=== PATIENT | female | born 1985 | race Caucasian/White ===

== ENCOUNTER 2023-10-08 20:05 | Outpatient (REF) | payer OTHER, SELFPAY ==
[2023-10-12 16:11] LABS: Age Gdln ACOG Testing Note (.); HPV Aptima Negative (Negative); IGP, Aptima HPV, rfx 16/18,45 Note (.)
== END 2023-10-08 20:06 | disposition home or self-care (01) ==
LOC: LAB 20:05
PROVIDERS: Visit Provider Emergency Medicine
DX: Z01.419 Encounter for gynecological examination (general) (routine) without abnormal findings (principal)
CPT/HCPCS: 87624; G0145

== ENCOUNTER 2024-08-14 14:05 | Outpatient (OUT) | payer OTHER, SELFPAY ==
--- NOTE | 2024-08-14 14:07 | US_ITS ---
[address] [address] Patient Name: SCOTT GALVAN MRN: [id number] date: 1985 Sex: F Assigned Patient Location: [facility] Current Patient Location: [facility] Accession/Order Number: [id number] Exam Date: 08/14/2024 14:08 Report Date: 08/14/2024 15:39 At the request of: ANJUM KUHN Procedure: US OB transvaginal EXAMINATION: US OB transvaginal HISTORY: MISSED MENSES COMPARISON: No relevant comparison available. FINDINGS: Transvaginal images Castillo intrauterine gestation Gestational sac: 4.59 cm, 10 weeks 1 day CRL: 3.10 cm, 10 weeks 0 days Yolk sac: 5.5 mm Heart rate: 175 beats minute Cervix: Closed, 3.4 cm The uterus is normal, anteverted, anteflexed The right ovary is not visualized The left ovary is normal with a corpus luteal cyst Clinical age: 9 weeks 2 days Clinical RONAL: 03/17/2025 Ultrasound age: 10 weeks 0 days Ultrasound RONAL: 03/12/2025 US/US OB transvaginal IMPRESSION: Viable castillo intrauterine gestation measuring 10 weeks 0 days Electronically authenticated by: RUTH VALENTINE Date: 08/14/2024 15:39
--- OUTSIDE RECORDS SUMMARY | 2024-08-14 14:12 | XMS_ITS | CCD ---
Author Organization [facility] Care Team Providers Care Metal Pattern Maker Name Role Phone Pedrito SILVESTRE Primary Care Physician HATTIE, DR VALERO Consulting Unavailable HATTIE, DR VALERO Admitting Unavailable HATTIE, DR VALERO Attending Unavailable REQUEST, DR ACOSTA LISTED Primary Care Unavaila ble REQUEST, DR ACOSTA LISTED Primary Care Unavaila ble HATTIE, DR VALERO Admitting Unavailable HATTIE, DR VALERO Attending Unavailable HATTIE, DR VALERO Consulting Unavailable HATTIE, DR VALERO Admitting Unavailable REQUEST, DR NONE LISTED Primary Care Unavaila ble HATTIE, DR VALERO Attending Unavailable HATTIE, DR VALERO Consulting Unavailable ZIEBER, DR VALDEMAR Perdomo Consulting Unavailable HATTIE, DR VALERO Admitting Unavailable LICHA, DR JASON Kimball Primary Care Unavailable HATTIE, DR VALERO Attending Unavailable HATTIE, DR VALERO Consulting Unavailable HATTIE, DR VALERO Attending Unavailable HATTIE, DR VALERO Admitting Unavailable REQUEST, DR NONE LISTED Primary Care Unavaila ble HATTIE, DR VALERO Consulting Unavailable TAMY, DR TEJADA Consulting Unavailable HATTIE, DR VALERO Admitting Unavailable LICHA, DR JASON Kimball Primary Care Unavailable HATTIE, DR VALERO Attending Unavailable HATTIE, DR VALERO Consulting Unavailable HATTIE, DR VALERO Procedure Practitioner Unavailab MOISES aWterman II Consulting Unavailable HATTIE, DR VALERO Admitting Unavailable LICHA, DR JASON Kimball Primary Care Unavailable HATTIE, DR VALERO Attending Unavailable HATTIE, DR VALERO Consulting Unavailable WACO, DR RUTH Negron Consulting Unavailable HATTIE, DR VALERO Admitting Unavailable HATTIE, DR VALERO Attending Unavailable REQUEST, DR KARLA LISTED Primary Care Unavaila ble HATTIE, DR VALERO Consulting Jason Guzman Primary Care Physician Ap Frey V. Attending Ap Henry V. Admitting Vinod Valdez Attending Ap Lloyd V. Attending Violeta Redmond Attending Unavailab ANJUM Long Attending Unavailable Medications Current Medications Medication Drug Class(es) Dates Sig (Normalized) Sig (Original) amoxicillin 875 mg / clavulanate 125 mg oral tablet (1 source) Penicillin-class Antibacterial Start: 01-03-2023 End: 01-13-2023 take 1 tablet by mouth every twelve hours Augmentin 875 mg oral tablet = 1 tab(s), Oral, q12hr, X 10 day(s), # 20 tab(s), Refills(s) 0, Pharmacy: [facility] #[id number], 170, cm, 01/03/23 11:05:00 EST, Height/Length Dosing, 64.4, kg, 01/03/23 11:05:00 EST, Weight Dosing Start Date: 01/03/23 Stop Date: 01/13/23 Status: Ordered Co-Q10 50 mg oral capsule (2 sources) Start: 10-06-2020 take 1 capsule by mouth once daily Co-Q10 50 mg oral capsule 50 mg = 1 cap(s), Oral, Daily, Refills(s) 0 Start Date: 10/06/20 Status: Ordered guaiFENesin (1 source) Start: 01-03-2023 Mucinex D oral tablet, extended release 1 tab(s), Oral, BID for cold symptoms, 20 tab(s), Refill(s) 0, [facility] #[id number], 170, cm, 01/03/23 11:05:00 EST, Height/Length Dosing, 64.4, kg, 01/03/23 11:05:00 EST, Weight Dosing Start Date: 01/03/23 Status: Ordered lidocaine 0.05 mg/mg medicated patch (2 sources) Antiarrhythmic, Amide Local Anesthetic Start: 11-23-2022 Lidoderm 5% Patch 1 patch(es), Topical, Daily, 7 EA, Refill(s) 0, apply 12 hours on and 12 hours off daily, [facility] #[id number], 170, cm, 11/23/22 1:58:00 EST, Height/Length Dosing, 70.3, kg, 11/23/22 1:58:00 EST, Weight Dosing Start Date: 11/23/22 Status: Ordered Omeprazole (1 source) Proton Pump Inhibitor Start: 01-03-2023 omeprazole Refills(s) 0 Start Date: 01/03/23 Status: Ordered predniSONE 20 mg oral tablet (1 source) Start: 11-23-2022 End: 11-27-2022 take 2 tablets by mouth once daily predniSONE 20 mg Tab 40 mg = 2 tab(s), Oral, Daily, X 4 day(s), # 8 tab(s), Refills(s) 0, Pharmacy: [facility] #[id number], 170, cm, 11/23/22 1:58:00 EST, Height/Length Dosing, 70.3, kg, 11/23/22 1:58:00 EST, Weight Dosing Start Date: 11/23/22 Stop Date: 11/27/22 Status: Ordered Elite oral capsule (2 sources) Start: 12-12-2019 take 1 capsule by mouth once daily Elite oral capsule 1 cap(s), Oral, Daily Start Date: 12/12/19 Status: Ordered Problems Problem Classification Problem Date Documented Date Episodic/Chronic Immunizations and screening for infectious disease (6 sources) Encounter for screening for human papillomavirus (HPV); Translations: [Contact with and (suspected) exposure to infections with a predominantly sexual mode of transmission] Onset: 07-03-2022 Episodic Menstrual disorders (5 sources) Irregular menstruation, unspecified; Translations: [IRREGULAR MENSTRUATION UNSPECIFIED] Onset: 06-16-2022 Chronic OB-related trauma to perineum and vulva (1 source) Second degree perineal laceration during delivery; Translations: [SECOND DEG PERINEAL LAC DUR DELIV] Onset: 12-27-2022 Episodic Other and unspecified benign neoplasm (2 sources) Fibroadenoma of breast 10-08-2020 Episodic Other complications of (4 sources) Other specified related conditions, third trimester; Translations: [OTH SPEC PREG RELATED COND 3RD TRI] Onset: 11-16-2022 Episodic Other female genital disorders (1 source) Other specified noninflammatory disorders of vagina; Translations: [OTH SPEC NONINFLAMMATORY D/O VAGINA] Onset: 09-29-2022 Episodic Other lower respiratory disease (1 source) Pleuritic pain; Translations: [Pleurodynia] Onset: 11-23-2022 Episodic Other and delivery including normal (12 sources) Encounter for supervision of normal , unspecified, third trimester; Translations: [Single live ] Onset: 10-14-2022 Episodic Other screening for suspected conditions (not mental disorders or infectious disease) (9 sources) Encounter for screening for malignant neoplasm of cervix; Translations: [Encounter for other specified screening] Onset: 07-05-2022 Episodic Other skin disorders (2 sources) Loss of hair 05-31-2021 Episodic Other upper respiratory disease (1 source) Disorder of the nose; Translations: [Other specified disorders of nose and nasal sinuses] Onset: 01-03-2023 Episodic Other upper respiratory infections (1 source) Chronic sinusitis; Translations: [Chronic sinusitis, unspecified] Onset: 01-03-2023 Chronic Otitis media and related conditions (1 source) Otitis media; Translations: [Otitis media, unspecified, left ear] Onset: 01-03-2023 Episodic Residual codes; unclassified (1 source) 37 weeks gestation of ; Translations: [37 WEEKS GESTATION OF ] Onset: 12-27-2022 Episodic Residual codes; unclassified (1 source) Unspecified blood type, Rh negative; Translations: [UNSPECIFIED BLOOD TYPE RH NEGATIVE] Onset: 11-21-2022 Episodic Residual codes; unclassified (1 source) 28 weeks gestation of ; Translations: [28 WEEKS GESTATION OF ] Onset: 11-21-2022 Episodic Residual codes; unclassified (1 source) Body mass index 20-24 - normal; Translations: [Body mass index (BMI) 22.0-22.9, adult] Onset: 01-03-2023 Episodic Viral infection (2 sources) Verruca plantaris 05-31-2021 Episodic Results Test Name Value Interpretation Reference Range Facility Grp A Strp PCRon 08-22-2023 Group A Strep Negative Normal [facility] Comment on above: Result Comment: Test ing performed using DNA amplification. Performed By: #### 1 [id number] ####[facility] [address] [place] [address] Grp A Strp Intrl Ctrl Pass Normal Fis her [facility] Comment on above: Performed By: #### 1 [id number] ####[facility] [address] [place] [address] Ambulatory Visit Summaryon 0 08-21-2023 Ambulatory Visit Summary SCOTT GALVAN :1985 Visit Date:08/21/2023 Ambulatory Visit Instructions Your Diagnosis Right otitis media Sore throat Your Care Team Attending Physician - Tk BARRETO, Ap Negron. Primary Care Physician - LICHA SIEGEL, Jason Kimball This Is Your Medications List amoxicillin (amoxicillin 500 mg Cap) predniSONE (predniSONE 20 mg Tab) Contact prescribing physician if questions or concerns clindamycin topical (clindamycin Top 1% Gel) multivitamin, ( Elite oral capsule) omeprazole ubiquinone (Co-Q10 50 mg oral capsule) Procedures Performed LEEP (11/26/2012), Colposcopy, Tooth extraction, multiple. Discharge Vitals Temperature (Oral) 37.4 ?C Heart Rate (Peripheral) 89 Blood Pressure 114/76 Height 169 cm Height 67 in Weight 62.1 kg Weight 136.62 lb BMI 21.74 What to do next You Need to Schedule the Following Appointments Follow Up with LICHA SIEGEL, Jason Kimball, MED When: Where: [facility] [address] [place] [address]- Medications What How Much When Why Instructions New amoxicillin (amoxicillin 500 mg Cap) 1 Capsules By Mouth Every 12 hours Right otitis media Pickup at [facility] #[id number] New predniSONE (predniSONE 20 mg Tab) 2 Tablets By Mouth Every day Right otitis media Duration: 5 Days with food or milk Pickup at [facility] #[id number] Unchanged clindamycin topical (clindamycin Top 1% Gel) Contact prescribing physician if questions or concerns Unchanged multivitamin, ( Elite oral capsule) 1 Capsules By Mouth Every day Contact prescribing physician if questions or concerns Unchanged omeprazole Contact prescribing physician if questions or concerns Unchanged ubiquinone (Co-Q10 50 mg oral capsule) 1 Capsules By Mouth Every day Contact prescribing physician if questions or concerns Pharmacy Information [facility] #[id number]: [address] [place], [place] [id number] [phone] Medications and Immunizations Administered Not Given influenza virus vaccine, inactivated, Temporary contraindication - reschedule Allergies No Known Allergies Problems Ongoing - Any problem that you are currently receiving treatment for. 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 Tender. ? Burning. ? Irritated. ? Scratchy. ? Painful when you swallow. ? Painful when you talk. Many things can cause a sore throat, such as: ? An infection. ? Allergies. ? Dry air. ? Smoke or pollution. ? Radiation treatment for cancer. ? Gastroesophageal reflux disease (GERD). ? A tumor. A sore throat can be the first sign of another sickness. It can happen with other problems, like: ? Coughing. ? Sneezing. ? Fever. ? Swelling of the glands in the neck. Most sore throats go away without treatment. Follow these instructions at home: Medicines ? Take auki-vum-dnubzro and prescription medicines only as told by your doctor. ? Children often get sore throats. Do not give your child aspirin. ? Use throat sprays to soothe your throat as told by your health care provider. Managing pain To help with pain: ? Sip warm liquids, such as broth, herbal tea, or warm water. ? Eat or drink cold or frozen liquids, such as frozen ice pops. ? Rinse your mouth (gargle) with a salt water mixture 3?4 times a day or as needed. ? To make salt water, dissolve ??1 tsp (3?6 g) of salt in 1 cup (237 mL) of warm water. ? Do not swallow this mixture. ? Suck on hard candy or throat lozenges. ? Put a cool-mist humidifier in your bedroom at night. ? Sit in the bathroom with the door closed for 5?10 minutes while you run hot water in the shower. General instructions ? Do not smoke or use any products that contain nicotine or tobacco. If you need help quitting, ask your doctor. ? Get plenty of rest. ? Drink enough fluid to keep your pee (urine) pale yellow. ? Wash your hands often for at least 20 seconds with soap and water. If soap and water are not available, use hand combatant diver officer. Contact a doctor if: ? You have a fever for more than 2?3 days. ? You keep having symptoms for more than 2?3 days. ? Your throat does not get better in 7 days. ? You have a fever and your symptoms suddenly get worse. ? Your child who is 3 months to 3 years old has a temperature of 102.2?F (39?C) or higher. Get help right away if: ? You have trouble breathing. ? You cannot swallow fluids, soft foods, or your spit. ? You have swelling in your throat or neck that gets worse. ? You feel like you may vomit (nauseous) and this feeling lasts a long time. ? You cannot stop vomiting. These symptoms may be an emergency. Get (more content not included)... Normal [facility] Family Medicine Office/Clini c Noteon 08-21-2023 Family Medicine Office/Clinic Note Chief Complaint EST sore throat, right ear pain HPI Staff patient present for sore throat/ earache, onset Sunday sinus congestion- no swollen nodes- yes red/ white spots- red cough- no ear pain- right fever/chills- chills body aches- yes nausea/ vomiting- no allergies- no medication taken- dayquil/nyquil, chloraspetic, ibuprofen, History of Present Illness Portions of this record may have been created with voice recognition artificial intelligence software, specifically [employer], [email or web address] and or [employer]. Substitutions may have occurred due to the inherent limitations of voice recognition and artificial intelligence software. Staff hpi reviewed. Patient is a 38-year-old female complaint of sore throat mostly on the right side. States pain in the right ear. Patient states the symptoms began on the slow weekend. States has taken DayQuil NyQuil Chloraseptic and ibuprofen. No known drug allergies. Review of Systems PHQ Score Initial Depression Screen Score: 0 Physical Exam Vitals & Measurements T: 37.4 ?C(Oral) HR: 89(Peripheral) BP: 114/76 SpO2: 99% HT: 67 in HT: 169 cm WT: 62.1 kg WT: 136.62 lb BMI: 21.74 General - alert no acute distress Skin - warm dry Head -normocephalic atraumatic ENT-right EAC with mild erythema and edema right TM with subtle erythema, left TM clear pearly fischer-white bilaterally no pharyngeal erythema or exudates Cardiovascular - regular rate regular rhythm Respiratory - lungs clear to auscultation, non-labored respirations, breath sounds equal Assessment/Plan 1. Right otitis media (H66.91: Otitis media, unspecified, right ear) Patient treated with amoxicillin and prednisone. Prescription for an oral steroid has been provided for you. Take the steroid early in the day with food and/or milk to help prevent upset stomach and acid reflux. Taking a steroid later in the day can keep you awake at night. Follow-up with PCP in 3 to 5 days for recheck. Sooner with any worsening symptoms. Ordered: amoxicillin, 500 mg = 1 cap(s), Oral, q12hr, # 20 cap(s), Refills(s) 0, Pharmacy: [facility] #[id number], 169, cm, 08/21/23 9:39:00 EDT, Height/Length Dosing, 62.1, kg, 08/21/23 9:39:00 EDT, Weight Dosing predniSONE, 40 mg = 2 tab(s), Oral, Daily, with food or milk, X 5 day(s), # 10 tab(s), Refills(s) 0, Pharmacy: [facility] #[id number], 169, cm, 08/21/23 9:39:00 EDT, Height/Length Dosing, 62.1, kg, 08/21/23 9:39:00 EDT, Weight Dosing 2. Sore throat (J02.9: Acute pharyngitis, unspecified) Strep test is negative. 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 Never Smokeless Tobacco Use:., 08/21/2023 Never (less than 100 in lifetime) Tobacco Use:. Never Smokeless Tobacco Use:., 01/03/2023 Never (less than 100 in lifetime) Tobacco Use:., 05/31/2021 Family History Family history is negative Immunizations Vaccine Date Status Comments influenza virus vaccine, inactivated - Not Given Temporary contraindication - reschedule influenza virus vaccine, inactivated 09/14/2021 Recorded SARS-CoV-2 (COVID-19) mRNA-1273 vaccine 04/29/2021 Recorded Health Dept SARS-CoV-2 (COVID-19) mRNA-1273 vaccine 04/01/2021 Recorded Health Dept influenza virus vaccine, inactivated 09/21/2020 Recorded influenza virus vaccine, inactivated 09/06/2020 Recorded human papillomavirus vaccine 11/12/2013 Recorded human papillomavirus vaccine 07/16/2013 Recorded human papillomavirus vaccine 05/14/2013 Recorded diphtheria/pertussis , acel/tetanus adult 09/10/2011 Given Lab Results Ambulatory Point of Care Results Rapid Strep POC Result: Negative (08/21/23 09:50:00) Normal [facility] Comment on above: Result Comment: Elec tronically Signed By: Tk BARRETO, Ap Alvarez\.br\Date and Time Signed: 08/21/23 10:01 EDT Patient Educationon 08-21-20 23 Patient Education ENT Otitis Media, Adult Otitis media occurs when there is inflammation and fluid in the middle ear with signs and symptoms of an acute infection. The middle ear is a part of the ear that contains bones for hearing as well as air that helps send sounds to the brain. When infected fluid builds up in this space, it causes pressure and can lead to an ear infection. The eustachian tube connects the middle ear to the back of the nose (nasopharynx) and normally allows air into the middle ear. If the eustachian tube becomes blocked, fluid can build up and become infected. What are the causes? This condition is caused by a blockage in the eustachian tube. This can be caused by mucus or by swelling of the tube. Problems that can cause a blockage include: ? A cold or other upper respiratory infection. ? Allergies. ? An irritant, such as tobacco smoke. ? Enlarged adenoids. The adenoids are areas of soft tissue located high in the back of the throat, behind the nose and the roof of the mouth. They are part of the body's defense system (immune system). ? A mass in the nasopharynx. ? Damage to the ear caused by pressure changes (barotrauma). What increases the risk? You are more likely to develop this condition if you: ? Smoke or are exposed to tobacco smoke. ? Have an opening in the roof of your mouth (cleft palate). ? Have gastroesophageal reflux. ? Have an immune system disorder. What are the signs or symptoms? Symptoms of this condition include: ? Ear pain. ? Fever. ? Decreased hearing. ? Tiredness (lethargy). ? Fluid leaking from the ear, if the eardrum is ruptured or has burst. ? Ringing in the ear. How is this diagnosed? This condition is diagnosed with a physical exam. During the exam, your health care provider will use an instrument called an otoscope to look in your ear and check for redness, swelling, and fluid. He or she will also ask about your symptoms. Your health care provider may also order tests, such as: ? A pneumatic otoscopy. This is a test to check the movement of the eardrum. It is done by squeezing a small amount of air into the ear. ? A tympanogram. This is a test that shows how well the eardrum moves in response to air pressure in the ear canal. It provides a graph for your health care provider to review. How is this treated? This condition can go away on its own within 3?5 days. But if the condition is caused by a bacterial infection and does not go away on its own, or if it keeps coming back, your health care provider may: ? Prescribe antibiotic medicine to treat the infection. ? Prescribe or recommend medicines to control pain. Follow these instructions at home: ? Take tnoq-euk-kjlfbey and prescription medicines only as told by your health care provider. ? If you were prescribed an antibiotic medicine, take it as told by your health care provider. Do not stop taking the antibiotic even if you start to feel better. ? Keep all follow-up visits. This is important. Contact a health care provider if: ? You have bleeding from your nose. ? There is a lump on your neck. ? You are not feeling better in 5 days. ? You feel worse instead of better. Get help right away if: ? You have severe pain that is not controlled with medicine. ? You have swelling, redness, or pain around your ear. ? You have stiffness in your neck. ? A part of your face is not moving (paralyzed). ? The bone behind your ear (mastoid bone) is tender when you touch it. ? You develop a severe headache. Summary ? Otitis media is redness, soreness, and swelling of the middle ear, usually resulting in pain and decreased hearing. ? This condition can go away on its own within 3?5 days. ? If the problem does not go away in 3?5 days, your health care provider may give you medicines to treat the infection. ? If you were prescribed an antibiotic medicine, take it as told by your health care provider. ? Follow all instructions that were given to you by your health care provider. This information is not intended to replace advice given to you by your health care provider. Make sure you discuss any questions you have with your health care provider. Document Revised: 02/20/2022 Document Reviewed: 02/20/2022 [employer] Patient Education ? 2022 [employer] Infectious Disease Sore Throat When you have a sore throat, your throat may feel: ? Tender. ? Burning. ? Irritated. ? Scratchy. ? Painful when you swallow. ? Painful when you talk. Many things can cause a sore throat, such as: ? An infection. ? Allergies. ? Dry air. ? Smoke or pollution. ? Radiation treatment for cancer. ? Gastroesophageal reflux disease (GERD). ? A tumor. A sore throat can be the first sign of another sickness. It can happen with other problems, like: ? Coughing. ? Sneezing. ? Fever. ? Swelling of the glands in the neck. Most sore throats go away wit (more content not included)... Normal [facility] Ambulatory Visit Summaryon 0 01-03-2023 Ambulatory Visit Summary SCOTT GALVAN :1985 Visit Date:01/03/2023 Ambulatory Visit Instructions Your Diagnosis BMI 22.0-22.9, adult Rhinorrhea Sinusitis Your Care Team Attending Physician - Claude FARMER, Violeta Stanley Primary Care Physician - LICHA SIGEEL, Jason Kimball This Is Your Medications List lidocaine topical (Lidoderm 5% Patch) multivitamin, ( Elite oral capsule) omeprazole ubiquinone (Co-Q10 50 mg oral capsule) Procedures Performed LEEP (11/26/2012), Colposcopy, Tooth extraction, multiple. Discharge Vitals Heart Rate (Peripheral) 93 Respiratory Rate 18 Blood Pressure 116/68 Height 170 cm Height 67 in Weight 64.4 kg Weight 141.68 lb BMI 22.28 Medications What How Much When Instructions Unchanged lidocaine topical (Lidoderm 5% Patch) 1 Patches Topical Every day apply 12 hours on and 12 hours off daily Unchanged multivitamin, ( Elite oral capsule) 1 Capsules By Mouth Every day Unchanged omeprazole Unchanged ubiquinone (Co-Q10 50 mg oral capsule) 1 Capsules By Mouth Every day Allergies No Known Allergies Problems Ongoing - Any problem that you are currently receiving treatment for. 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 --- sinus drainage, sinus congestion, bilateral ear discomfort, headache x 1-2 wks OTC Tylenol. PT is breast feeding History of Present Illness Pt is 37 years old, presenting today with acute concern of possible sinus issues. symptoms have been present for approximately 10 days fever? no subjective fever? no chills? no body aches? no runny nose? yes congestion? yes - copious clear sore throat? no new olfactory and taste disorder? no headache? yes fatigue? yes cough? no wheezing? no chest pain/tightness? no nausea or vomiting? no abdominal pain? no diarrhea? no appetite changes? diminished urinating normal no ear pain/pressure? left side feels completely plugged, right side is sore sick contacts? was sick recently recent travel? no context (getting better, worse?) was getting better but then 3 days ago it started getting worse. remedies attempted: tylenol Hx allergies, asthma, COPD, DM, CVD, CKD, HTN: no Smoker: no Hx deviated septum/sinus surgeries: no No known exposure to individuals with COVID-19 or those under investigation. COVID vaccine status: yes Physical Exam Vitals & Measurements HR: 93(Peripheral) RR: 18 BP: 116/68 SpO2: 98% HT: 67 in HT: 170 cm WT: 64.4 kg WT: 141.68 lb BMI: 22.28 General: well developed, well groomed, well nourished, in no acute distress. Eyes: pupils equal, round, reactive to light. Conjunctivae normal and sclera clear. Ears: bilateral external canals intact , no discharge. Right tympanic membrane pearly fischer and intact, light reflex present. Left tympanic membrane has fluid line present, bulging, erythema present, light reflex absent, No pain with manipulation of tragus and pinna bilaterally. Silva test results: sound lateralized to left side. Rinne test results: AC > BC Nose: no congestion, no erythema; pink & moist turbinates; clear rhinorrhea. Mouth: mucous membranes pink, moist and intact. Mulat posterior oropharynx, no palatal inflammation, uvula midline, no cobble-stoning, no enlarged tonsils, no tonsillar exudate, no ulcers, no active post nasal drip. Good dentition. Neck: supple, no masses palpable. Trachea midline. No palpable cervical adenopathy. Thyroid without nodules/masses. Lungs: normal respiratory effort. Lungs clear and equal to auscultation throughout all barcenas anterior and posterior. Cardiovascular: S1 and S2 present, with regular rate and rhythm. No murmur. Abdomen: not assessed Musculoskeletal: No TMJ. Neurologic: Cranial nerves II-XII grossly intact. Skin: Mulat, warm and dry. No rashes, ulcerations, or suspicious lesions noted on visible/exposed skin. Mental status: alert and oriented x 3. Normal mood and affect, normal behavior for age. Assessment/Plan 1. Sinusitis (J32.9: Chronic sinusitis, unspecified) Given length of symptoms and sinus complaints, will treat with Augmentin x 10 days. Advised to complete antibiotics as ordered. Discussed expected improvement of symptoms within 7-10 days. Counseled pt to take probiotics or eat 2 Activia yogurts daily while on antibiotic to maintain normal gut jerry and to prevent c.diff. Push fluids and rest Can use nasal steroid spray and nasal saline to moisturize nostrils PRN. Use a netti pot lavage, use decongestant (sudafed) or Mucinex D, antihistamine (xyzole) and flonase PRN. Use cool-mist vaporizer or humidifier. Call if no improvement in 7-10 days, sooner if increasing cough, fever, or new symptoms. Patient verbalizes understanding. If no improvement at that time will consider changing drug class and/or refer to ENT for CT or MRI. Of note, Augmentin is safe with . Discussed benefit/risks with using Mucinex D while - pt verbalized understanding. Ordered: amoxicillin-clavulan ate, = 1 tab(s), Oral, q12hr, X 10 day(s), # 20 tab(s), Refills(s) 0, Pharmacy: [facility] #[id number], 170, cm, 01/03/23 11:05:00 EST, Height/Length Dosing, 64.4, kg, 01/03/23 11:05:00 EST, Weight Dosing guaifenesin-pseudoep hedrine, 1 tab(s), Oral, BID for cold symptoms, 20 tab(s), Refill(s) 0, [facility] #[id number], 170, cm, 01/03/23 11:05:00 EST, Height/Length Dosing, 64.4, kg, 01/03/23 11:05:00 EST, Weight Dosing 2. Left acute otitis media (H66.92: Otitis media, unspecified, left ear) Physical exam and symptoms consistent with left acute otitis media. Given patient has not had any recent antibiotics, will treat with Augmentin BID x 10 days. Take the antibiotic as ordered, even if symptoms get better, finish the antibiotic. Encouraged probiotic use/2 activia yogurts for GI health. Encouraged increased fluids, rest, warm compresses to ear for relief. Can take Motrin/Tylenol for pain. Advised to follow up with PCP if symptoms persist or worsen after 5 days of ATB use. Patient agrees with treatment plan. Of note, Augmentin is safe in . 3. Rhinorrhea (J34.89: Other specified disorders of nose and nasal sinuses) PT to use OTC (more content not included)... Normal [facility] Comment on above: Result Comment: Elec tronically Signed By: Claude FARMER, Violeta Stanley\.br\Date and Time Signed: 01/03/23 11:42 EST Patient Educationon 01-03-20 Patient Education ENT Otitis Media, Adult Otitis media occurs when there is inflammation and fluid in the middle ear. Your middle ear is a part of the ear that contains bones for hearing as well as air that helps send sounds to your brain. What are the causes? This condition is caused by a blockage in the eustachian tube. This tube drains fluid from the ear to the back of the nose (nasopharynx). A blockage in this tube can be caused by an object or by swelling (edema) in the tube. Problems that can cause a blockage include: ? A cold or other upper respiratory infection. ? Allergies. ? An irritant, such as tobacco smoke. ? Enlarged adenoids. The adenoids are areas of soft tissue located high in the back of the throat, behind the nose and the roof of the mouth. ? A mass in the nasopharynx. ? Damage to the ear caused by pressure changes (barotrauma). What are the signs or symptoms? Symptoms of this condition include: ? Ear pain. ? A fever. ? Decreased hearing. ? A headache. ? Tiredness (lethargy). ? Fluid leaking from the ear. ? Ringing in the ear. How is this diagnosed? This condition is diagnosed with a physical exam. During the exam your health care provider will use an instrument called an otoscope to look into your ear and check for redness, swelling, and fluid. He or she will also ask about your symptoms. Your health care provider may also order tests, such as: ? A test to check the movement of the eardrum (pneumatic otoscopy). This test is done by squeezing a small amount of air into the ear. ? A test that changes air pressure in the middle ear to check how well the eardrum moves and whether the eustachian tube is working (tympanogram). How is this treated? This condition usually goes away on its own within 3?5 days. But if the condition is caused by a bacteria infection and does not go away own its own, or keeps coming back, your health care provider may: ? Prescribe antibiotic medicines to treat the infection. ? Prescribe or recommend medicines to control pain. Follow these instructions at home: ? Take hiqp-wqs-zskyobh and prescription medicines only as told by your health care provider. ? If you were prescribed an antibiotic medicine, take it as told by your health care provider. Do not stop taking the antibiotic even if you start to feel better. ? Keep all follow-up visits as told by your health care provider. This is important. Contact a health care provider if: ? You have bleeding from your nose. ? There is a lump on your neck. ? You are not getting better in 5 days. ? You feel worse instead of better. Get help right away if: ? You have severe pain that is not controlled with medicine. ? You have swelling, redness, or pain around your ear. ? You have stiffness in your neck. ? A part of your face is paralyzed. ? The bone behind your ear (mastoid) is tender when you touch it. ? You develop a severe headache. Summary ? Otitis media is redness, soreness, and swelling of the middle ear. ? This condition usually goes away on its own within 3?5 days. ? If the problem does not go away in 3?5 days, your health care provider may prescribe or recommend medicines to treat your symptoms. ? If you were prescribed an antibiotic medicine, take it as told by your health care provider. This information is not intended to replace advice given to you by your health care provider. Make sure you discuss any questions you have with your health care provider. Document Released: 08/17/2005 Document Revised: 10/25/2018 Document Reviewed: 11/02/2017 [employer] Patient Education ? 2020 [employer] Infectious Disease Sinusitis, Adult Sinusitis is soreness and swelling (inflammation) of your sinuses. Sinuses are hollow spaces in the bones around your face. They are located: ? Around your eyes. ? In the middle of your forehead. ? Behind your nose. ? In your cheekbones. Your sinuses and nasal passages are lined with a fluid called mucus. Mucus drains out of your sinuses. Swelling can trap mucus in your sinuses. This lets germs (bacteria, virus, or fungus) grow, which leads to infection. Most of the time, this condition is caused by a virus. What are the causes? This condition is caused by: ? Allergies. ? Asthma. ? Germs. ? Things that block your nose or sinuses. ? Growths in the nose (nasal polyps). ? Chemicals or irritants in the air. ? Fungus (rare). What increases the risk? You are more likely to develop this condition if: ? You have a weak body defense system (immune system). ? You do a lot of swimming or diving. ? You use nasal sprays too much. ? You smoke. What are the signs or symptoms? The main symptoms of this condition are pain and a feeling of pressure around the sinuses. Other symptoms include: ? Stuffy nose (congestion). ? Runny nose (drainage). ? Swelling and warmth in the sinuses. ? Headache. ? Too (more content not included)... Normal [facility] CBC AUTO DIFFon 12-24-2022 BASO # 0.1 103/ul Normal 0.0-0.1 [facility] Comment on above: Performed By: #### C BC #### [facility] [address] [place] [address] Dr. Daya Simms Basophils/100 WBC (Bld) 0.4 % Normal 0.2-2.0 [facility] Comment on above: Performed By: #### C BC #### [facility] [address] [address] [address] Daya Simms EO # 0.1 103/ul Normal 0.0-0.7 [facility] Comment on above: Performed By: #### C BC #### [facility] [address] [place] [address] Dr. Daya Simms Eosinophils/100 WBC (Bld) 1.2 % Normal 0.9-7.0 [facility] Comment on above: Performed By: #### C BC #### [facility] [address] [address] [address] Daya Simms Erythrocyte distribution width (RBC) [Ratio] 13.3 % Normal 11.0-15.0 [facility] Comment on above: Performed By: #### C BC #### [facility] [address] [place] [address] Dr. Daya Simms Hematocrit (Bld) [Volume fraction] 28.6 % Critically low 36.0-48.0 [facility] Comment on above: Performed By: #### C BC #### [facility] [address] [place] [address] Dr. Daya Simms Hemoglobin (Bld) [Mass/Vol] 9.7 g/dL Critically low 12.0-16.0 [facility] Comment on above: Performed By: #### C BC #### [facility] [address] [place] [address] Dr. Daya Simms IG # 0.08 10e3/ul Critically high 0.00-0.03 [facility] Comment on above: Performed By: #### C BC #### [facility] [address] [place] [address] Dr. Daya Simms IG % 0.7 % Critically high 0.0-0.5 [facility] Comment on above: Performed By: #### C BC #### [facility] [address] [place] [address] Dr. Daya Simms LYMPH # 2.3 103/ul Normal 1.2-3.8 [facility] Comment on above: Performed By: #### C BC #### [facility] [address] [place] [address] Dr. Daya Simms Lymphocytes/100 WBC (Bld) 20.4 % Critically low 20.5-60.0 [facility] Comment on above: Performed By: #### C BC #### [facility] [address] [place] [address] Dr. Daya Simms MANUAL DIFF REQ NO Normal [facility] Comment on above: Performed By: #### C BC #### [facility] [address] [address] [address] Daya Simms MCH (RBC) [Entitic mass] 29.4 pg Normal 26.7-34.0 [facility] Comment on above: Performed By: #### C BC #### [facility] [address] [place] [address] Dr. Daya Simms MCHC (RBC) [Mass/Vol] 33.9 g/dL Normal 29.9-35.2 [facility] Comment on above: Performed By: #### C BC #### [facility] [address] [place] [address] Dr. Daya Simms MCV (RBC) [Entitic vol] 86.7 fL Normal 81.0-99.0 [facility] Comment on above: Performed By: #### C BC #### [facility] [address] [place] [address] Dr. Daya Simms MONO # 0.7 103/ul Normal 0.3-0.8 [facility] Comment on above: Performed By: #### C BC #### [facility] [address] [place] [address] Dr. Daya Simms Monocytes/100 WBC (Bld) 6.3 % Normal 1.7-12.0 [facility] Comment on above: Performed By: #### C BC #### [facility] [address] [place] [address] Dr. Daya Simms NEUT # 8.2 103/ul Critically high 1.4-6.5 [facility] Comment on above: Performed By: #### C BC #### [facility] [address] [place] [address] Dr. Daya Simms Neutrophils/100 WBC (Bld) 71.0 % Normal 43.0-75.0 [facility] Comment on above: Performed By: #### C BC #### [facility] [address] [place] [address] Dr. Daya Simms Platelet mean volume (Bld) [Entitic vol] 9.7 fL Normal 9.5-13.5 [facility] Comment on above: Performed By: #### C BC #### [facility] [address] [address] [address] Daya Simms PLT 200 103/ul Normal 150-450 [facility] Comment on above: Performed By: #### C BC #### [facility] [address] [place] [address] Dr. Daya Simms RBC 3.30 106/ul Critically low 4.20-5.40 [facility] Comment on above: Performed By: #### C BC #### [facility] [address] [place] [address] Dr. Daya Simms WBC 11.5 103/ul Critically high 4.0-11.0 [facility] Comment on above: Performed By: #### C BC #### [facility] [address] [place] [address] Dr. Daya Simms SCREENon 12-24-2022 SCREEN Negative Normal [facility] Comment on above: Performed By: #### C BC #### [facility] [address] [place] [address] Dr. Daya Simms CBC AUTO DIFFon 12-22-2022 BASO # 0.1 103/ul Normal 0.0-0.1 [facility] Comment on above: Performed By: #### C BC #### [facility] [address] [place] [address] Dr. Daya Simms Basophils/100 WBC (Bld) 0.5 % Normal 0.2-2.0 [facility] Comment on above: Performed By: #### C BC #### [facility] [address] [place] [address] Dr. Daya Simms EO # 0.1 103/ul Normal 0.0-0.7 [facility] Comment on above: Performed By: #### C BC #### [facility] [address] [place] [address] Dr. Daya Simms Eosinophils/100 WBC (Bld) 0.7 % Critically low 0.9-7.0 [facility] Comment on above: Performed By: #### C BC #### [facility] [address] [place] [address] Dr. Daya Simms Erythrocyte distribution width (RBC) [Ratio] 13.1 % Normal 11.0-15.0 [facility] Comment on above: Performed By: #### C BC #### [facility] [address] [place] [address] Dr. Daya Simms Hematocrit (Bld) [Volume fraction] 37.5 % Normal 36.0-48.0 [facility] Comment on above: Performed By: #### C BC #### [facility] [address] [place] [address] Dr. Daya Simms Hemoglobin (Bld) [Mass/Vol] 13.5 g/dL Normal 12.0-16.0 [facility] Comment on above: Performed By: #### C BC #### [facility] [address] [place] [address] Dr. Dyaa Simms IG # 0.06 10e3/ul Critically high 0.00-0.03 [facility] Comment on above: Performed By: #### C BC #### [facility] [address] [place] [address] Dr. Daya Simms IG % 0.5 % Normal 0.0-0.5 [facility] Comment on above: Performed By: #### C BC #### [facility] [address] [place] [address] Dr. Daya Simms LYMPH # 2.9 103/ul Normal 1.2-3.8 [facility] Comment on above: Performed By: #### C BC #### [facility] [address] [place] [address] Dr. Daya Simms Lymphocytes/100 WBC (Bld) 22.1 % Normal 20.5-60.0 [facility] Comment on above: Performed By: #### C BC #### [facility] [address] [place] [address] Dr. Daya Simms MANUAL DIFF REQ NO Normal [facility] Comment on above: Performed By: #### C BC #### [facility] [address] [place] [address] Dr. Daya Simms MCH (RBC) [Entitic mass] 29.8 pg Normal 26.7-34.0 [facility] Comment on above: Performed By: #### C BC #### [facility] [address] [place] [address] Dr. Daya Simms MCHC (RBC) [Mass/Vol] 36.0 g/dL Critically high 29.9-35.2 [facility] Comment on above: Performed By: #### C BC #### [facility] [address] [address] [address] Daya Simms MCV (RBC) [Entitic vol] 82.8 fL Normal 81.0-99.0 [facility] Comment on above: Performed By: #### C BC #### [facility] [address] [place] [address] Dr. Daya Simms MONO # 0.9 103/ul Critically high 0.3-0.8 [facility] Comment on above: Performed By: #### C BC #### [facility] [address] [place] [address] Dr. Daya Simms Monocytes/100 WBC (Bld) 6.6 % Normal 1.7-12.0 [facility] Comment on above: Performed By: #### C BC #### [facility] [address] [place] [address] Dr. Daya Simms NEUT # 9.3 103/ul Critically high 1.4-6.5 [facility] Comment on above: Performed By: #### C BC #### [facility] [address] [place] [address] Dr. Daya Simms Neutrophils/100 WBC (Bld) 69.6 % Normal 43.0-75.0 [facility] Comment on above: Performed By: #### C BC #### [facility] [address] [place] [address] Dr. Daya Simms Platelet mean volume (Bld) [Entitic vol] 9.5 fL Normal 9.5-13.5 [facility] Comment on above: Performed By: #### C BC #### [facility] [address] [place] [address] Dr. Daya Simms PLT 313 103/ul Normal 150-450 [facility] Comment on above: Performed By: #### C BC #### [facility] [address] [place] [address] Dr. Daya Simms RBC 4.53 106/ul Normal 4.20-5.40 [facility] Comment on above: Performed By: #### C BC #### [facility] [address] [place] [address] Dr. Daya Simms WBC 13.3 103/ul Critically high 4.0-11.[address] [facility] Comment on above: Performed By: #### C BC #### [facility] [address] [place] [address] Dr. Daya Simms CULTURE URINEon 12-22-2022 CULTURE URINE Culture Observations: NO GROWTH. Normal [facility] Comment on above: Performed By: #### U RCX #### [facility] [address] [place] [address] Dr. Daya Simms DRUG SCREEN RAPID (URINE)on 12-22-2022 AMP Negative Normal NEGATIVE [facility] Comment on above: Performed By: #### D RUGRPD #### [facility] [address] [place] [address] Dr. Daya Simms BAR Negative Normal NEGATIVE [facility] Comment on above: Performed By: #### D RUGRPD #### [facility] [address] [place] [address] Dr. Daya Simms BUP Negative Normal NEGATIVE [facility] Comment on above: Performed By: #### D RUGRPD #### [facility] [address] [place] [address] Dr. Daya Simms BZO Negative Normal NEGATIVE [facility] Comment on above: Performed By: #### D RUGRPD #### [facility] [address] [place] [address] Dr. Daya Simms MOY Negative Normal NEGATIVE [facility] Comment on above: Performed By: #### D RUGRPD #### [facility] [address] [place] [address] Dr. Daya Simms CUT-OFFS SEE BELOW Normal [facility] Comment on above: Result Comment: AMP (Amphetamine): 500ng/mL, BAR (Barbituates): 200 ng/mL, BZO (Benzodiazepines): 150 ng/mL, BUP (Buprenorphine): 10 ng/mL, MOY (Cocaine): 150 ng/mL, mAMP (Methamphetamine): 500 ng/mL, MTD (Methadone): 200 ng/mL, OPI (Opiates): 100 ng/mL, OXY (Oxycodone): 100 ng/mL, PCP (Phencyclidine): 25 ng/mL, PPX (Propoxyphene): 300 ng/mL, THC (Cannabinoids): 50 ng/mL, TCA (Trycyclic Antidepressants): 300 ng/mL Performed By: #### D RUGRPD #### [facility] [address] [place] [address] Dr. Daya Simms DRUG CUT HEADER DRUG CLASS TEST SYSTEM CUT-OFF CONCENTRATIONS ARE FOLLOWS: Normal [facility] Comment on above: Performed By: #### D RUGRPD #### [facility] [address] [place] [address] Dr. Daya Simms mAMP Negative Normal NEGATIVE [facility] Comment on above: Performed By: #### D RUGRPD #### [facility] [address] [place] [address] Dr. Daya Simms MTD Negative Normal NEGATIVE [facility] Comment on above: Performed By: #### D RUGRPD #### [facility] [address] [place] [address] Dr. Daya Simms OPI Negative Normal NEGATIVE [facility] Comment on above: Performed By: #### D RUGRPD #### [facility] [address] [place] [address] Dr. Daya Simms OXY Negative Normal NEGATIVE [facility] Comment on above: Performed By: #### D RUGRPD #### [facility] [address] [place] [address] Dr. Daya Simms PCP Negative Normal NEGATIVE [facility] Comment on above: Performed By: #### D RUGRPD #### [facility] [address] [place] [address] Dr. Daya Simms PPX Negative Normal NEGATIVE [facility] Comment on above: Performed By: #### D RUGRPD #### [facility] [address] [place] [address] Dr. Daya Simms TCA Negative Normal NEGATIVE [facility] Comment on above: Performed By: #### D RUGRPD #### [facility] [address] [place] [address] Dr. Daya Simms THC Negative Normal NEGATIVE [facility] Comment on above: Performed By: #### D RUGRPD #### [facility] [address] [place] [address] Dr. Daya Simms TYPE AND SCREENon 12-22-2022 TYPE AND SCREEN Negative Normal [facility] Comment on above: Performed By: #### T NS #### [facility] [address] [place] [address] Dr. Daya Simms UA (CLEAN/CATCH) ANALYTIC MANAGER/MICRO I F IND.on 12-22-2022 Bilirubin Ql (U) Negative Normal NEGATIVE [facility] Comment on above: Performed By: #### C BC #### [facility] [address] [place] [address] Dr. Daya Simms Clarity (U) CLEAR Normal CLEAR [facility] Comment on above: Performed By: #### C BC #### [facility] [address] [place] [address] Dr. Daya Simms Color (U) LT. YELLOW Normal YELLOW [facility] Comment on above: Performed By: #### C BC #### [facility] [address] [place] [address] Dr. Daya Simms Glucose Ql (U) Negative Normal NEGATIVE [facility] Comment on above: Performed By: #### C BC #### [facility] [address] [place] [address] Dr. Daya Simms Hemoglobin Ql (U) MODERATE Abnormal NEGATIVE [facility] Comment on above: Performed By: #### C BC #### [facility] [address] [place] [address] Dr. Daya Simms Ketones Ql (U) Negative Normal NEGATIVE [facility] Comment on above: Performed By: #### C BC #### [facility] [address] [place] [address] Dr. Daya Simms LEUKOCYTES MODERATE Abnormal NEGATIVE [facility] Comment on above: Performed By: #### C BC #### [facility] [address] [place] [address] Dr. Daya Simms Nitrite Ql (U) Negative Normal NEGATIVE [facility] Comment on above: Performed By: #### C BC #### [facility] [address] [place] [address] Dr. Daya Simms pH (U) 7.0 [pH] Normal 5-9 [facility] Comment on above: Performed By: #### C BC #### [facility] [address] [place] [address] Dr. Daya Simms SPEC GRAVITY <=1.005 Abnormal 1.005-<=1.025 [facility] Comment on above: Performed By: #### C BC #### [facility] [address] [place] [address] Dr. Daya Simms UA PROTEIN Negative Normal NEGATIVE/ TRACE [facility] Comment on above: Performed By: #### C BC #### [facility] [address] [place] [address] Dr. Daya Simms UR MICRO IND INDICATED Normal [facility] Comment on above: Performed By: #### C BC #### [facility] [address] [place] [address] Dr. Daya Simms Urobilinogen Qn (U) 0.2 {Marily'U}/dL Normal 0.2 - 1. 0 [facility] Comment on above: Performed By: #### C BC #### [facility] [address] [place] [address] Dr. Daya Simms URINE MICROSCOPIC ONLYon BACTERIA SMALL Abnormal NONE SEEN [facility] Comment on above: Performed By: #### C BC #### [facility] [address] [place] [address] Dr. Daya Simms Bacteria identified Cx Nom (U) INDICATED Normal [facility] Comment on above: Performed By: #### C BC #### [facility] [address] [place] [address] Dr. Daya Simms CAST NONE SEEN Normal NONE SEEN [facility] Comment on above: Performed By: #### C BC #### [facility] [address] [place] [address] Dr. Daya Simms Crystals LM Nom (Urine sed) NONE SEEN Normal NONE SEEN [facility] Comment on above: Performed By: #### C BC #### [facility] [address] [place] [address] Dr. Daya Simms Epithelial cells LM Ql (Urine sed) MODERATE Abnormal NONE SEEN /RARE [facility] Comment on above: Performed By: #### C BC #### [facility] [address] [place] [address] Dr. Daya Simms MUCOUS NONE SEEN Normal NONE SEEN [facility] Comment on above: Performed By: #### C BC #### [facility] [address] [place] [address] Dr. Daya Simms RBC 2-5 Abnormal 0-2 [facility] Comment on above: Performed By: #### C BC #### [facility] [address] [place] [address] Dr. Daya Simms WBC 5-10 Abnormal NONE SEEN [facility] Comment on above: Performed By: #### C BC #### [facility] [address] [place] [address] Dr. Daya Simms GROUP B STREP CULTUREon 11-26 S. agalactiae Ag Ql (Unsp spec) Culture Observations: NEGATIVE FOR GROUP B STREPTOCOCCUS. Normal [facility] Comment on above: Performed By: #### C BC #### [facility] [address] [place] [address] Dr. Daya Simms Coding Summary.on 11-28-2022 Coding Summary. CD:[id number] Gh0bWw+PGhlYWQ+PE1FV AAwF05uyLFuaN6YR1qTW R4QRGDCYTAVIX5WBZ7ic HD4QOnbN9WchwSo WepnwZRkTG75EMi7UHJ8 dEpcIYfnxJ3kbLKlE5q1 DbFbFW16tT88CHexEOJl ZyB2BgQjgjosbPHh Q4ocYnVjhTOgEyv+PHRh YmxlIHdpZHRoPScxMDAl GnFbuImeQL0aSa5aUMKj LWNvbGxhcHNlOiBj j1pxZHSmNMxtOW6ovOpp U1QyyCI7PYRmt5u7Tp53 dHI+OMFmDUK0kBycLVxh y592MuEky3ckUES3 vDDrPVunNKN2D16pj4S4 WXIySBKdQSV0hKQ1bJ9n nYlkmnocP2RqnEKbHhB5 WBF3tWSveN4blOin caenwW6aQod+S85EED3C OGJVMV3MYej3C1PcUkkj dHI+MX11EKYbVB11dNJg dBIpv3wxaCs5ApAp MREoFXL1iVqjQIigk2Mo AMObP05xcRZqr1D3GOKm mPlasDTtKhJuqXC4fH3p NYnmdkbwz7zqupjv Hvsgp8ioxw08aM50R58z DPndQMBoXAY2TYXmXPHr fKwrhi8bsT9lKt5+IDxj c1wec2ygwIj4FgTd NCKomyVifKkbFOB9y4Vf Br26V7LxtGukg6XiYov8 tq82kPNjp5D1mJL3VPxn OATdhO0cSQwcHvL7 ZKMeRjQihX08mCCdPQmn Zi1bqCeveNsyEK3eJGUu tilnEKYcfC8mKJUuqXJs aFttNA4gBGDzeivp e711FzQdOIV1ZMCygTIq N9LrzP5pZmAsZNAqFJRx G7QeeCRtCDvhZ517HNvs UxF6XPFvteWhQ3Wv VJRxlFryPtP9d4A0Nx1R o0StzsabKVL4RRviJGWv DrQeWuCkBqX7J8LoYnp0 NCZdgRvfYL2hW8Jv ENYqmjhfpkjxnUS3IAQu YYZepD70aMRcXAovHg7h c0S9f325JNGnXESrrS69 Xg1jlJnvJZFdjBMC oB2nnjezf9zpdeytMrTx BLIqOGn9NHm4ESTggRye OrMdOVK5QxI7QBT2fSOd xD5dxEnboqukmP4a Oyc+U93pbE2hIQH9KMY9 igreVTYcgkVuQN66TB28 Z5OrQtugrVCpzSB+PGRp smOwoJblQV8bCoTl n5ijo6HaEKyzM8IyZPTo JWbtYen9VLYmKLU4tDU7 qO6oGDJiAHvmm2Q1vFW3 S5MfzkOjqc0cp2vq VMUeROrnT98qnWThq7X0 UHHmhKU3STNokQbzNpFn xS67Poe+ICWvhVbgh1Dj Dbyiw8grw7iglUb9 IjMwJSIgdmFsaWduPSJ0 l8CmCe25W14sXHdsTLHr RBCwQSQrUGYkaXivvq5s lQ1fFn9+PGNvbCB3 fLE2aH7oNYCeIpE3EXni I052EkRofXEmCghzb4sr m7prnTl7WbOlILHypnZs zGjrFZW9u4AeKt07 K20vKNjgIUKqPEPpKTGa RGXayZetbz0mjA2dTy4+ UK9bc0woik85kO98cWE+ DSQlJTZ0uCrcNWay ESJpvO7iDEcfGoH6CXZe LhDssG25eCRnJNykWa2o zEyzgCehKK2wYPHnbpgu d875VsQau7vkUQNj lLCjMCuyQVL9D76aj3P8 XLBsXZKvVRP5lLM7lD5n bGlnbjogbGVmdDsgdmVy iNcxOUyhUBlxS044 IHRvcDsnPlBhdGllbnQg EtIvTMh2G7WcVgk7RCNy mIptRC9ohYTfXLfkEx5a cAwneEkqGG4zFFTa ecjqa948ZqEvv2ykGBBf kANbUWluUJS3V25cu9Q6 FTBmSFTbTSW2dCX8zX1j bGlnbjogbGVmdDsg aoQisQjuVNbeXTqqO107 IHRvcDsnPkJpcnRoIERh eXQ5VU15KK52cYKcn0N7 fIT8U4DoGOEwffjy dzzwmUB5ELWqXVRqnY41 Pp9kiPaaWi6xZKTpDXF2 ZHIlqCVjN1JxbW1uVvSs GTGvJMUpR9ZqjASk DXsnN502NZzyOeW9VTVj rgRfV8OeGMMklFznRlP1 f3D6Ui6HS7V7IT50TB27 eLQgq8P2iSX3B1Ng ZHFmnumfkxmnfMT9YJKj KSEnrF51Go2miGgtKa3q TFMuNVR4JLGbdMJsI5Gh pN5nTsEiNAVkFKOy F1AwmNUzMSsvO466VCjp LuK7RRYwlqQrQ8QsFRFr mRpsGsI3c2T3Gi6RGLc2 MJ52JO92vXFcn7L7 wGW2D9MiXKQylkoxphhz nYG0EOIoTWIobZ86Nl1z iNikYd8zMNHaLTK0SNDd zALkV5KgsL7cReOa XSLsGAUyL2KwpESpHAtl K154XQtqFlP5WRQrwtEy Z0VsILCzqCsmYbX0u6Q5 Mv5XQYYfWL08UIM2 rIY8IM35VA22F8LuRdme dGFibGU+PHRhYmxlIHdp ZHRoPScxMDAlJyBzdHls YK4lYv6eJUWlLAJv ePivkJVjHvRyy0xvMFVp YVzdQA2dsLevY0NkpOH5 EGPrw5l0Cc01M91xI9Fr dXA+TISqnAM2kHZ1 iN5lPtXpAiY4RXkkP429 YrBcxTMgJfnva1ono8zn vRf1AzY3ZFVvpzYsuAgb DXB8r0ItAg07Z99w IHdpZHRoPSIxNSUiIHZh bEuofy1hjV3dZk5+PGNv dLW1uAD4fU3mLtReCcY3 QSruQ084EcTyyQIy Ghvtn4gxe3vuzDz8NlSd KUVwclKwvWnbXPP7r9It Ew20I8VxsYhcf7DvAji8 hh17eRSlm9X2wCU5 K4HjYFXprlxxsUAiyIuw DN2cZOTivdtdJPElgA2i LZFjZ5k1XvEsDhR4HCfc B9LpfhJ9VAJktWBa XUorRWK2Q37md9S0MLWy XVLbIDY8oVI3cN2hoSuh bjogbGVmdDsgdmVydGlj FLwxTYhhS150LJSy iCtxVAJvuA2zNKCqrSGs ePxuNT0qZZBsbtygReIO P55ZTCutT1UULAYOAU4Z BDA1I1NvVbd8BYHi hLxiLK2acQQhVSqyRd1q qTzyqBtuTR3aRRHtmgnt JCRzpW7yXUTysUUsaWas UN9xSAIzlyykj093 TxLeHST3YROlrGAtP4Oy vP7xVyNrWVWoAZEkM4El qXEzWWazY198LUcnJjE5 SCItetLfC5DnFYUd aDezXwL2c8S6Lg0nAn8a QR4aDYm9YH91FF80aETu c9D4kDZ9T4HkYGPlhpej xavzdUQ2MUKdEDYg fE70lNMyTNxyOv0mj7W7 f270BMMpTMKyaP06No3d wUfmSCMmeOEShB0hmqeg c8hhcljzZqCmZFRe SLc7JAm7HESmsLasDwSo CIM3InP8FXD8kNWlaW7n tRpsdibuzM0jEvd+MzUg ZEPqovU7G7KfMxh7 QAYohFxlUH4vuEEqSJsi Pf6gaBhbeZrcOM3vHOYx iiquBSDerN6sUCRpiWLw jTqhZG1pPXUugerl k085JyEgIMZ0IBKfdSEn Q7ClwQ9iHtOsDXOtPLXf D8CvkRGwBVsgB739MZxd OxB4PZUrhzRhO6Sq FFKwbRkeSwT7i0U9Mr7R EB5xtKF1M3UcVyg8KZJb eZahHP4hhMPwKIalJv6x uFjbpTguLE2eTIEv bjrvARHteO6aDDVnmFQu oGjeLX9cSNBnzqjui461 YtOiMLU2HCSnfINvG0Vz tS4qZkIaYXRdHBSg U0TeqRSfBNmhO633XRgw XiD6KXPoduQhT7AjEPHi rWrtTqM8f7O6Zl1DdLFj D8HvF2h8Y0MtQggh dHI+FT74LHWmHX64fSQn gHYre7slkYr3UnCsSWOm XRZ4aXqcZOuzc7KgZNCm G51tnVPnx6T4XNHh aKgeoUWeYpErfOW0gL9l OTsstwcdf7mygvdnOiet a3cfzp55bS39Q34dTQem ZHRoPSIzMCUiIHZh iGiggn4otC3wOd2+PGNv gWG9xNV3eH3mVjLyMcS5 LTfxZ418YaAqlHQpImbc j8fjs8hzuLc1RkAa WLIpavIpxSdoMBX7g6Yv La26E73eIQhvTPJgXBHr TGMuDEEouRgnbj0kjL4n Ii8+WE9gv8jrqs43 tG57dDL+CSNrMTB0xQee SRyuRESykW6wFOqiPaX0 SJOyRjOtnH59iDYuGGcw Mf6dtBytiWpjTT4h KYKvlahmo221SoXog8en PWNalKEqUHfcUDA9X03y n1J2AWSjENXySWR2zHZ3 tY4ssIsetjfzpDGq dDsgdmVydGljYWwtYWxp M158NQOfqWgcXgOhtHNx T8ihskVRJJ2lUyljaHV+ FRIkOVQ3iEhgLKxf UERprZ4wQURsS0k9SiJz MfB2QKasX2RjezZ3OOQi lXRtQLEbjVLXqI9ppgby y9pfzikmWnFlIRIq ROy6JKa1RYAdkImmQuLm VRE7NpN9CEJ5fYTlfY5u iPenyjskmL9dYlm+RklO OjwvdGQ+PHRkIHN0 dTzxHLhjDKJdiQ9aYQIb G6e0QqUyEfF2VMqsU6Pa ciK6XOWupRXfLAUfqJJI oT4usujfp0npfkld SrXpEZEkGJv3TIg1IIRd wUayEzMuHWN1VrN5GYJ0 yVYktA5xjLvqsatfdA9l Oyc+TVJOOjwvdGQ+ IARzIGV5oDgnBZdiDOTj nH3nFKUrI3k2LyLuReU2 GVypF5ZswuI4WOSwdMOy JGRxwFLZtI7ejfyv x3vonrntEjZdGJBzMOf2 NZg6RMCoePrjVxZoNPE5 JbB6QZD0mBKsuA8wnBth ryvcbS9vLxz+UGF5 WCW2MM90JT10B1RjBvii dGFibGU+PHRhYmxlIHdp ZHRoPScxMDAlJyBzdHls IV2gLc4eNZXeYQIu bGxh (more content not included)... Normal [facility] Auto Diffon 11-23-2022 Basophils/100 WBC (Bld) 1.2 % Normal 0.0-2.0 [facility] Comment on above: Order Comment: Order Added by Discern Expert. Performed By: #### 2 957684, 3901073, 53237782, 9895792, 5234611, 2632144 ####[facility] [address] [place] [address] Basophils/Leukocytes Auto (Bld) [Pure # fraction] 0.1 E9/L Normal 0.0-0.2 [facility] Comment on above: Order Comment: Order Added by Discern Expert. Performed By: #### 2 996784, 9679918, 79372712, 3885165, 6682590, 6927813 ####[address] [address] Eosinophils/100 WBC (Bld) 1.9 % Normal 0.0-8.0 [facility] Comment on above: Order Comment: Order Added by Frida Expert. Performed By: #### 2 848719, 5281065, 11690925, 9917983, 3910184, 7527642 ####[facility] [address] [place] [address] Eosinophils/Leukocytes Auto (Bld) [Pure # fraction] 0.2 E9/L Normal 0.0-0.5 [facility] Comment on above: Order Comment: Order Added by Discern Expert. Performed By: #### 2 664777, 9732052, 15301429, 9611912, 0671964, 0776622 ####[address] [address] Lymphocytes/100 WBC (Bld) 24.6 % Normal 14.0-50.0 [facility] Comment on above: Order Comment: Order Added by Discern Expert. Performed By: #### 2 054286, 0156989, 47148134, 5430798, 0892595, 5373083 ####[address] [address] Lymphocytes/Leukocytes Auto (Bld) [Pure # fraction] 2.4 E9/L Normal 1.0-4.0 [facility] Comment on above: Order Comment: Order Added by Discern Expert. Performed By: #### 2 462192, 4841986, 62562518, 9716782, 9044838, 7322782 ####[address] [address] Monocytes/100 WBC (Bld) 6.4 % Normal 4.0-14.0 [facility] Comment on above: Order Comment: Order Added by Discern Expert. Performed By: #### 2 073858, 6837431, 63979377, 1279253, 0884079, 3892732 ####[address] [address] Monocytes/Leukocytes Auto (Bld) [Pure # fraction] 0.6 E9/L Normal 0.2-1.0 [facility] Comment on above: Order Comment: Order Added by Discern Expert. Performed By: #### 2 273508, 0463557, 85210705, 2616913, 4708714, 1613152 ####[address] [address] Neutrophils/100 WBC (Bld) 65.9 % Normal 36.0-75.0 [facility] Comment on above: Order Comment: Order Added by Discern Expert. Performed By: #### 2 719956, 6771175, 87874422, 5931318, 7307135, 1257093 ####[place] [place] [address] Neutrophils/Leukocytes Auto (Bld) [Pure # fraction] 6.5 E9/L Normal 2.0-7.5 [facility] Comment on above: Order Comment: Order Added by Discern Expert. Performed By: #### 2 204958, 3707088, 58036447, 9776814, 7322257, 7844970 ####[address] [address] CBC w/ Auto Diffon Erythrocyte distribution width (RBC) [Ratio] 13.2 % Normal 10.9-14.2 [facility] Comment on above: Performed By: #### 2 255342, 3361144, 73649181, 4396179, 6107018, 0626017 ####[address] [place] [address] Hematocrit (Bld) [Volume fraction] 36.2 % Normal 34.0-46.0 [facility] Comment on above: Performed By: #### 2 393689, 2014011, 15897328, 3078696, 5202305, 6839297 ####[address] [place] [id number] Hemoglobin (Bld) [Mass/Vol] 12.1 g/dL Normal 12.0-16.0 [facility] Comment on above: Performed By: #### 2 645873, 4871189, 99638463, 4103676, 9237365, 0753397 ####[address] [address] MCH (RBC) [Entitic mass] 29.7 pg Normal 27.0-34.0 [facility] Comment on above: Performed By: #### 2 315731, 3477821, 45850547, 3754898, 5583435, 0149803 ####[place] [address] MCHC (RBC) [Mass/Vol] 33.5 g/dL Normal 31.4-36.0 [facility] Comment on above: Performed By: #### 2 705416, 7140863, 91373281, 7688561, 9264674, 4311897 ####[address] [place] [address] MCV (RBC) [Entitic vol] 88.8 fL Normal 80.0-100.0 [facility] Comment on above: Performed By: #### 2 719583, 8240975, 43882846, 5494317, 2368932, 7173740 ####[facility] [address] [place] [address] Platelet mean volume (Bld) [Entitic vol] 7.6 fL Normal 6.4-10.8 [facility] Comment on above: Performed By: #### 2 512086, 2734621, 15544646, 5505035, 5102545, 0701427 ####[facility] [address] [place] [address] Platelets (Bld) [#/Vol] 298.0 E9/L Normal 150.0-500.0 [facility] Comment on above: Performed By: #### 2 189541, 2535596, 71146299, 0084092, 0008492, 8373972 ####[address] [place] [address] RBC (Bld) [#/Vol] 4.1 E12/L Low 4.3-5.9 [facility] Comment on above: Performed By: #### 2 654318, 1074620, 56628758, 1832188, 8087101, 3982788 ####[address] [place] [address] WBC corrected for nucl RBC Auto (Bld) [#/Vol] 9.8 E9/L Normal 4.0-11.0 [facility] Comment on above: Performed By: #### 2 619964, 8081817, 57736771, 4121814, 8508471, 1309032 ####[facility] [address] [place] [address] CHEMISTRYOrdered By: SYSTEM SYSTEM on 11-23-2022 Albumin [Mass/Vol] 3.1 g/dL Low 3.3 - 5.0 gm/dL [facility] Albumin/Globulin [Mass ratio] 0.9 {ratio} Low 1.1 - 2.2 [facility] ALP [Catalytic activity/Vol] 116 [iU]/d High 21 - 98 Int._Unit/L [facility] ALT No additional P-5'-P [Catalytic activity/Vol] 15 [iU]/d Normal 6 - 46 Int._Unit/L [facility] Anion gap [Moles/Vol] 9 mmol/L Normal 6 - 16 mEq/L [facility] AST [Catalytic activity/Vol] 21 [iU]/d Normal 5 - 43 Int._Unit/L [facility] Bilirubin [Mass/Vol] 0.3 mg/dL Normal 0.0 - 1 .1 mg/dL [facility] Calcium [Mass/Vol] 8.6 mg/dL Low 8.9 - 11. 1 mg/dL [facility] Chloride [Moles/Vol] 106 mmol/L Normal 101 - 1 11 mmol/L [facility] CO2 [Moles/Vol] 21 mmol/L Normal 21 - 31 mmol/L [facility] Creatinine [Mass/Vol] 0.5 mg/dL Normal 0.5 - 1.3 mg/dL [facility] GFR/1.73 sq M.predicted among blacks MDRD (S/P/Bld) [Vol rate/Area] mL/min/1.73 m2 Normal >=59mL/min/1. 73 m2 [facility] [place] S GFR/1.73 sq M.predicted among non-blacks MDRD (S/P/Bld) [Vol rate/Area] mL/min/1.73 m2 Normal >=59mL/min/1. 73 m2 [facility] [place] S Globulin (S) [Mass/Vol] 3.6 g/dL Normal 1.4 - 4.0 gm/dL [facility] Glucose [Mass/Vol] 95 mg/dL Normal 55 - 199 mg/dL [facility] Lipase [Catalytic activity/Vol] 41 U/L Normal 13 - 58 unit/L [facility] Potassium [Moles/Vol] 3.8 mmol/L Normal 3.5 - 5.3 mmol/L [facility] Protein [Mass/Vol] 6.7 g/dL Normal 6.0 - 7.8 gm/dL [facility] Sodium [Moles/Vol] 132 mmol/L Low 135 - 145 mmol/L [facility] Troponin I.cardiac [Mass/Vol] 4.30 pg/mL Low 10.10 - 27.10 pg/mL [facility] Urea nitrogen [Mass/Vol] 6 mg/dL Normal 5 - 21 mg/dL [facility] [place] [facility] Urea nitrogen/Creatinine [Mass ratio] 12 mg/mg Normal 10 - 20 [facility] [place] [facility] CMPon 11-23-2022 Albumin [Mass/Vol] 3.1 g/dL Low 3.3-5.0 [facility] Comment on above: Performed By: #### 2 420230, 8222239, 71795707, 7150790, 6538011, 7560974 ####[facility] [address] [place] [address] Albumin/Globulin (S) [Mass conc ratio] 0.9 Low 1.1-2.2 [facility] Comment on above: Performed By: #### 2 459313, 1500685, 37684183, 6316507, 7859487, 6208120 ####[facility] [address] [place] [address] ALP [Catalytic activity/Vol] 116 Int._Unit/L High 21-98 [facility] Comment on above: Performed By: #### 2 260879, 7266194, 55389909, 3625093, 6409526, 9071930 ####[facility] [address] [place] [address] ALT No additional P-5'-P [Catalytic activity/Vol] 15 Int._Unit/L Normal 6-46 [facility] Comment on above: Performed By: #### 2 523190, 3219739, 01599785, 9527017, 8874957, 6824122 ####[facility] [address] [place] [address] AST [Catalytic activity/Vol] 21 Int._Unit/L Normal 5-43 [facility] Comment on above: Performed By: #### 2 880837, 4217188, 73438669, 4818072, 6739745, 1162262 ####[facility] [address] [place] [address] Bilirubin [Mass/Vol] 0.3 mg/dL Normal 0.0-1.1 [facility] Comment on above: Performed By: #### 2 569711, 8677649, 50221155, 6003736, 8501290, 0668747 ####[facility] [address] [place] [address] Creatinine [Mass/Vol] 0.5 mg/dL Normal 0.5-1.3 [facility] Comment on above: Performed By: #### 2 411609, 3141599, 58056959, 1800697, 6788130, 8881317 ####[facility] [address] [place] [address] Globulin (S) [Mass/Vol] 3.6 g/dL Normal 1.4-4.0 [facility] Comment on above: Performed By: #### 2 704045, 2240739, 34397777, 4303866, 2858214, 8213203 ####[facility] [address] [place] [address] Protein [Mass/Vol] 6.7 g/dL Normal 6.0-7.8 [facility] Comment on above: Performed By: #### 2 901912, 9557192, 65336483, 7838992, 6409484, 6919958 ####[facility] [address] [place] [address] Urea nitrogen [Mass/Vol] 6 mg/dL Normal 5-21 [facility] Comment on above: Performed By: #### 2 129962, 6144385, 98100910, 6518969, 4024044, 4136950 ####[facility] [address] [place] [address] Urea nitrogen/Creatinine [Mass ratio] 12 No Units Normal 10-20 [facility] Comment on above: Performed By: #### 2 422348, 6466687, 89450128, 7252987, 8347675, 4433738 ####[facility] [address] [place] [address] Anion gap [Moles/Vol] 9 mmol/L Normal 6-16 [facility] Comment on above: Performed By: #### 2 172626, 6312796, 12882442, 9058859, 9791427, 5295568 ####[facility] [address] [place] [address] Calcium [Mass/Vol] 8.6 mg/dL Low 8.9-11.1 [facility] Comment on above: Performed By: #### 2 163357, 0159431, 17295999, 5251317, 6813916, 4549256 ####[facility] [address] [place] [address] Chloride [Moles/Vol] 106 mmol/L Normal 101-111 [facility] Comment on above: Performed By: #### 2 592593, 6779932, 93599644, 6673016, 5596773, 1464430 ####[facility] [address] [place] [address] CO2 [Moles/Vol] 21 mmol/L Normal 21-31 [facility] Comment on above: Performed By: #### 2 587902, 1842797, [id number], [id number], [id number], [id number] ####[facility] [address] [place] [address] Glucose [Mass/Vol] 95 mg/dL Normal 55-199 [facility] Comment on above: Result Comment: If t his glucose result represents a fasting glucose, interpretation should refer to the following reference range: 55-99 mg/dL Performed By: #### 2 [id number], [id number], [id number], 4072110, 8935324, [id number] ####[facility] [address] [place] [address] Potassium [Moles/Vol] 3.8 mmol/L Normal 3.5-5.3 [facility] Comment on above: Performed By: #### 2 [id number], [id number], [id number], 9482769, 9281503, 6464729 ####[facility] [address] [place] [address] Sodium [Moles/Vol] 132 mmol/L Low 135-145 [facility] Comment on above: Performed By: #### 2 [id number], [id number], [id number], [id number], 3407966, [id number] ####[facility] [address] [place] [id number] Consent for Treatmenton 10-27 Consent for Treatment [id number] #1.00CD:127 Normal [facility] Discharge Instructionson Discharge Instructions [id number] 4#1.00CD:127 Normal [facility] ED Clinical Summaryon 2021 ED Clinical Summary [address] [address] ED Clinical Summary Person Information Name: SCOTT GALVAN Cookie/[facility] Age: 37 Years : 1985 Sex: Female Language: Czech PCP: Pedrito SILVESTRE MD Marital Status: Visit Id: Visit Reason: Cough; Sinus Pain/Congestion; Rib/trunk pain-swelling; SOB Speciality: Acuity: 3 Enc Type: Emergency Med Service: Emergency Arrival: 11/23/2022 01:53:05 Discharge: 11/23/2022 04:12:05 LOS: 000 02:19 Checkin: 11/23/2022 01:53:05 Checkout: 11/23/2022 04:12:05 Dispo Type: Home (Routine DC) EVENTS: Event Name Event Status Request Date/Time Start Date/Time Complete Date/Time Arrive Complete 11/23/2022 01:53:05 11/23/2022 01:53:05 11/23/2022 01:53:05 Document Home Meds Request 11/23/2022 01:53:05 Triage Complete 11/23/2022 01:53:05 11/23/2022 01:58:02 11/23/2022 01:58:02 Bed Assign Complete 11/23/2022 02:02:13 11/23/2022 02:02:13 11/23/2022 02:02:13 Dr Exam Complete 11/23/2022 02:02:13 11/23/2022 02:04:14 11/23/2022 02:04:14 RN Exam Complete 11/23/2022 02:02:13 11/23/2022 02:13:01 11/23/2022 02:13:01 Registration Complete 11/23/2022 02:04:14 11/23/2022 02:09:49 11/23/2022 02:09:49 Reg Complete Request 11/23/2022 02:09:49 Reg Bed Request Complete 11/23/2022 02:09:49 11/23/2022 02:09:49 11/23/2022 02:09:49 Meds Admin Complete 11/23/2022 02:27:14 11/23/2022 03:03:17 X-Ray Complete 11/23/2022 02:27:14 11/23/2022 03:07:24 11/23/2022 03:28:43 Pending Labs Complete 11/23/2022 02:27:14 11/23/2022 03:15:46 Lab Complete 11/23/2022 02:27:14 11/23/2022 03:15:46 EKG Complete 11/23/2022 02:27:14 11/23/2022 02:58:21 Pending Labs Complete 11/23/2022 02:49:16 11/23/2022 02:49:16 11/23/2022 03:08:12 Lab Complete 11/23/2022 02:49:16 11/23/2022 02:49:16 11/23/2022 03:08:12 Meds Admin Complete 11/23/2022 02:49:59 11/23/2022 03:03:18 Pending Labs Complete 11/23/2022 03:00:41 11/23/2022 03:00:41 11/23/2022 03:00:50 Lab Complete 11/23/2022 03:00:41 11/23/2022 03:00:41 11/23/2022 03:00:50 Wet Read Request 11/23/2022 03:28:43 Meds Admin Complete 11/23/2022 03:52:34 11/23/2022 04:07:14 Discharge Complete 11/23/2022 03:55:16 11/23/2022 04:12:30 11/23/2022 04:12:30 Transfer Complete 11/23/2022 04:12:30 11/23/2022 04:12:30 11/23/2022 04:12:30 ADDRESS: [address] [place] [id number] PHYS DOC NOTES: MEDICAL INFORMATION: Prescriptions Given: New Medications [id number], [address], [place] [id number], [phone] lidocaine topical (Lidoderm 5% Patch) 1 Patches Topical every day. apply 12 hours on and 12 hours off daily. Refills: 0. predniSONE (predniSONE 20 mg Tab) 2 Tablets By Mouth every day for 4 Days. Refills: 0. PATIENT EDUCATION INFORMATION: Instructions: Nonspecific Chest Pain, Adult; Cough, Adult Follow up: With: Address: When: Anjum MADISON [facility], [address] [place] [address] [place] [address] Business (1) In 3 days 11/26/2022 Comments: Call Dr. Madison to discuss your ED visit. Take Tylenol extra strength scheduled for the next 5 days. Use Lidoderm patches. Take steroid as prescribed. With: Address: When: Eduardogalina SAID [address] [place] [address], [address], [facility] [address] [place] [address] Business (1) In 3 days 11/26/2022 Comments: Call the office of your primary care doctor to arrange for follow-up within the above-stated timeframe. Follow-up with your primary care doctor about this ED visit. You should review your labs, imaging, and diagnoses from this ED visit with your primary care physician. If you were prescribed medications you should discuss possible side-effects and drug interactions with your pharmacist. Call 911 or go to the nearest Emergency Department if you develop any new or worsening symptoms. Seek immediate medical attention if you develop: worsening chest pain, new chest pain, nausea, vomiting, weakness, numbness, tingling, excessive sweating, shortness of breath, difficulty breathing, loss of motion in your arms or legs, or any new or worsening symptoms. DIAGNOSIS: Rib pain Normal [facility] ED Note-Physicianon 11-23-20 ED Note-Physician Basic Information Time Seen: Vinod Arora DOStacey 11/23/2022 02:04 Chief Complaint cough for several days. pain to right rib area. states hard to take deep breath. runny nose. denies fever History of Present Illness 37-year-old female to the emergency department with chief complaint of right-sided rib pain that is been ongoing for the last 3 days. She reports that she has had a cough, rhinorrhea, malaise of been ongoing for the last 7 days. She is saw her OB and was prescribed azithromycin. Patient reports that she does not like to take medication and has not taken any Tylenol for the pain. Pain worsened overnight tonight. She is a sharp pain located in her right ribs just below the right breast that is worse with deep inspiration, movement, palpation of the area. No other aggravating relieving factors. It is painful to take deep breath but not short of breath. Review of Systems A 10 point review of systems is negative except as noted above. Medical and Surgical History: Reviewed and noted Social history: Lives at home Tobacco: Denies Physical Exam Vitals & Measurements T: 36.4 ?C(Tympanic) HR: 91(Peripheral) RR: 20 BP: 122/70 SpO2: 99% HT: 170 cm WT: 70.3 kg BMI: 24.33 VITALS: I have reviewed the triage vital signs. GENERAL: Well developed, well appearing adult in no acute distress. NEURO: Alert and oriented. Moves all extremities. Face is symmetric and expressive. EYES: PERRL. No scleral icterus or conjunctival injection. No discharge. HENT: Normocephalic, atraumatic. Hearing is grossly intact. Nares grossly patent and without discharge. Mucous membranes moist. NECK: No JVD. Patient moves neck without restriction. CARDIO: Rhythm regular. Normal rate. No murmur, rub, or gallop. Pulses equal bilaterally in the upper and lower extremity. No lower extremity edema. PULM: Lungs clear to auscultation in all barcenas. No wheezes, rales, or rhonchi. No conversational dyspnea. No splinting, stridor, or accessory muscle use. Tenderness to palpation of the right lateral ribs. GI/: Abdomen is soft and non-tender. Normoactive bowel sounds. Gravid uterus. EXTREMITIES: Symmetric muscle bulk. No joint swelling. No clubbing, cyanosis, or deformity. SKIN: Warm and dry. Normal turgor. No rash or lesions appreciated. PSYCH: Mood, affect, and interaction is appropriate to the setting. Procedure Heart Score for Major Cardiac Event History: Example factors for history - pattern of chest pain, onset, duration, relation with exercise, stress or cold, localization, concominant symptoms. reaction to sublingual nitrates, [] Highly suspicious +2 [] Moderately suspicious +1 [x] Slightly suspicious 0 EKG: [] Significant ST-Depression +2 [] Non specific repolarization disturbance +1 [x] Normal 0 Age: [] >= 65 +2 [] 45-65 + 1 [x] <45 0 Risk Factors: (HLD, HTN, DM, Cigarette Smoking, Pos Family Hx, Obesity) [] >3 risk factors or hx of atheroslerotic disease + 2 [] 1-2 risk factors + 1 [x] No risk factors known 0 Troponin: [] >= 3X normal + 2 [] 1-3X normal + 1 [x] <= Normal 0 [x] 0-3 Points 0.9 - 1.7% risk of major adverse cardiac event in 6 weeks [] 4-6 Points 12-16.6% risk of major adverse cardiac event in 6 weeks [] 7-10 Points 50-65% risk of major adverse cardiac event in 6 weeks [] 0-3 Points with 2 sets of negative cardiac markers <1% risk of major adverse cardiac event in 30 days. Medical Decision Making 37-year-old female accompanied by to the emergency department with chief complaint of right-sided rib pain in the setting of coughing and flulike symptoms. Vital stable, the patient is afebrile. She is well-appearing on exam. is very anxious about symptoms. Pain make it difficult for her to sleep causing visit tonight. She has not taken anything for pain prior to arrival. Risk and benefits of pain management were discussed with the patient. She is describing 8 out of 10 pain. Small dose of morphine was discussed to break the cycle of pain and she agrees. Lidoderm patch will also be applied. Discussed differential diagnosis and work-up with the patient and her . Decision was made to proceed with basic labs, troponin, chest x-ray with rib series. They agree with this plan. Overall her risk profile for venous thromboembolism is low. She is PERC negative. She is saturating well and has no tachycardia. I believe she has a very low pretest probability for pulmonary embolism, no need for further evaluation for this other than consideration of risk factors at this time. EKG is without evidence of ischemia. CBC without acute findings. Chemistry without significant abnormality. Her troponin is negative. Lipase and hepatic function is normal. Chest x-ray with rib series without acute findings. Patient reexamined. She co (more content not included)... Normal [facility] Comment on above: Result Comment: Elec tronically Signed By: Vinod Arora DO\.br\Date and Time Signed: 11/23/22 06:54 EST ED Patient Education Noteon 11-23-2022 ED Patient Education Note ENT Cough, Adult Coughing is a reflex that clears your throat and your airways (respiratory system). Coughing helps to heal and protect your lungs. It is normal to cough occasionally, but a cough that happens with other symptoms or lasts a long time may be a sign of a condition that needs treatment. An acute cough may only last 2?3 weeks, while a chronic cough may last 8 or more weeks. Coughing is commonly caused by: ? Infection of the respiratory systemby viruses or bacteria. ? Breathing in substances that irritate your lungs. ? Allergies. ? Asthma. ? Mucus that runs down the back of your throat (postnasal drip). ? Smoking. ? Acid backing up from the stomach into the esophagus (gastroesophageal reflux). ? Certain medicines. ? Chronic lung problems. ? Other medical conditions such as heart failure or a blood clot in the lung (pulmonary embolism). Follow these instructions at home: Medicines ? Take thvp-rwq-mjganhs and prescription medicines only as told by your health care provider. ? Talk with your health care provider before you take a cough suppressant medicine. Lifestyle ? Avoid cigarette smoke. Do not use any products that contain nicotine or tobacco, such as cigarettes, e-cigarettes, and chewing tobacco. If you need help quitting, ask your health care provider. ? Drink enough fluid to keep your urine pale yellow. ? Avoid caffeine. ? Do not drink alcohol if your health care provider tells you not to drink. General instructions ? Pay close attention to changes in your cough. Tell your health care provider about them. ? Always cover your mouth when you cough. ? Avoid things that make you cough, such as perfume, candles, cleaning products, or campfire or tobacco smoke. ? If the air is dry, use a cool mist vaporizer or humidifier in your bedroom or your home to help loosen secretions. ? If your cough is worse at night, try to sleep in a semi-upright position. ? Rest as needed. ? Keep all follow-up visits as told by your health care provider. This is important. Contact a health care provider if you: ? Have new symptoms. ? Cough up pus. ? Have a cough that does not get better after 2?3 weeks or gets worse. ? Cannot control your cough with cough suppressant medicines and you are losing sleep. ? Have pain that gets worse or pain that is not helped with medicine. ? Have a fever. ? Have unexplained weight loss. ? Have night sweats. Get help right away if: ? You cough up blood. ? You have difficulty breathing. ? Your heartbeat is very fast. These symptoms may represent a serious problem that is an emergency. Do not wait to see if the symptoms will go away. Get medical help right away. Call your local emergency services (911 in the [place] Do not drive yourself to the hospital. Summary ? Coughing is a reflex that clears your throat and your airways. It is normal to cough occasionally, but a cough that happens with other symptoms or lasts a long time may be a sign of a condition that needs treatment. ? Take toyo-nnr-lfczueb and prescription medicines only as told by your health care provider. ? Always cover your mouth when you cough. ? Contact a health care provider if you have new symptoms or a cough that does not get better after 2?3 weeks or gets worse. This information is not intended to replace advice given to you by your health care provider. Make sure you discuss any questions you have with your health care provider. Document Released: 05/10/2012 Document Revised: 12/01/2019 Document Reviewed: 12/01/2019 [employer] Patient Education ? 2019 [employer]. Pulmonary Medicine Nonspecific Chest Pain, Adult Chest pain can be caused by many different conditions. It can be caused by a condition that is life-threatening and requires treatment right away. It can also be caused by something that is not life-threatening. If you have chest pain, it can be hard to know the difference, so it is important to get help right away to make sure that you do not have a serious condition. Some life-threatening causes of chest pain include: ? Heart attack. ? A tear in the body's main blood vessel (aortic dissection). ? Inflammation around your heart (pericarditis). ? A problem in the lungs, such as a blood clot (pulmonary embolism) or a collapsed lung (pneumothorax). Some non life-threatening causes of chest pain include: ? Heartburn. ? Anxiety or stress. ? Damage to the bones, muscles, and cartilage that make up your chest wall. ? Pneumonia or bronchitis. ? Shingles infection (varicella-zoster virus). Chest pain can feel like: ? Pain or discomfort on the surface of your chest or deep in your chest. ? Crushing, pressure, aching, or squeezing pain. ? Burning or tingling. ? Dull or sharp pain that is worse when you move, cough, or take a deep breath. ? Pain or discomfort that is also felt in your back, neck, jaw, shoulder, (more content not included)... Normal [facility] ED Patient Summaryon 022 ED Patient Summary [address] [address] Patient Discharge Instructions Person Information Name: SCOTT GALVAN Age: 37 Years Arrival Date: 11/23/2022 01:53:05 Discharge Diagnosis: Rib pain Primary Care Physician: Pedrito SILVESTRE MD Provider Information Primary Provider: Vinod Arora DO Advanced Putty Mixer:None The exam and treatment you received in the Emergency Department were for an urgent problem and are not intended as complete care. It is important that you follow up with a doctor, nurse practitioner, or physician?s senior care assistant for ongoing care. If your symptoms become worse or you do not improve as expected and you are unable to reach your usual health care provider, you should return to the Emergency Department. We are available 24 hours a day. SCOTT GALVAN has been given the following list of patient education materials, prescriptions and follow-up instructions: Follow-up Instructions: With: Address: When: Anjum MADISON [facility], [address] [place] [address] Wilfrido [address]in [place] [id number] [facility] (1) In 3 days 11/26/2022 Comments: Call Dr. Madison to discuss your ED visit. Take Tylenol extra strength scheduled for the next 5 days. Use Lidoderm patches. Take steroid as prescribed. With: Address: When: Pedrito Vance [facility], [address], [address] [address] Business (1) In 3 days 11/26/2022 Comments: Call the office of your primary care doctor to arrange for follow-up within the above-stated timeframe. Follow-up with your primary care doctor about this ED visit. You should review your labs, imaging, and diagnoses from this ED visit with your primary care physician. If you were prescribed medications you should discuss possible side-effects and drug interactions with your pharmacist. Call 911 or go to the nearest Emergency Department if you develop any new or worsening symptoms. Seek immediate medical attention if you develop: worsening chest pain, new chest pain, nausea, vomiting, weakness, numbness, tingling, excessive sweating, shortness of breath, difficulty breathing, loss of motion in your arms or legs, or any new or worsening symptoms. In the event that this physician does not participate in your insurance network, please consult with your insurance company to find a nearby participating provider. Patient Education Materials: Nonspecific Chest Pain, Adult; Cough, Adult A MESSAGE TO ALL PATIENTS REGARDING OPIOIDS PRESCRIPTION OPIOIDS: WHAT YOU NEED TO KNOW Prescription opioids can be used to help relieve zspczgaa-ft-ptivix pain and are often prescribed following a surgery or injury, or for certain health conditions. These medications can be an important part of the treatment but also come with serious risks. It is important to work with your healthcare provider to make sure you are getting the safest, most effective care. WHAT ARE THE RISKS AND SIDE EFFECTS OF OPIOID USE? Prescription opioids carry serious risks of addiction and overdose, especially with prolonged use. An opioid overdose, often marked by slowed breathing, can cause sudden . The use of prescription opioids can have a number of side effects as well, even when taken as directed: ? Tolerance?meaning you might need to take more of the medication for the same pain relief ? Physical dependence?meaning you have symptoms of withdrawal when a medication is stopped ? Increased sensitivity to pain ? Constipation ? Nausea, vomiting, and dry mouth ? Sleepiness and dizziness ? Confusion ? Depression ? Low levels of testosterone that can result in lower sex drive, energy, and strength ? Itching and sweating RISKS ARE GREATER WITH: ? History of drug misuse, substance use disorder, or overdose ? Mental health conditions (such as depression or anxiety) ? Sleep apnea ? Older age (65 years and older) ? Avoid alcohol while taking prescription opioids. Also, unless specifically advised by your health care provider, medications to avoid include: ? Benzodiazepines (such as Xanax or Valium) ? Muscle relaxants (such as Soma or Flexeril) ? Hypnotics (such as Ambien or Lunesta) ? Other prescription opioids KNOW YOUR OPTIONS Talk to your health care provider about ways to manage your pain that don?t involve prescription opioids. Some of these options may actually work better and have fewer risks and side effects. Options may include: ? Pain relievers such as acetaminophen, ibuprofen, and naproxen ? Some medication that are also used for depression or seizures ? Physical therapy and exercise ? Cognitive behavioral therapy, a psychological, goal-directed approach, in which patients learn how to modify physical, behavioral, and emotional triggers of pain and stress. IF YOU ARE PRESCRIBED OPIOIDS FOR PAIN: ? Never take op (more content not included)... Normal [facility] HEMATOLOGYOrdered By: SYSTEM SYSTEM on 12-29-2022 Basophils/100 WBC (Bld) 1.2 % Normal 0.0 - 2.0 % [facility] Basophils/Leukocytes Auto (Bld) [Pure # fraction] 0.1 E9/L Normal 0.0 - 0.2 E9/L [facility] Eosinophils/100 WBC (Bld) 1.9 % Normal 0.0 - 8.0 % [facility] Eosinophils/Leukocytes Auto (Bld) [Pure # fraction] 0.2 E9/L Normal 0.0 - 0.5 E9/L [facility] Lymphocytes/100 WBC (Bld) 24.6 % Normal 14.0 - 50.0 % [facility] Lymphocytes/Leukocytes Auto (Bld) [Pure # fraction] 2.4 E9/L Normal 1.0 - 4.0 E9/L [facility] Monocytes/100 WBC (Bld) 6.4 % Normal 4.0 - 14.0 % [facility] Monocytes/Leukocytes Auto (Bld) [Pure # fraction] 0.6 E9/L Normal 0.2 - 1.0 E9/L [facility] Neutrophils/100 WBC (Bld) 65.9 % Normal 36.0 - 75.0 % [facility] Neutrophils/Leukocytes Auto (Bld) [Pure # fraction] 6.5 E9/L Normal 2.0 - 7.5 E9/L [facility] HEMATOLOGYOrdered By: Valeria Bob on 11-23-2022 Erythrocyte distribution width (RBC) [Ratio] 13.2 % Normal 10.9 - 14.2 % [facility] Hematocrit (Bld) [Volume fraction] 36.2 % Normal 34.0 - 46.0 % [facility] Hemoglobin (Bld) [Mass/Vol] 12.1 g/dL Normal 12.0 - 16.0 gm/dL [facility] MCH (RBC) [Entitic mass] 29.7 pg Normal 27.0 - 34.0 pg [facility] MCHC (RBC) [Mass/Vol] 33.5 g/dL Normal 31.4 - 36.0 gm/dL [facility] MCV (RBC) [Entitic vol] 88.8 fL Normal 80.0 - 100.0 fL [facility] Platelet mean volume (Bld) [Entitic vol] 7.6 fL Normal 6.4 - 10.8 fL [facility] Platelets (Bld) [#/Vol] 298.0 E9/L Normal 150.0 - 500.0 E9/L [facility] RBC (Bld) [#/Vol] 4.1 E12/L Low 4.3 - 5.9 E12/L [facility] WBC corrected for nucl RBC Auto (Bld) [#/Vol] 9.8 E9/L Normal 4.0 - 11.0 E9/L [facility] [place] [facility] Lipase Levelon 11-23-2022 Lipase [Catalytic activity/Vol] 41 U/L Normal 13-58 [facility] Comment on above: Performed By: #### 2 [id number] ####[facility] [address] [place] [address] Troponinon 11-23-2022 Troponin I.cardiac [Mass/Vol] 4.30 pg/mL Low 10.10-27.10 [facility] Comment on above: Result Comment: The 95% CI (Confidence Interval) PPV (Positive Predictive Value) for myocardial infarction in females is 38 pg/mL, in males 51 pg/mL. The results should be used in conjunction with clinical conditions of myocardial infarction. (Access High Sensitivity Troponin I Instructions For Use, Tu Deep, June 2018) Performed By: #### 2 [id number] ####[facility] [address] [place] [address] XR Ribs Unilat 3 Views Right w/ PA Cheston 11-23-2022 XR Ribs Unilat 3 Views Right w/ PA Chest Exam Date/Time: 11/23/2022 03:28 EST Reason for Exam: Pain, Non Traumatic Report IMPRESSION: NEGATIVE RIGHT RIBS. CLINICAL HISTORY: Pain, Non Traumatic COMPARISON: NONE. FINDINGS: 4 images of the right ribs show no acute displaced fracture. The size of the heart is within normal limit. Both lungs are clear. FINAL REPORT Dictated: 11/23/2022 9:00 am Terry Putnam M.D. Signed (Electronic Signature): 11/23/2022 9:00 am Signed by: Terry Putnam M.D. Transcribed by: MAYRA Technologist: JAS Daugherty [facility] eGFRon 11-23-2022 GFR/1.73 sq M.predicted among blacks MDRD (S/P/Bld) [Vol rate/Area] mL/min/{1.73_m2} Normal >=59 [facility] Comment on above: Order Comment: Order added by Discern Expert. Result Comment: eGFR is race adjusted. AA=. Performed By: #### 2 [id number], [id number] ####[facility] [address] [place] [address] GFR/1.73 sq M.predicted among non-blacks MDRD (S/P/Bld) [Vol rate/Area] mL/min/{1.73_m2} Normal >=59 [facility] Comment on above: Order Comment: Order added by Discern Expert. Result Comment: Ciso stephanie kidney disease could be indicated at eGFR's of less than 60 mL/min/1.73m2. Kidney failure is indicated at less than 15 mL/min/1.73m2. Performed By: #### 2 [id number] ####[facility] [address] [place] [address] TYPE AND SCREENon 11-16-2022 TYPE AND SCREEN Negative Normal [facility] Comment on above: Performed By: #### T NS #### [facility] [address] [place] [address] Dr. Daya Simms GLUCOSE - 1HRon 10-14-2022 Glucose [Mass/Vol] 118 mg/dL Critically high 74-106 [facility] Comment on above: Performed By: #### G LU1HR #### [facility] [address] [address] [address] Daya Simms PAP ACOG PANEL 2: 30 to 65on 10-05-2022 . . Normal [facility] Comment on above: Result Comment: Perf ormed at: WB Performed By: #### C BC #### [facility] [address] [address] [address] Daya Simms Age Gdln ACOG Testing 30-65 Normal [facility] Comment on above: Performed By: #### C BC #### [facility] [id number] Daya Simms DIAGNOSIS: Comment Normal [facility] Comment on above: Result Comment: NEGA TIVE FOR INTRAEPITHELIAL LESION OR MALIGNANCY. FUNGAL ORGANISMS MORPHOLOGICALLY CONSISTENT WITH BRANDY SPECIES ARE PRESENT. Performed at: WB Performed By: #### C BC #### [facility] [address] [address] [address] Daya Simms HPV Aptima Negative Normal Negative [facility] Comment on above: Result Comment: This nucleic acid amplification test detects fourteen high-risk HPV types (16,18,31,33,35,39,45,51,52,56,58,59,66,68) without differentiation. Performed at: =G Performed By: #### C BC #### [facility] [address] [address] [address] Daya Simms HPV Genotype Reflex Comment Normal [facility] Comment on above: Result Comment: Crit eria not met, HPV Genotype not performed. Performed at: WB Performed By: #### C BC #### [facility] [address] [place], [place] [id number] Dr. Daya Simms Methodology: Comment Normal [facility] Comment on above: Result Comment: This liquid based ThinPrep(R) pap test was screened with the use of an image guided system. Performed at: WB Performed By: #### C BC #### [facility] [address] [place] [address] Dr. Daya Simms Note: Comment Normal [facility] Comment on above: Result Comment: The Pap smear is a screening test designed to aid in the detection of premalignant and malignant conditions of the uterine cervix. It is not a diagnostic procedure and should not be used as the sole means of detecting cervical cancer. Both false-positive and false-negative reports do occur. . Performed at: WB Performed By: #### C BC #### [facility] [address] [address] [address] Daya Simms Performed by: Comment Normal [facility] Comment on above: Result Comment: Marisa Flores, Brand Communications Manager (ASCP) Performed at: WB Performed By: #### C BC #### [facility] [address] [place] [address] Dr. Daya Simms Specimen adequacy: Comment Normal [facility] Comment on above: Result Comment: Sati sfactory for evaluation. No endocervical component is identified. Performed at: WB Performed By: #### C BC #### [facility] [address] [place] [address] Dr. Daya Simms VAGINITIS/VAGINOSIS DNA PROB Deep 09-30-2022 Brandy species Positive Abnormal Negative [facility] Comment on above: Performed By: #### H BSANS #### [facility] [address] [place] [address] Dr. Daya Simms Gardnerella vaginalis Negative Normal Negative [facility] Comment on above: Performed By: #### H BSANS #### [facility] [address] [place] [address] Dr. Daya Simms Trichomonas vaginalis Negative Normal Negative [facility] Comment on above: Performed By: #### H BSANS #### [facility] [address] [place] [address] Dr. Daya Simms CHLAMYDIA/GONOCOCCUS ASAEL (SW AB/URINE/PAPon 09-29-2022 Chlamydia trachomatis, ASAEL Negative Normal Negative [facility] Comment on above: Performed By: #### H BSANS #### [facility] [address] [place] [address] Dr. Daya Simms Neisseria gonorrhoeae, ASAEL Negative Normal Negative [facility] Comment on above: Performed By: #### H BSANS #### [facility] [address] [place] [address] Dr. Daay Simms US PREG ANATOMY SINGLEon US PREG ANATOMY SINGLE EXAMINATION: US P REG ANATOMY SINGLE HISTORY: anatomy study COMPARISON: No relevant comparison available. TECHNIQUE: Transabdominal sonographic examination was performed for obstetrical and evaluation. FINDINGS: Number: 1 Heart Rate: 153.0 bpm H.B. /min Amniotic Fluid Volume: Subjectively normal position: Cephalic presentation, longitudinal lie Placental Location: Posterior. Grade 0, the central edge 3.8 cm from the cervical os Cervix Length: 3.5 cm, closed Normally visualized anatomy: Cerebellum, choroid plexus, cisterna magna, lateral cerebral ventricles, orbits, midline falx, hard palate, four-chamber heart, RVOT, LVOT, stomach, kidneys, bladder, umbilical cord insertion into the abdomen, three-vessel cord, cervical spine, thoracic spine, lumbar spine, sacral spine, right upper extremity, left upper extremity, right lower extremity, left lower extremity Suboptimally visualized anatomy: None BIOMETRY: BPD: 4.8 cm 20 weeks 4 days , 67% HC: 18.3 cm 20 weeks 5 days, 66% AC: 15.1 cm 20 weeks 2 days, 50% FL: 3.3 cm 20 weeks 2 days, 49% EFW:348.6 grams; 12 ounces, 58% FL/AC: 21.9 FL/BPD: 68.6 HC/AC: 1.2 GESTATIONAL AGE: Age by EDC: 20 weeks 1 days RONAL by EDC: 01/08/2023 Age by current US: 20 weeks 3 days RONAL by current US: 01/06/2023 IMPRESSION: Normal anatomy scan *Reference: [facility] Practice Guideline for the performance of Obstetric Ultrasound Examinations, August 26, 2007. Electronically authenticated by: RUTH VALENTINE Date: 2022-08-22 17:27 Normal [facility] HEP B SURFACE ANTIGEN SCREEN on 07-04-2022 HBsAg Screen Negative Normal Negative [facility] Comment on above: Performed By: #### H BSANS #### [facility] [address] [place] [address] Dr. Daya Simms HEPATITIS C VIRUS AB W/ REFL EX QUANTon 07-04-2022 HCV AB <0.1 Normal 0.0-0.9 [facility] Comment on above: Performed By: #### C BC #### [facility] [address] [place] [address] Dr. Daya Simms Interpretation: Comment Normal [facility] Comment on above: Result Comment: Nega tive Not infected with HCV, unless recent infection is suspected or other evidence exists to indicate HCV infection. Performed By: #### C BC #### [facility] [address] [place] [address] Dr. Daya Simms HIV 1 AND 2 WITH REFLEXon HIV Screen 4th Generation wRfx Non-Reactive Normal Non Reactive [facility] Comment on above: Result Comment: HIV Negative HIV-1/HIV-2 antibodies and HIV-1 p24 antigen were NOT detected. There is no laboratory evidence of HIV infection. Performed By: #### H BSANS #### [facility] [address] [place] [address] Dr. Daya Simms RPR QUANTon 07-04-2022 Rapid Plasma Reagin, Quant Non-Reactive Normal NonRea<1:1 [facility] Comment on above: Result Comment: Plea se Note: This test does not meet current guidelines for screening and diagnosis of syphilis. This test is intended for following treatment response in patients being treated for syphilis infection. To screen for syphilis infection, a reflex cascade that includes both RPR and a treponema-specific assay should be utilized, such as Treponema pallidum (Syphilis) Screening [place] (167264) or Rapid Plasma Reagin (RPR) Test With Reflex to Quantitative RPR and Confirmatory Treponema pallidum Antibodies ([id number]). Performed By: #### R PRQ #### [facility] [address] [place] [address] Dr. Daya Simms RUBELLA AB IGGon 07-04-2022 Rubella Antibodies, IgG 25.70 index Normal Immune >0.99 [facility] Comment on above: Result Comment: Non- immune <0.90 Equivocal 0.90 - 0.99 Immune >0.99 Performed By: #### H BSANS #### [facility] [address] [place] [address] Dr. Daya Simms CBC AUTO DIFFon 07-03-2022 BASO # 0.0 103/ul Normal 0.0-0.1 [facility] Comment on above: Performed By: #### C BC #### [facility] [address] [place] [address] Dr. Daya Simms Basophils/100 WBC (Bld) 0.5 % Normal 0.2-2.0 [facility] Comment on above: Performed By: #### C BC #### [facility] [address] [place] [address] Dr. Daya Simms EO # 0.2 103/ul Normal 0.0-0.7 [facility] Comment on above: Performed By: #### C BC #### [facility] [address] [place] [address] Dr. Daya Simms Eosinophils/100 WBC (Bld) 3.2 % Normal 0.9-7.0 [facility] Comment on above: Performed By: #### C BC #### [facility] [address] [place] [address] Dr. Daya Simms Erythrocyte distribution width (RBC) [Ratio] 13.4 % Normal 11.0-15.0 [facility] Comment on above: Performed By: #### C BC #### [facility] [address] [place] [address] Dr. Daya Simms Hematocrit (Bld) [Volume fraction] 42.0 % Normal 36.0-48.0 [facility] Comment on above: Performed By: #### C BC #### [facility] [address] [place] [address] Dr. Daya Simms Hemoglobin (Bld) [Mass/Vol] 13.9 g/dL Normal 12.0-16.0 [facility] Comment on above: Performed By: #### C BC #### [facility] [address] [place] [address] Dr. Daya Simms IG # 0.02 10e3/ul Normal 0.00-0.03 [facility] Comment on above: Performed By: #### C BC #### [facility] [address] [place] [address] Dr. Daya Simms IG % 0.3 % Normal 0.0-0.5 [facility] Comment on above: Performed By: #### C BC #### [facility] [address] [place] [address] Dr. Daya Simms LYMPH # 1.5 103/ul Normal 1.2-3.8 [facility] Comment on above: Performed By: #### C BC #### [facility] [address] [place] [address] Dr. Daya Simms Lymphocytes/100 WBC (Bld) 20.0 % Critically low 20.5-60.0 [facility] Comment on above: Performed By: #### C BC #### [facility] [address] [place] [address] Dr. Daya Simms MANUAL DIFF REQ NO Normal [facility] Comment on above: Performed By: #### C BC #### [facility] [address] [place] [address] Dr. Daya Simms MCH (RBC) [Entitic mass] 29.7 pg Normal 26.7-34.0 [facility] Comment on above: Performed By: #### C BC #### [facility] [address] [place] [address] Dr. Daya Simms MCHC (RBC) [Mass/Vol] 33.1 g/dL Normal 29.9-35.2 [facility] Comment on above: Performed By: #### C BC #### [facility] [address] [place] [address] Dr. Daya Simms MCV (RBC) [Entitic vol] 89.7 fL Normal 81.0-99.0 [facility] Comment on above: Performed By: #### C BC #### [facility] [address] [place] [address] Dr. Daya Simms MONO # 0.4 103/ul Normal 0.3-0.8 [facility] Comment on above: Performed By: #### C BC #### [facility] [address] [place] [address] Dr. Daya Simms Monocytes/100 WBC (Bld) 4.8 % Normal 1.7-12.0 [facility] Comment on above: Performed By: #### C BC #### [facility] [address] [address] [address] Daya Simms NEUT # 5.4 103/ul Normal 1.4-6.5 [facility] Comment on above: Performed By: #### C BC #### [facility] [address] [place] [address] Dr. Daya Simms Neutrophils/100 WBC (Bld) 71.2 % Normal 43.0-75.0 [facility] Comment on above: Performed By: #### C BC #### [facility] [address] [place] [address] Dr. Daya Simms Platelet mean volume (Bld) [Entitic vol] 9.2 fL Critically low 9.5-13.5 [facility] Comment on above: Performed By: #### C BC #### [facility] [address] [place] [address] Dr. Daya Simms PLT 232 103/ul Normal 150-450 [facility] Comment on above: Performed By: #### C BC #### [facility] [address] [place] [address] Dr. Daya Simms RBC 4.68 106/ul Normal 4.20-5.40 [facility] Comment on above: Performed By: #### C BC #### [facility] [address] [place] [address] Dr. Daya Simms WBC 7.6 103/ul Normal 4.0-11.0 [facility] Comment on above: Performed By: #### C BC #### [facility] [address] [place] [address] Dr. Daya Simms CULTURE URINEon 07-03-2022 CULTURE URINE Culture Observations: LIGHT GROWTH OF MIXED GENITAL JERRY. NO POTENTIAL PATHOGENS SEEN. Normal [facility] Comment on above: Performed By: #### U RCX #### [facility] [address] [place] [address] Dr. Daya Simms GLYCOHEMOGLOBIN A1Con 2021 ADA RECOMMENDATION SEE BELOW Normal [facility] Comment on above: Result Comment: ADA RECOMMENDED LIMIT 4.0 - 6.0 ADA THERAPEUTIC TARGET < 7.0 ACTION SUGGESTED > 7.0 Performed By: #### H BSANS #### [facility] [address] [place], [place] [address] Dr. Daya Simms Glucose [Mass/Vol] 74 mg/dL Normal [facility] Comment on above: Performed By: #### H BSANS #### [facility] [address] [place], [place] [address] Dr. Daya Simms HbA1c (Bld) [Mass fraction] 4.2 % Critically low 4.5-6.2 [facility] Comment on above: Performed By: #### H BSANS #### [facility] [address] [place], [place] [address] Dr. Daya Simms TYPE AND SCREENon 07-03-2022 TYPE AND SCREEN Negative Normal [facility] Comment on above: Performed By: #### T NS #### [facility] [address] [place], [place] [address] Dr. Daya Simms US PREG TVon 06-16-2022 US PREG TV EXAMINATION: US PREG TV HISTORY: Missed period COMPARISON: No relevant comparison available. FINDINGS: GESTATIONAL SAC: Present and normal appearing. POLE: Present and normal appearing. YOLK SAC: Present. CARDIAC: Present. UTERUS: Normal size and appearance. OVARIES: Right: Not seen. Left: Normal. CERVIX: 3.6 cm in length and closed. CUL-DE-SAC: Normal. OTHER: None. AGE BY LMP: 10 weeks, 4 days RONAL BY LMP: 01/08/2023 AGE BY US CRL: 11 weeks, 2 days RONAL BY US CRL: 01/03/2023 IMPRESSION: 1. Single live intrauterine . Electronically authenticated by: VALDEMAR CHE Date: 2022-06-16 16:15 Normal [facility] Vital Signs Date Time Vital Sign Value Performing Clinician Faci lity 01-03-2023 10:57-0500 Diastolic blood pressure 68 mm[Hg] Violeta Arce [facility] 01-03-2023 10:57-0500 Heart rate 93 /min Violeta Arce [facility] 01-03-2023 10:57-0500 Respiratory rate 18 /min Violeta Arce [facility] 01-03-2023 10:57-0500 SaO2% (BldA) [Mass fraction] 98 % Violeta Arce [facility] 01-03-2023 10:57-0500 Systolic blood pressure 116 mm[Hg] Violeta Arce [facility] 11-23-2022 04:08-0500 Diastolic blood pressure 70 mm[Hg] Vinod Arora [facility] 11-23-2022 04:08-0500 Heart rate 91 /min Vinod Ulysses [facility] 11-23-2022 04:08-0500 Respiratory rate 20 /min Vinod Ulysses [facility] 11-23-2022 04:08-0500 SaO2% (BldA) [Mass fraction] 99 % Vinod Arora [facility] 11-23-2022 04:08-0500 Systolic blood pressure 122 mm[Hg] Vinod Ulysses [facility] 11-23-2022 01:55-0500 Body temperature 97.52 [degF] Vinod Ulysses [facility] 11-23-2022 01:55-0500 Diastolic blood pressure 83 mm[Hg] Vinod Ulysses [facility] 11-23-2022 01:55-0500 Heart rate 97 /min Vinod Ulysses [facility] 11-23-2022 01:55-0500 Respiratory rate 20 /min Vinod Ulysses [facility] 11-23-2022 01:55-0500 SaO2% (BldA) [Mass fraction] 99 % Vinod Ulysses [facility] 11-23-2022 01:55-0500 Systolic blood pressure 127 mm[Hg] Vinod Arora [facility] Encounters Encounter Date Encounter Type Care Provider Facility Start: 10-08-2023 End: 10-08-2023 ambulatory ANJUM MADISON Not Available Start: 08-21-2023 End: 08-22-2023 [place] [place]: 01-03-2023 End: 01-04-2023 ambulatory Violeta Stanley Claude Facility:[facility] Start: 01-03-2023 End: 01-03-2023 Patient encounter procedure Violeta Arce [facility] Start: 12-22-2022 End: 12-24-2022 Evaluation and management of inpatient DR MALLORY MORELOS Facility:[facility] Start: 12-14-2022 End: 12-14-[address] ANJUM MADISON Facility:[facility] Start: 11-23-2022 End: 11-23-2022 Emergency department patient visit Vinod Ar[place] [place]: 11-23-2022 End: 11-23-2022 Emergency department patient visit Vinod Arora [facility] Start: 11-16-2022 End: 11-16-[address] ANJUM MADISON Facility:[facility] Start: 10-14-2022 End: 10-15-[address] KARLA ARROYO Facility:[facility] Start: 09-28-2022 End: 09-28-[address] ANJUM MADISON Facility:[facility] Start: 08-22-2022 End: 08-23-[address] RUTH VALENTINE Facility:[facility] Start: 07-03-2022 End: 07-04-[address] ANJUM MADISON Facility:[facility] Start: 06-16-2022 End: 06-17-[address] ANJUM HATTIE Facility:[facility] Procedures Date Procedure Procedure Detail Performing Clinician Start: 12-23-2022 Delivery of Products of Conception, External Approach DR ANJUM MADISON Start: 12-23-2022 Division of Female P erineum, External Approach DR ANJUM MADISON Start: 12-23-2022 Repair Perineum Musc le, Open Approach DR ANJUM MADISON Start: 11-26-2012 Loop electrosurgical excision procedure Vinod Arora Colposcopy Vinod Arora Comment on above: 2007, 2012, 2014 Tooth extraction, multiple K sharmaine Arora Comment on above: wisdom teeth Immunizations Immunization Date Immunization Notes Care Provider [facility] 09-14-2021 influenza virus vaccine, unspecified formulation Violeta Arce [facility] 04-29-2021 SARS-CoV-2 (COVID-19 ) mRNA-1273 vaccine Vinod Arora [facility] Comment on above: Result Comment: [facility] SARS-CoV-2 (COVID-19 ) mRNA-1273 vaccine Vinod Arora [facility] Comment on above: Result Comment: [facility] 09-21-2020 influenza virus vaccine, unspecified formulation Violetaira Arce [facility] 09-06-2020 influenza virus vaccine, unspecified formulation Vinod Arora [facility] 11-12-2013 HPV, unspecified formulation Violetaira Arce [facility] 07-16-2013 HPV, unspecified formulation Violetaclaudia Arce [facility] 05-14-2013 HPV, unspecified formulation Violeta Missler [facility] 09-10-2011 tetanus toxoid, redu arnoldo diphtheria toxoid, and acellular pertussis vaccine, adsorbed Vinod Arora [facility] Payers Date Payer Category Payer Unknown [id number] 2.16.84 [id number] 1987 Unknown [id number] 2.16.84 [id number] 1987 Unknown [id number] 2.16.84 [id number] 1987 Unknown [id number] 2.16.84 [id number] 1987 Unknown [id number] 2.16.84 [id number] 1987 Unknown [id number] 2.16.84 [id number] 1987 Unknown [id number] 2.16.84 [id number] 1987 Unknown [id number] 2.16.84 [id number] 1987 Unknown [id number] 2.16.8 [id number] 1987 Unknown [id number] 2.16.8 [id number] 1987 Unknown [id number] 2.16.8 [id number] 1987 Unknown [id number] 2.16.8 [id number] 1987 Unknown [id number]. [id number] 1959 Unknown [id number] 1959 Unknown [id number] Social History Date Type Detail Facility Tobacco [facility] Comment on above: Denies. Tobacco smoking status No Smokin g Status Entered [facility] Sex Assigned At Female [facility] Start: 01-03-2023 Tobacco smoking status Never s moked tobacco (finding) [facility] Tobacco smoking status Never Manis[facility] Functional Status Date Assessment Result Facility 01-03-2023 Functional Status N/A [facility] 11-23-2022 Functional Status N/A [facility] Discharge instructions 01-03-2023 Note Date & Type Note Facility 01-03-2023 Hospital Discharg e instructions Patient Education 01/03/2023 11:40:07 Otitis Media, Adult Otitis Media, Adult Otitis media occurs when there is inflammation and fluid in the middle ear. Your middle ear is a part of the ear that contains bones for hearing as well as air that helps send sounds to your brain. What are the causes? This condition is caused by a blockage in the eustachian tube. This tube drains fluid from the ear to the back of the nose (nasopharynx). A blockage in this tube can be caused by an object or by swelling (edema) in the tube. Problems that can cause a blockage include: A cold or other upper respiratory infection. Allergies. An irritant, such as tobacco smoke. Enlarged adenoids. The adenoids are areas of soft tissue located high in the back of the throat, behind the nose and the roof of the mouth. A mass in the nasopharynx. Damage to the ear caused by pressure changes (barotrauma). What are the signs or symptoms? Symptoms of this condition include: Ear pain. A fever. Decreased hearing. A headache. Tiredness (lethargy). Fluid leaking from the ear. Ringing in the ear. How is this diagnosed? This condition is diagnosed with a physical exam. During the exam your health care provider will use an instrument called an otoscope to look into your ear and check for redness, swelling, and fluid. He or she will also ask about your symptoms. Your health care provider may also order tests, such as: A test to check the movement of the eardrum (pneumatic otoscopy). This test is done by squeezing a small amount of air into the ear. A test that changes air pressure in the middle ear to check how well the eardrum moves and whether the eustachian tube is working (tympanogram). How is this treated? This condition usually goes away on its own within 3 5 days. But if the condition is caused by a bacteria infection and does not go away own its own, or keeps coming back, your health care provider may: Prescribe antibiotic medicines to treat the infection. Prescribe or recommend medicines to control pain. Follow these instructions at home: Take kbpj-eon-rhuditp and prescription medicines only as told by your health care provider. If you were prescribed an antibiotic medicine, take it as told by your health care provider. Do not stop taking the antibiotic even if you start to feel better. Keep all follow-up visits as told by your health care provider. This is important. Contact a health care provider if: You have bleeding from your nose. There is a lump on your neck. You are not getting better in 5 days. You feel worse instead of better. Get help right away if: You have severe pain that is not controlled with medicine. You have swelling, redness, or pain around your ear. You have stiffness in your neck. A part of your face is paralyzed. The bone behind your ear (mastoid) is tender when you touch it. You develop a severe headache. Summary Otitis media is redness, soreness, and swelling of the middle ear. This condition usually goes away on its own within 3 5 days. If the problem does not go away in 3 5 days, your health care provider may prescribe or recommend medicines to treat your symptoms. If you were prescribed an antibiotic medicine, take it as told by your health care provider. This information is not intended to replace advice given to you by your health care provider. Make sure you discuss any questions you have with your health care provider. Document Released: 08/17/2005 Document Revised: 10/25/2018 Document Reviewed: 11/02/2017 [employer] Patient Education 2020 [employer]. 01/03/2023 11:40:02 Sinusitis, Adult, [id number] Sinusitis, Adult Sinusitis is soreness and swelling (inflammation) of your sinuses. Sinuses are hollow spaces in the bones around your face. They are located: Around your eyes. In the middle of your forehead. Behind your nose. In your cheekbones. Your sinuses and nasal passages are lined with a fluid called mucus. Mucus drains out of your sinuses. Swelling can trap mucus in your sinuses. This lets germs (bacteria, virus, or fungus) grow, which leads to infection. Most of the time, this condition is caused by a virus. What are the causes? This condition is caused by: Allergies. Asthma. Germs. Things that block your nose or sinuses. Growths in the nose (nasal polyps). Chemicals or irritants in the air. Fungus (rare). What increases the risk? You are more likely to develop this condition if: You have a weak body defense system (immune system). You do a lot of swimming or diving. You use nasal sprays too much. You smoke. What are the signs or symptoms? The main symptoms of this condition are pain and a feeling of pressure around the sinuses. Other symptoms include: Stuffy nose (congestion). Runny nose (drainage). Swelling and warmth in the sinuses. Headache. Toothache. A cough that may get worse at night. Mucus that collects in the throat or the back of the nose (postnasal drip). Being unable to smell and taste. Being very tired (fatigue). A fever. Sore throat. Bad breath. How is this diagnosed? This condition is diagnosed based on: Your symptoms. Your medical history. A physical exam. Tests to find out if your condition is short-term (acute) or long-term (chronic). Your doctor may: ?Check your nose for growths (polyps). ?Check your sinuses using a tool that has a light (endoscope). ?Check for allergies or germs. ?Do imaging tests, such as an MRI or CT scan. How is this treated? Treatment for this condition depends on the cause and whether it is short-term or long-term. If caused by a virus, your symptoms should go away on their own within 10 days. You may be given medicines to relieve symptoms. They include: ?Medicines that shrink swollen tissue in the nose. ?Medicines that treat allergies (antihistamines). ?A spray that treats swelling of the nostrils. ?Rinses that help get rid of thick mucus in your nose (nasal saline washes). If caused by bacteria, your doctor may wait to see if you will get better without treatment. You may be given antibiotic medicine if you have: ?A very bad infection. ?A weak body defense system. If caused by growths in the nose, you may need to have surgery. Follow these instructions at home: Medicines Take, use, or apply trox-upa-uprwyjp and prescription medicines only as told by your doctor. These may include nasal sprays. If you were prescribed an antibiotic medicine, take it as told by your doctor. Do not stop taking the antibiotic even if you start to feel better. Hydrate and humidify Drink enough water to keep your pee (urine) pale yellow. Use a cool mist humidifier to keep the humidity level in your home above 50%. Breathe in steam for 10 15 minutes, 3 4 times a day, or as told by your doctor. You can do this in the bathroom while a hot shower is running. Try not to spend time in cool or dry air. Rest Rest as much as you can. Sleep with your head raised (elevated). Make sure you get enough sleep each night. General instructions Put a warm, moist washcloth on your face 3 4 times a day, or as often as told by your doctor. This will help with discomfort. Wash your hands often with soap and water. If there is no soap and water, use hand combatant diver officer. Do not smoke. Avoid being around people who are smoking (secondhand smoke). Keep all follow-up visits as told by your doctor. This is important. Contact a doctor if: You have a fever. Your symptoms get worse. Your symptoms do not get better within 10 days. Get help right away if: You have a very bad headache. You cannot stop throwing up (vomiting). You have very bad pain or swelling around your face or eyes. You have trouble seeing. You feel confused. Your neck is stiff. You have trouble breathing. Summary Sinusitis is swelling of your sinuses. Sinuses are hollow spaces in the bones around your face. This condition is caused by tissues in your nose that become inflamed or swollen. This traps germs. These can lead to infection. If you were prescribed an antibiotic medicine, take it as told by your doctor. Do not stop taking it even if you start to feel better. Keep all follow-up visits as told by your doctor. This is important. This information is not intended to replace advice given to you by your health care provider. Make sure you discuss any questions you have with your health care provider. Document Released: 04/30/2009 Document Revised: 04/14/2019 Document Reviewed: 04/14/2019 [employer] Patient Education 2019 [employer] Follow Up Care 01/03/2023 07:52:06 With:Claude FARMER, Violeta Stanley Address: [place] [address]- When: only if needed [facility] Primary Care Evaluation + Plan note 11-23-2022 Note Date & Type Note Facility 11-23-2022 Evaluation + Plan note Extrac maryan from: Title:ED Note Author:Vinod Arora DO Date:1 Rib pain (R07.81: Pleurodyni a) Orders: acetaminophen, 975 mg = 3 tab(s), Tab, Oral, Once, Stop date 11/23/22 3:52:00 EST, STAT, Start date 11/23/22 3:52:00 EST, 11/23/22 3:52:00 EST lidocaine topical, 1 patch(es), Patch, TransDermal, Once, Stop date 11/23/22 2:26:00 EST, STAT, Start date 11/23/22 2:26:00 EST lidocaine topical, 1 patch(es), Topical, Daily, 7 EA, Refill(s) 0, apply 12 hours on and 12 hours off daily, [facility] #[id number], 170, cm, 11/23/22 1:58:00 EST, Height/Length Dosing, 70.3, kg, 11/23/22 1:58:00 EST, Weight Dosing morphine, 2 mg = 1 mL, Injection, IV Push, Once, Stop date 11/23/22 2:26:00 EST, STAT, Start date 11/23/22 2:26:00 EST, 11/23/22 2:26:00 EST ondansetron, 4 mg = 2 mL, Injection, IV Push, Once, Stop date 11/23/22 2:49:00 EST, STAT, Start date 11/23/22 2:49:00 EST, 11/23/22 2:49:00 EST predniSONE, 40 mg = 2 tab(s), Oral, Daily, X 4 day(s), # 8 tab(s), Refills(s) 0, Pharmacy: [facility] #[id number], 170, cm, 11/23/22 1:58:00 EST, Height/Length Dosing, 70.3, kg, 11/23/22 1:58:00 EST, Weight Dosing predniSONE, 40 mg = 2 tab(s), Tab, Oral, Once, Stop date 11/23/22 3:52:00 EST, STAT, Start date 11/23/22 3:52:00 EST, 11/23/22 3:52:00 EST Automated Diff CBC w/ Auto Diff Comprehensive Metabolic Panel ECG 12 Lead Adult eGFR Lipase Level Troponin XR Ribs Unilat 3 Views Right w/ PA Chest [facility] Hospital Discharge instructions 11-23-2022 Note Date & Type Note Facility 11-23-2022 Hospital Discharg e instructions Patient Education 11/23/2022 03:55:56 Nonspecific Chest Pain, Adult Nonspecific Chest Pain, Adult Chest pain can be caused by many different conditions. It can be caused by a condition that is life-threatening and requires treatment right away. It can also be caused by something that is not life-threatening. If you have chest pain, it can be hard to know the difference, so it is important to get help right away to make sure that you do not have a serious condition. Some life-threatening causes of chest pain include: Heart attack. A tear in the body's main blood vessel (aortic dissection). Inflammation around your heart (pericarditis). A problem in the lungs, such as a blood clot (pulmonary embolism) or a collapsed lung (pneumothorax). Some non life-threatening causes of chest pain include: Heartburn. Anxiety or stress. Damage to the bones, muscles, and cartilage that make up your chest wall. Pneumonia or bronchitis. Shingles infection (varicella-zoster virus). Chest pain can feel like: Pain or discomfort on the surface of your chest or deep in your chest. Crushing, pressure, aching, or squeezing pain. Burning or tingling. Dull or sharp pain that is worse when you move, cough, or take a deep breath. Pain or discomfort that is also felt in your back, neck, jaw, shoulder, or arm, or pain that spreads to any of these areas. Your chest pain may come and go. It may also be constant. Your health care provider will do lab tests and other studies to find the cause of your pain. Treatment will depend on the cause of your chest pain. Follow these instructions at home: Medicines Take lqtu-iuh-xeyasus and prescription medicines only as told by your health care provider. If you were prescribed an antibiotic, take it as told by your health care provider. Do not stop taking the antibiotic even if you start to feel better. Lifestyle Rest as directed by your health care provider. Do not use any products that contain nicotine or tobacco, such as cigarettes and e-cigarettes. If you need help quitting, ask your health care provider. Do not drink alcohol. Make healthy lifestyle choices as recommended. These may include: ?Getting regular exercise. Ask your health care provider to suggest some activities that are safe for you. ?Eating a heart-healthy diet. This includes plenty of fresh fruits and vegetables, whole grains, low-fat (lean) protein, and low-fat dairy products. A dietitian can help you find healthy eating options. ?Maintaining a healthy weight. ?Managing any other health conditions you have, such as high blood pressure (hypertension) or diabetes. ?Reducing stress, such as with yoga or relaxation techniques. General instructions Pay attention to any changes in your symptoms. Tell your health care provider about them or any new symptoms. Avoid any activities that cause chest pain. Keep all follow-up visits as told by your health care provider. This is important. This includes visits for any further testing if your chest pain does not go away. Contact a health care provider if: Your chest pain does not go away. You feel depressed. You have a fever. Get help right away if: Your chest pain gets worse. You have a cough that gets worse, or you cough up blood. You have severe pain in your abdomen. You faint. You have sudden, unexplained chest discomfort. You have sudden, unexplained discomfort in your arms, back, neck, or jaw. You have shortness of breath at any time. You suddenly start to sweat, or your skin gets clammy. You feel nausea or you vomit. You suddenly feel lightheaded or dizzy. You have severe weakness, or unexplained weakness or fatigue. Your heart begins to beat quickly, or it feels like it is skipping beats. These symptoms may represent a serious problem that is an emergency. Do not wait to see if the symptoms will go away. Get medical help right away. Call your local emergency services (911 in the [place] Do not drive yourself to the hospital. Summary Chest pain can be caused by a condition that is serious and requires urgent treatment. It may also be caused by something that is not life-threatening. If you have chest pain, it is very important to see your health care provider. Your health care provider may do lab tests and other studies to find the cause of your pain. Follow your health care provider's instructions on taking medicines, making lifestyle changes, and getting emergency treatment if symptoms become worse. Keep all follow-up visits as told by your health care provider. This includes visits for any further testing if your chest pain does not go away. This information is not intended to replace advice given to you by your health care provider. Make sure you discuss any questions you have with your health care provider. Document Released: 08/22/2006 Document Revised: 05/15/2019 Document Reviewed: 05/15/2019 [employer] Patient Education 2020 [employer]. 11/23/2022 03:55:56 Cough, Adult Cough, Adult Coughing is a reflex that clears your throat and your airways (respiratory system). Coughing helps to heal and protect your lungs. It is normal to cough occasionally, but a cough that happens with other symptoms or lasts a long time may be a sign of a condition that needs treatment. An acute cough may only last 2 3 weeks, while a chronic cough may last 8 or more weeks. Coughing is commonly caused by: Infection of the respiratory systemby viruses or bacteria. Breathing in substances that irritate your lungs. Allergies. Asthma. Mucus that runs down the back of your throat (postnasal drip). Smoking. Acid backing up from the stomach into the esophagus (gastroesophageal reflux). Certain medicines. Chronic lung problems. Other medical conditions such as heart failure or a blood clot in the lung (pulmonary embolism). Follow these instructions at home: Medicines Take kijn-eny-yvtyxea and prescription medicines only as told by your health care provider. Talk with your health care provider before you take a cough suppressant medicine. Lifestyle Avoid cigarette smoke. Do not use any products that contain nicotine or tobacco, such as cigarettes, e-cigarettes, and chewing tobacco. If you need help quitting, ask your health care provider. Drink enough fluid to keep your urine pale yellow. Avoid caffeine. Do not drink alcohol if your health care provider tells you not to drink. General instructions Pay close attention to changes in your cough. Tell your health care provider about them. Always cover your mouth when you cough. Avoid things that make you cough, such as perfume, candles, cleaning products, or campfire or tobacco smoke. If the air is dry, use a cool mist vaporizer or humidifier in your bedroom or your home to help loosen secretions. If your cough is worse at night, try to sleep in a semi-upright position. Rest as needed. Keep all follow-up visits as told by your health care provider. This is important. Contact a health care provider if you: Have new symptoms. Cough up pus. Have a cough that does not get better after 2 3 weeks or gets worse. Cannot control your cough with cough suppressant medicines and you are losing sleep. Have pain that gets worse or pain that is not helped with medicine. Have a fever. Have unexplained weight loss. Have night sweats. Get help right away if: You cough up blood. You have difficulty breathing. Your heartbeat is very fast. These symptoms may represent a serious problem that is an emergency. Do not wait to see if the symptoms will go away. Get medical help right away. Call your local emergency services (911 in the [place] Do not drive yourself to the hospital. Summary Coughing is a reflex that clears your throat and your airways. It is normal to cough occasionally, but a cough that happens with other symptoms or lasts a long time may be a sign of a condition that needs treatment. Take qqkp-uab-rrxsert and prescription medicines only as told by your health care provider. Always cover your mouth when you cough. Contact a health care provider if you have new symptoms or a cough that does not get better after 2 3 weeks or gets worse. This information is not intended to replace advice given to you by your health care provider. Make sure you discuss any questions you have with your health care provider. Document Released: 05/10/2012 Document Revised: 12/01/2019 Document Reviewed: 12/01/2019 [employer] Patient Education 2020 [employer] Follow Up Care 11/23/2022 01:54:01 With:Anjum MADISON Address: [address] , [place] [address]- Business (1) When:11/26/2022 Comments:Call Dr. Madison to discuss your ED visit.Take Tylenol extra strength scheduled for the next 5 days. Use Lidoderm patches.Take steroid as prescribed. With:Pedrito SILVESTRE Address: [facility] [address], [address] [facility] [address] [place] [address]- Business (1) When:11/26/2022 Comments:Call the office of your primary care doctor to arrange for follow-up within the above-stated timeframe. Follow-up with your primary care doctor about this ED visit. You should review your labs, imaging, and diagnoses from this ED visit with your primary care physician. If you were prescribed medications you should discuss possible side-effects and drug interactions with your pharmacist. Call 911 or go to the nearest Emergency Department if you develop any new or worsening symptoms.Seek immediate medical attention if you develop: worsening chest pain, new chest pain, nausea, vomiting, weakness, numbness, tingling, excessive sweating, shortness of breath, difficulty breathing, loss of motion in your arms or legs, or any new or worsening symptoms. [facility] Hospital course Narrative Note Date & Type Note Facility Hospital course Narrative No data available for this section [facility] Progress note Note Date & Type Note Facility Progress note No data available for this section [facility] Summary Purpose Family History No Family History Records FoundNo Family History Records FoundNo Family History Records Found Advance Directives No Advanced Directives Records FoundNo Advanced Directives Records FoundNo Advanced Directives Records Found Additional Source Comments Patient Care team informatio n (unrecognized section and content) Personnel Name: Pedrito SILVESTRE MD Address: Address: [address], [address] [facility] [address] [place] [address]- Personnel Name: Jason HURT MD Address: Address: [facility] [address], [place] [address]- INFORMATION SOURCE (unrecogn ized section and content) DATE CREATED AUTHOR 12/27/2022 [facility] DATE CREATED AUTHOR AUTHOR'S ORGANIZ ATION 08/29/2023 [facility] DATE CREATED AUTHOR AUTHOR'S ORGANIZ ATION 10/09/2023 [facility] EPIC FOR RECORDS PERTAINING TO PATIENTS WHO ARE OR HAVE BEEN ENROLLED IN A CHEMICAL DEPENDENCY/SUBSTANCEABUSE PROGRAM, SOME INFORMATION MAY BE OMITTED. This clinical summary was aggregated from multiple sources. Caution should be exercised in using it in the provision of clinical care. This summary normalizes information from multiple sources, and as a consequence, information in this document may materially change the coding, format and clinical context of patient data. In addition, data may be omitted in some cases. CLINICAL DECISIONS SHOULD BE BASED ON THE PRIMARY CLINICAL RECORDS. [facility], [facility]. provides no warranty or guarantee of the accuracy or completeness of information in this document.
== END 2024-08-14 14:06 | disposition home or self-care (01) ==
LOC: NOMS 14:05
PROVIDERS: Visit Provider Obstetrics & Gynecology
DX: Z34.91 Encounter for supervision of normal pregnancy, unspecified, first trimester (principal)
CPT/HCPCS: 76817

== ENCOUNTER 2024-10-27 14:29 | Outpatient (OUT) | payer OTHER, SELFPAY ==
--- NOTE | 2024-10-27 14:31 | US_ITS ---
[address] [address] Patient Name: SCOTT GALVAN MRN: [facility]:[id number] date: 1985 Sex: F Assigned Patient Location: [facility] Current Patient Location: Accession/Order Number: [id number] Exam Date: 10/27/2024 14:33 Report Date: 10/28/2024 04:45 At the request of: ANJUM KUHN Procedure: US OB cervical length EXAMINATION: US OB anatomy, US OB cervical length HISTORY: ANATOMY COMPARISON: Ultrasound OB transvaginal 08/14/2024 TECHNIQUE: Transabdominal sonographic examination was performed for obstetrical and evaluation. FINDINGS: Number: 1 Heart Rate: 170 bpm H.B. /min Amniotic Fluid Volume: Subjectively normal Placental Location: ANTERIOR with lower margin 6.3 cm from os. Cervix Length: 3.17 cm ; closed. ANATOMY: Normal Structures -cerebellum, choroid plexus, cisterna magna, lateral cerebral ventricles, orbits, midline falx, hard palate, four-chamber heart, RVOT, LVOT, stomach, kidneys, bladder, umbilical cord insertion into abdomen, three-vessel cord, cervical spine, thoracic spine, lumbar spine, sacral spine, right upper extremity, left upper extremity, right lower extremity, left lower extremity. SUBOPTIMALLY SEEN: None ABNORMALITIES: None BIOMETRY: BPD: 4.75 cm; 20 weeks 3 days; 71 % HC: 18.03 cm; 20 weeks 3 days; 70.10 % AC: 15.99 cm; 21 weeks 1 day; 82.50 % FL: 3.31 cm; 20 weeks 2 days; 60.70 % EFW:374.86 g; 89 % FL/AC: 20.70 FL/BPD: 69.68 HC/AC: 1.13 GESTATIONAL AGE: Age by EDC: 19 weeks 6 days Age by current US: 20 weeks 4 days RONAL by current US: 2025-03-12 RONAL by EDC: 2025-03-17 US/US OB cervical length IMPRESSION: 1. Single live intrauterine with growth detailed above. 2. Closed cervix 3.2 cm in length. Electronically authenticated by: VALDEMAR CHE Date: 10/28/2024 04:45
--- NOTE | 2024-10-27 14:31 | US_ITS ---
[address] [address] Patient Name: SCOTT GALVAN MRN: [facility]:[id number] date: 1985 Sex: F Assigned Patient Location: [facility] Current Patient Location: Accession/Order Number: [id number] Exam Date: 10/27/2024 14:33 Report Date: 10/28/2024 04:45 At the request of: ANJUM KUHN Procedure: US OB anatomy EXAMINATION: US OB anatomy, US OB cervical length HISTORY: ANATOMY COMPARISON: Ultrasound OB transvaginal 08/14/2024 TECHNIQUE: Transabdominal sonographic examination was performed for obstetrical and evaluation. FINDINGS: Number: 1 Heart Rate: 170 bpm H.B. /min Amniotic Fluid Volume: Subjectively normal Placental Location: ANTERIOR with lower margin 6.3 cm from os. Cervix Length: 3.17 cm ; closed. ANATOMY: Normal Structures -cerebellum, choroid plexus, cisterna magna, lateral cerebral ventricles, orbits, midline falx, hard palate, four-chamber heart, RVOT, LVOT, stomach, kidneys, bladder, umbilical cord insertion into abdomen, three-vessel cord, cervical spine, thoracic spine, lumbar spine, sacral spine, right upper extremity, left upper extremity, right lower extremity, left lower extremity. SUBOPTIMALLY SEEN: None ABNORMALITIES: None BIOMETRY: BPD: 4.75 cm; 20 weeks 3 days; 71 % HC: 18.03 cm; 20 weeks 3 days; 70.10 % AC: 15.99 cm; 21 weeks 1 day; 82.50 % FL: 3.31 cm; 20 weeks 2 days; 60.70 % EFW:374.86 g; 89 % FL/AC: 20.70 FL/BPD: 69.68 HC/AC: 1.13 GESTATIONAL AGE: Age by EDC: 19 weeks 6 days Age by current US: 20 weeks 4 days RONAL by current US: 2025-03-12 RONAL by EDC: 2025-03-17 US/US OB anatomy IMPRESSION: 1. Single live intrauterine with growth detailed above. 2. Closed cervix 3.2 cm in length. Electronically authenticated by: VALDEMAR CHE Date: 10/28/2024 04:45
--- OUTSIDE RECORDS SUMMARY | 2024-10-27 14:39 | XMS_ITS | CCD ---
Author Organization [facility] InformFormerly [facility] Care Team Providers Care Composition Floor Setter Name Role Phone Pedrito SILVESTRE Primary Care Physician LOS, DR VALERO Consulting Unavailable LOS, DR VALERO Admitting Unavailable LOS, DR VALERO Attending Unavailable REQUEST, DR ACOSTA LISTED Primary Care Unavaila ble REQUEST, DR ACOSTA LISTED Primary Care Unavaila ble LOS, DR VALERO Admitting Unavailable LOS, DR VALERO Attending Unavailable LOS, DR VALERO Consulting Unavailable LOS, DR VALERO Admitting Unavailable REQUEST, DR NONE LISTED Primary Care Unavaila ble LOS, DR VALERO Attending Unavailable LOS, DR VALERO Consulting Unavailable ZIEBER, DR VALDEMAR Perdomo Consulting Unavailable LOS, DR VALERO Admitting Unavailable LICHA, DR JASON Kimball Primary Care Unavailable LOS, DR VALERO Attending Unavailable LOS, DR VALERO Consulting Unavailable LOS, DR VALERO Attending Unavailable LOS, DR VALERO Admitting Unavailable REQUEST, DR KARLA LISTED Primary Care Unavaila ble LOS, DR VALERO Consulting Unavailable KARASIK, DR TEJADA Consulting Unavailable LOS, DR VALERO Admitting Unavailable LICHA, DR JASON Kimball Primary Care Unavailable LOS, DR VALERO Attending Unavailable LOS, DR VALERO Consulting Unavailable LOS, DR VALREO Procedure Practitioner Unavailab juan david SHELLY IIMOISES Consulting Unavailable LOS, DR VALERO Admitting Unavailable LICHA, DR JASON Kimball Primary Care Unavailable LOS, DR VALERO Attending Unavailable LOS, DR VALERO Consulting Unavailable HILLSBORO, DR RUTH Negron Consulting Unavailable LOS, DR VALERO Admitting Unavailable LOS, DR VALERO Attending Unavailable REQUEST, DR KARLA LISTED Primary Care Unavaila ble LOS, DR VALERO Consulting Unavailable Jason HURT Primary Care Physician [phone] Annika Thompson Attending Unavailable Annika Thompson Attending Unavailable LOS, Anjum Perdomo Admitting Unavailable LOS, Anjum R Attending Unavailable LOS, Anjum R Attending Unavailable LOS, Anjum R Admitting Unavailable Unavailable Primary Care Provider Unavailabl e ANJUM MADISON Attending Unavailable LOS, ANJUM Attending Unavailable Medications Current Medications Medication Drug Class(es) Dates Sig (Normalized) Sig (Original) Albuterol (Eqv-ProAir HFA) 90 mcg/inh inhalation aerosol (3 sources) Start: 08-27-2024 take 2 puff(s) by inhalation every six hours Albuterol (Eqv-ProAir HFA) 90 mcg/inh inhalation aerosol 2 puff(s), Inhalation, q6hr, 8 gm, Refill(s) 0, [id number], 169, cm, 08/27/24 14:59:00 EDT, Height/Length Dosing, 62.2, kg, 08/27/24 14:59:00 EDT, Weight Dosing Start Date: 08/27/24 Status: Ordered Albuterol-Budesonid e 90-80 MCG/ACT aerosol (2 sources) Start: 08-27-2024 take 2 puff(s) by inhalation every six hours Albuterol-Budesoni de 90-80 MCG/ACT aerosol 2 puff(s), Inhalation, q6hr, 8 gm, [facility]s) [id number], 169, cm, 08/27/24 14:59:00 EDT, Height/Length Dosing, 62.2, kg, 08/27/24 14:59:00 EDT, Weight Dosing 08/27/2024 Active amoxicillin 500 mg oral tablet (2 sources) Penicillin-class Antibacterial Start: 09-15-2024 End: 09-25-2024 take 1 tablet by mouth in the morning, then take 1 tablet by mouth in the evening, then take 1 tablet by mouth at bedtime amoxicillin (Amoxil) 500 MG tablet Indications: Urinary tract infection without hematuria, site unspecified Take 1 tablet (500 mg) by mouth in the morning and 1 tablet (500 mg) in the evening and 1 tablet (500 mg) before bedtime. Do all this for 10 days. 30 tablet 09/15/2024 09/25/2024 Active amoxicillin 875 mg / clavulanate 125 mg oral tablet (1 source) Penicillin-class Antibacterial Start: 01-03-2023 End: 01-13-2023 take 1 tablet by mouth every twelve hours Augmentin 875 mg oral tablet = 1 tab(s), Oral, q12hr, X 10 day(s), # 20 tab(s), Refills(s) 0, Pharmacy: [facility] #[id number], 170, cm, 01/03/23 11:05:00 EST, Height/Length Dosing, 64.4, kg, 01/03/23 11:05:00 EST, Weight Dosing Start Date: 01/03/23 Stop Date: 01/13/23 Status: Ordered azithromycin 250 mg oral tablet (2 sources) Macrolide Antimicrobial Start: 08-14-2024 azithromycin (Zithromax Z-Dennis) 250 MG tablet Indications: URI, acute As directed 6 tablet 08/14/2024 Active Co-Q10 50 mg oral capsule (2 sources) Start: 10-06-2020 take 1 capsule by mouth once daily Co-Q10 50 mg oral capsule 50 mg = 1 cap(s), Oral, Daily, Refills(s) 0 Start Date: 10/06/20 Status: Ordered guaiFENesin (1 source) Start: 01-03-2023 Mucinex D oral tablet, extended release 1 tab(s), Oral, BID for cold symptoms, 20 tab(s), Refill(s) 0, [facility] - [facility] #[id number], 170, cm, 01/03/23 11:05:00 EST, Height/Length Dosing, 64.4, kg, 01/03/23 11:05:00 EST, Weight Dosing Start Date: 01/03/23 Status: Ordered lidocaine 0.05 mg/mg medicated patch (2 sources) Antiarrhythmic, Amide Local Anesthetic Start: 11-23-2022 Lidoderm 5% Patch 1 patch(es), Topical, Daily, 7 EA, Refill(s) 0, apply 12 hours on and 12 hours off daily, [facility] - [facility] #[id number], 170, cm, 11/23/22 1:58:00 EST, Height/Length Dosing, 70.3, kg, 11/23/22 1:58:00 EST, Weight Dosing Start Date: 11/23/22 Status: Ordered magnesium oxide 400 mg oral tablet (7 sources) Start: 08-14-2024 End: 08-14-2025 take 1 tablet by mouth once daily magnesium oxide (Mag-Ox) 400 MG tablet Indications: headache in first trimester Take 1 tablet (400 mg) by mouth Daily 30 tablet 11 08/14/2024 08/14/2025 Active Omeprazole (1 source) Proton Pump Inhibitor Start: 01-03-2023 omeprazole Refills(s) 0 Start Date: 01/03/23 Status: Ordered predniSONE 20 mg oral tablet (1 source) Start: 11-23-2022 End: 11-27-2022 take 2 tablets by mouth once daily predniSONE 20 mg Tab 40 mg = 2 tab(s), Oral, Daily, X 4 day(s), # 8 tab(s), Refills(s) 0, Pharmacy: [facility] #[id number], 170, cm, 11/23/22 1:58:00 EST, Height/Length Dosing, 70.3, kg, 11/23/22 1:58:00 EST, Weight Dosing Start Date: 11/23/22 Stop Date: 11/27/22 Status: Ordered Elite oral capsule (5 sources) Start: 12-12-2019 take 1 capsule by mouth once daily Elite oral capsule 1 cap(s), Oral, Daily Start Date: 12/12/19 Status: Ordered Fnpkubiy-Fuy-Qk-FA ( 1 + IRON PO) (2 sources) Vsxddxhn-Qek-Da-FA ( 1 + IRON PO) Active Problems Problem Classification Problem Date Documented Date [...] 12-27-2022 Episodic Other and unspecified benign neoplasm (5 sources) Fibroadenoma of breast 10-08-2020 Episodic Other [...] 11-23-2022 Episodic Other and delivery including normal (13 sources) Encounter for supervision of normal , unspecified, third trimester; Translations: [Single live ] Onset: 10-14-2022 Episodic Other screening for suspected conditions (not mental disorders or infectious disease) (9 sources) Encounter for screening for malignant neoplasm of cervix; Translations: [Encounter for other specified screening] Onset: 07-05-2022 Episodic Other skin disorders (5 sources) Loss of hair 05-31-2021 Episodic Other skin disorders (4 sources) Localized swelling, mass and lump, upper limb, bilateral; Translations: [Localized superficial swelling, mass, or lump] Onset: 09-15-2024 09-15-2024 Episodic Other upper respiratory disease (1 source) Disorder of the nose; Translations: [Other specified disorders of nose and nasal sinuses] Onset: 01-03-2023 Episodic Other upper respiratory infections (1 source) Chronic sinusitis; Translations: [Chronic sinusitis, unspecified] Onset: 01-03-2023 Chronic Other upper respiratory infections (1 source) Acute upper respiratory infection; Translations: [Acute upper respiratory infection, unspecified] Onset: 08-27-2024 Episodic Otitis media and related conditions (4 sources) Otitis media; Translations: [Otitis media, unspecified, left [...] index (BMI) 22.0-22.9, adult] Onset: 01-03-2023 Episodic Residual codes; unclassified (2 sources) Gestation period, 13 weeks; Translations: [13 weeks gestation of ] 09-15-2024 Episodic Urinary tract infections (4 sources) Urinary tract infectious disease; Translations: [Urinary tract infection, site not specified] Onset: 09-15-2024 09-15-2024 Episodic Viral infection (5 sources) Verruca plantaris 05-31-2021 Episodic Results Test Name Value Interpretation Reference Range Facility C Urineon 09-12-2024 Bacteria identified Cx Nom (U) Microbiology PROCEDURE: Urine Culture [R1] SOURCE: U CleanCatch BODY SITE: COLLECTED DATE/TIME: 09/10/2024 12:00 EDT RECEIVED DATE/TIME: 09/10/2024 15:59 EDT START DATE/TIME: 09/10/2024 15:59 EDT FREE TEXT SOURCE: Anjum MADISON DO, DO, Corey R FINAL REPORTS Final Report [] Verified Date/Time: 09/12/2024 08:41 EDT 60,000 cfu/ml Streptococcus agalactiae (Group B) Presumptive isolated. Penicillin is the drug of choice for Beta Hemolytic Streptococci Isolates. Routine susceptibility testing on Beta Hemolytic Streptococcus isolates is no longer performed. Susceptibilities will continue to be performed on Isolates from sterile body fluids and serious wound infections. 200 cfu/ml Mixed skin contaminants Performing Locations R1: This test was performed at: [facility], [address] [place] [address], [address] , [place], Normal [facility] Comment on above: Performed By: #### 2 [id number] #### [facility] [address] [place] [id number] .Interpretation:on 4 HCV Ab IA Ql Comment Invalid Interpretation Code [facility] Comment on above: Result Comment: Not infected with HCV unless early or acute infection is suspected (which may be delayed in an immunocompromised individual), or other evidence exists to indicate HCV infection. Performed at: [address] [id number] PhD Juan Craig Performed By: #### 2 [id number] #### [facility] [address] [place] [address] HCV Antibody RFX to Quant PC Blade 09-11-2024 HCV IgG IA Ql Non-Reactive Invalid Interpretation Code Non Reactive [facility] Comment on above: Result Comment: Perf ormed at: [address] [id number] PhD Juan Craig Performed By: #### 2 [id number] #### [facility] [address] [place] [address] HIV Screen 4th Generation wR fxon 09-11-2024 HIV 1+2 Ab+HIV1 p24 Ag IA Ql Non-Reactive Invalid Interpretation Code Non Reactive [facility] Comment on above: Result Comment: HIV- 1/HIV-2 antibodies and HIV-1 p24 antigen were NOT detected. There is no laboratory evidence of HIV infection. HIV Negative Performed at: [address] [id number] PhD Juan Craig Performed By: #### 9 [id number] #### [facility] [address] [place] [address] Hep Bs Agon 09-11-2024 HBV surface Ag IA Ql Negative Invalid Interpretation Code Negative [facility] Comment on above: Result Comment: Perf ormed at: [address] [id number] PhD Juan Craig Performed By: #### 2 [id number] #### [facility] [address] [place] [address] RPR with Conf Rfxon 09-11-20 24 Reagin Ab RPR Ql (S) Non-Reactive Invalid Interpretation Code Non Reactive [facility] Comment on above: Result Comment: Perf ormed at: [address] [place] [id number] PhD Juan Craig Performed By: #### 1 [id number] #### [facility] [address] [place] [address] Rubella IgGon 09-11-2024 Rubella virus IgG Qn (S) 23.60 [IU]/mL Invalid Interpretation Code Immune >0.99 [facility] Comment on above: Result Comment: Non- immune <0.90 Equivocal 0.90 - 0.99 Immune >0.99 Performed at: [facility] [address] [id number] PhD Juan Craig Performed By: #### 1 [id number] #### [facility] [address] [place] [address] ABO/Rhon 09-10-2024 ABO/Rh Negative Invalid Interpretation Code [facility] Comment on above: Performed By: #### 2 [id number] #### [facility] [address] [place] [address] ABSCon 09-10-2024 ABSC Gel Interp Negative Normal [facility] Comment on above: Performed By: #### 1 [id number] #### [facility] [address] [place] [address] BLOOD BANKOrdered By: Demetrius Quispe on 09-10-2024 ABO/Rh Interp Negative Invalid Interpretation Code [facility] BB Subsection ABSC Gel Interp Negative (09/10/24 12:05 PM) Normal [facility] BB Subsection CBC w/ Auto Diffon 4 Basophils/100 WBC (Bld) 0.3 % Normal 0.0-2.0 [facility] Comment on above: Performed By: #### 2 [id number] #### [facility] [address] [place] [address] Basophils/Leukocytes Auto (Bld) [Pure # fraction] 0.0 E9/L Normal 0.0-0.2 [facility] Comment on above: Performed By: #### 2 [id number] #### [facility] [address] [place] [address] Eosinophils (Bld) [#/Vol] 2.0 E9/L High 0.0-0.5 [facility] Comment on above: Performed By: #### 2 [id number] #### [facility] [address] [place] [address] Eosinophils/100 WBC (Bld) 21.6 % High 0.0-8.0 [facility] Comment on above: Performed By: #### 2 [id number] #### [facility] [address] [place] [address] Erythrocyte distribution width (RBC) [Ratio] 12.7 % Normal 10.9-14.2 [facility] Comment on above: Performed By: #### 2 [id number] #### [facility] [address] [place] [id number] Hematocrit (Bld) [Volume fraction] 36.8 % Normal 34.0-46.0 [facility] Comment on above: Performed By: #### 2 [id number] #### [facility] [address] [place] [address] Hemoglobin (Bld) [Mass/Vol] 12.7 g/dL Normal 12.0-16.0 [facility] Comment on above: Performed By: #### 2 [id number] #### [facility] [address] [place] [address] Lymphocytes (Bld) [#/Vol] 2.1 E9/L Normal 1.0-4.0 [facility] Comment on above: Performed By: #### 2 [id number] #### [facility] [address] [place] [address] Lymphocytes/100 WBC (Bld) 23.0 % Normal 14.0-50.0 [facility] Comment on above: Performed By: #### 2 [id number] #### [facility] [address] [place] [address] MCH (RBC) [Entitic mass] 30.7 pg Normal 27.0-34.0 [facility] Comment on above: Performed By: #### 2 [id number] #### [facility] [address] [place] [address] MCHC (RBC) [Mass/Vol] 34.5 g/dL Normal 31.4-36.0 [facility] Comment on above: Performed By: #### 2 [id number] #### [facility] [address] [place] [address] MCV (RBC) [Entitic vol] 89.0 fL Normal 80.0-100.0 [facility] Comment on above: Performed By: #### 2 [id number] #### [facility] [address] [place] [address] Monocytes (Bld) [#/Vol] 0.4 E9/L Normal 0.2-1.0 [facility] Comment on above: Performed By: #### 2 [id number] #### [facility] [address] [place] [address] Neutrophils (Bld) [#/Vol] 4.6 E9/L Normal 2.0-7.5 [facility] Comment on above: Performed By: #### 2 [id number] #### [facility] [address] [place] [address] Neutrophils/100 WBC (Bld) 51.0 % Normal 36.0-75.0 [facility] Comment on above: Performed By: #### 2 [id number] #### [facility] [address] [place] [address] Platelet mean volume (Bld) [Entitic vol] 8.0 fL Normal 6.4-10.8 [facility] Comment on above: Performed By: #### 2 [id number] #### [facility] [address] [place] [address] Platelets (Bld) [#/Vol] 227.0 E9/L Normal 150.0-500.0 [facility] Comment on above: Performed By: #### 2 [id number] #### [facility] [address] [place] [address] RBC (Bld) [#/Vol] 4.1 E12/L Low 4.3-5.9 [facility] Comment on above: Performed By: #### 2 [id number] #### [facility] [address] [place] [address] WBC corrected for nucl RBC Auto (Bld) [#/Vol] 9.1 E9/L Normal 4.0-11.0 [facility] Comment on above: Result Comment: Thea pheral smear review performed. Performed By: #### 2 [id number] #### [facility] [address] [place] [address] CHEMISTRYOrdered By: Carolina Sherman on 09-10-2024 HbA1c (Bld) [Mass fraction] 5.1 % Normal <=5.9% [facility] ChemAutoSS CHEMISTRYOrdered By: SYSTEM SYSTEM on 09-10-2024 Amphetamines Screen method >1000 ng/mL Ql (U) NEGATIVE 6 (09/10/24 12:00 PM) Normal NEGATIVE [facility] Comment on above: Interpretive Data: N egative Cutoff: <1000 ng/mL Barbiturates Screen Ql (U) NEGATIVE 7 (09/10/24 12:00 PM) Normal NEGATIVE [facility] Comment on above: Interpretive Data: N egative Cutoff: <200 ng/mL Benzodiazepines Ql (U) NEGATIVE 1 (09/10/24 12:00 PM) Normal NEGATIVE [facility] Comment on above: Interpretive Data: N egative Cutoff: <200 ng/mL Cannabinoids Screen Ql (U) NEGATIVE 5 (09/10/24 12:00 PM) Normal NEGATIVE [facility] Comment on above: Interpretive Data: N egative Cutoff: <50 ng/mL Cocaine Ql (U) NEGATIVE 2 (09/10/24 12:00 PM) Normal NEGATIVE [facility] Comment on above: Interpretive Data: N egative Cutoff: <300 ng/mL Opiates Screen Ql (U) NEGATIVE 3 (09/10/24 12:00 PM) Normal NEGATIVE [facility] Comment on above: Interpretive Data: N egative Cutoff: <300 ng/mL Phencyclidine Screen method >25 ng/mL Ql (U) NEGATIVE 4 (09/10/24 12:00 PM) Normal NEGATIVE [facility] Comment on above: Interpretive Data: N egative Cutoff: <25 ng/mL These drug screen results are to be used for medical (i.e., treatment) purposes only. Unconfirmed drug screening results must not be used for non-medical purposes (e.g., employment testing, legal testing). U Fentanyl NEGATIVE 9 (09/10/24 12:00 PM) Normal NEGATIVE [facility] Comment on above: Interpretive Data: N egative Cutoff: <5 ng/mL These drug screen results are to be used for medical (i.e., treatment) purposes only. Unconfirmed drug screening results must not be used for non-medical purposes (e.g., employment testing, legal testing). HEMATOLOGYOrdered By: SYSTEM SYSTEM on 09-10-2024 Basophils/100 WBC (Bld) 0.3 % Normal 0.0 - 2.0 % [facility] Basophils/Leukocytes Auto (Bld) [Pure # fraction] 0.0 E9/L Normal 0.0 - 0.2 E9/L [facility] Eosinophils (Bld) [#/Vol] 2.0 E9/L High 0.0 - 0.5 E9/L [facility] Eosinophils/100 WBC (Bld) 21.6 % High 0.0 - 8.0 % [facility] Erythrocyte distribution width (RBC) [Ratio] 12.7 % Normal 10.9 - 14.2 % [facility] Hematocrit (Bld) [Volume fraction] 36.8 % Normal 34.0 - 46.0 % [facility] Hemoglobin (Bld) [Mass/Vol] 12.7 g/dL Normal 12.0 - 16.0 gm/dL [facility] Lymphocytes (Bld) [#/Vol] 2.1 E9/L Normal 1.0 - 4.0 E9/L [facility] Lymphocytes/100 WBC (Bld) 23.0 % Normal 14.0 - 50.0 % [facility] MCH (RBC) [Entitic mass] 30.7 pg Normal 27.0 - 34.0 pg [facility] MCHC (RBC) [Mass/Vol] 34.5 g/dL Normal 31.4 - 36.0 gm/dL [facility] MCV (RBC) [Entitic vol] 89.0 fL Normal 80.0 - 100.0 fL [facility] Monocytes (Bld) [#/Vol] 0.4 E9/L Normal 0.2 - 1.0 E9/L [facility] Monocytes/100 WBC (Bld) 4.1 % Normal 4.0 - 14.0 % [facility] Neutrophils (Bld) [#/Vol] 4.6 E9/L Normal 2.0 - 7.5 E9/L [facility] Neutrophils/100 WBC (Bld) 51.0 % Normal 36.0 - 75.0 % [facility] Platelet mean volume (Bld) [Entitic vol] 8.0 fL Normal 6.4 - 10.8 fL [facility] Platelets (Bld) [#/Vol] 227.0 E9/L Normal 150.0 - 500.0 E9/L [facility] RBC (Bld) [#/Vol] 4.1 E12/L Low 4.3 - 5.9 E12/L [facility] WBC corrected for nucl RBC Auto (Bld) [#/Vol] 9.1 E9/L Normal 4.0 - 11.0 E9/L [facility] Comment on above: Result Comment: Thea pheral smear review performed. [id number] 09-10-2024 HbA1c (Bld) [Mass fraction] 5.1 % Normal <=5.9 [facility] Comment on above: Performed By: #### 7 [id number] #### [facility] [address] [place] [address] U Drug Screenon 09-10-2024 Amphetamines Screen method >1000 ng/mL Ql (U) Negative Normal NEGATIVE [facility] Comment on above: Result Comment: Nega tive Cutoff: <1000 ng/mL Performed By: #### 2 [id number] #### [facility] [address] [place] [address] Barbiturates Screen Ql (U) Negative Normal NEGATIVE [facility] Comment on above: Result Comment: Nega tive Cutoff: <200 ng/mL Performed By: #### 2 [id number] #### [facility] [address] [place] [address] Benzodiazepines Ql (U) Negative Normal NEGATIVE [facility] Comment on above: Result Comment: Nega tive Cutoff: <200 ng/mL Performed By: #### 2 [id number] #### [facility] [address] [place] [address] Cannabinoids Screen Ql (U) Negative Normal NEGATIVE [facility] Comment on above: Result Comment: Nega tive Cutoff: <50 ng/mL Performed By: #### 2 [id number] #### [facility] [address] [place] [address] Cocaine Ql (U) Negative Normal NEGATIVE [facility] Comment on above: Result Comment: Nega tive Cutoff: <300 ng/mL Performed By: #### 2 [id number] #### [facility] [address] [place] [address] Opiates Screen Ql (U) Negative Normal NEGATIVE [facility] Comment on above: Result Comment: Nega tive Cutoff: <300 ng/mL Performed By: #### 2 [id number] #### [facility] [address] [place] [address] Phencyclidine Screen method >25 ng/mL Ql (U) Negative Normal NEGATIVE [facility] Comment on above: Result Comment: Nega tive Cutoff: <25 ng/mL These drug screen results are to be used for medical (i.e., treatment) purposes only. Unconfirmed drug screening results must not be used for non-medical purposes (e.g., employment testing, legal testing). Performed By: #### 2 [id number] #### [facility] [address] [place] [address] U Fentanyl Negative Normal NEGATIVE [facility] Comment on above: Result Comment: Nega tive Cutoff: <5 ng/mL These drug screen results are to be used for medical (i.e., treatment) purposes only. Unconfirmed drug screening results must not be used for non-medical purposes (e.g., employment testing, legal testing). Performed By: #### 2 [id number] #### [facility] [address] [place] [address] Ambulatory Visit Summaryon 1 Ambulatory Visit Summary Ambulatory Visit Summary SHOBHA GALVAN DOB:1985 Visit Date:08/27/2024 Ambulatory Visit Instructions Your Care Team Attending Physician - Annika Mcdowell. Primary Care Physician - LICHA SIEGEL, Jason Kimball This Is Your Medications List Contact prescribing physician if questions or concerns magnesium oxide (magnesium oxide 400 mg Tab) multivitamin, ( Elite oral capsule) Procedures Performed LEEP (11/26/2012), Colposcopy, Tooth extraction, multiple. Discharge Vitals Temperature (Oral) 36.8 ?C Heart Rate (Peripheral) 102 Blood Pressure 110/62 Height 169 cm Height 67 in Weight 62.2 kg Weight 136.84 lb BMI 21.78 Medications What How Much When Instructions Unchanged magnesium oxide (magnesium oxide 400 mg Tab) TAKE 1 TABLET BY MOUTH ONCE DAILY Contact prescribing physician if questions or concerns Unchanged multivitamin, ( Elite oral capsule) 1 Capsules By Mouth Every day Contact prescribing physician if questions or concerns Allergies No Known Allergies Problems Ongoing - Any problem that you are currently receiving treatment for. 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 Please share your experience with us by completing your survey. We appreciate your feedback and thank you for choosing us for your care. [facility] Family Medicine Office/Clini c Noteon 08-27-2024 Family Medicine Office/Clinic Note Family Medicine Office/Clinic Note Chief Complaint pt here for back pain. HPI Staff patient here for back pain, congestion, onset 3 weeks. body aches, chills, slight cough, chest tightness, SOB, wheezing. History of Present Illness I have reviewed and discussed the HPI (staff) with the patient today. Information was verified and is correct. Additional information provided if needed. Pt reports to office today for acute visit with concern for back pain and congestion, chest tightness, cough, wheezing. States she had this near the end of her last and was diagnosed with costochondritis and treated with steroid, lidocaine patches, and tylenol. She is currently 11 weeks and is experiencing the same pain, chest tightness, and wheezing that she experienced last time. Has been over 3 weeks now, started with dry cough, then runny nose and sinus pressure. Denies fevers/chills, nasal congestion, sore throat, shortness of breath, heart palpitations, headaches, edema, dizziness. Was treated two weeks by OBGYN with azithromycin shortly after symptoms started and experienced no relief. She does state that the sinus pressure/congestion has improved over the last few days though. Has been taking tylenol for symptom relief along with heating pad and rest. She reports that cough/chest tightness is intermittent but is productive at times. She states that she is very cautious during regarding medications and procedures and would like to hold off as long as she can on imaging and meds. Is open to albuterol to be used as needed for wheezes and chest tightness. She will see her OBGYN next week and would like to discuss this further with him as well. Review of Systems PHQ Score Initial Depression Screen Score: 0 SCORE ROS negative unless otherwise stated in HPI. Physical Exam Vitals & Measurements T: 36.8 ?C(Oral) HR: 102(Peripheral) BP: 110/62 SpO2: 100% HT: 67 in HT: 169 cm WT: 62.2 kg WT: 136.84 lb BMI: 21.78 PHYSICAL EXAM General: Well developed, well nourished, no apparent distress Head:Normocephalic, atraumatic Eyes:EOMI, sclera clear Ears:Bilateral tympanic membranes are pearly fischer with good cone of light Nose:No deformity, discharge, inflammation or lesions Mouth:Mucosa moist. Normal oropharynx and posterior pharynx without lesions or exudate. Tongue normal. Neck:No bruit, symmetric Lungs:Lungs clear to auscultation Cardio:Regular rate and rhythm with no murmur Pulses:Pulses present in all four extremities Abdomen:Normal bowel sounds, non tender, no masses Musculoskeletal:Daphnie l ROM of extremities, self ambulating Neuro:grossly normal Skin:No abnormal skin lesions Mental Status: Alert and cooperative with appropriate mood and affect Assessment/Plan 1. URI with cough and congestion (J06.9: Acute upper respiratory infection, unspecified) Stable, improving. Vital signs stable today. Will order albuterol for wheezes/chest tightness prn. Medication education provided. Pt made are of red flags/when to report to ER for emergent medical evaluation. Pt verbalizes understanding. She will also follow closely with OBGYN for guidance regarding safe treatments and medications. She is encouraged to stay well hydrated. May continue to utilize tylenol and conservative measures for symptom management including heat, ice, and rest. Pt agreeable to this plan and will follow up in 1-2 weeks for reevaluation. Ordered: albuterol, 2 puff(s), Inhalation, q6hr, 8 gm, Refill(s) 0, [id number], 169, cm, 08/27/24 14:59:00 EDT, Height/Length Dosing, 62.2, kg, 08/27/24 14:59:00 EDT, Weight Dosing 2. First trimester (Z34.91: Encounter for supervision of normal , unspecified, first trimester) Continue to follow routinely with OBGYN. Appt with OBGYN next week. Encourage pt to use caution when taking medications, check with provider prior to starting anything new. Pt aware of s/s to report to OB regarding . 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 Never Smokele (more content not included)... Normal [facility] Comment on above: Result Comment: Elec tronically Signed By: Annika Mcdowell\.br\Date and Time Signed: 08/27/24 16:06 EDT CBC AUTO DIFFon 12-24-2022 BASO # 0.1 103/ul Normal 0.0-0.1 [facility] Comment on above: Performed By: #### C BC #### [facility] [address] [place] [address] Dr. Daya Simms Basophils/100 WBC (Bld) 0.4 % Normal 0.2-2.0 [facility] Comment on above: Performed By: #### C BC #### [facility] [address] [place] [address] Dr. Daya Simms EO # 0.1 103/ul Normal 0.0-0.7 [facility] Comment on above: Performed By: #### C BC #### [facility] [address] [place] [address] Dr. Daya Simms Eosinophils/100 WBC (Bld) 1.2 % Normal 0.9-7.0 [facility] Comment on above: Performed By: #### C BC #### [facility] [address] [place] [address] Dr. Daya Simms Erythrocyte distribution width (RBC) [Ratio] 13.3 % Normal 11.0-15.0 [facility] Comment on above: Performed By: #### C BC #### [facility] [address] [place] [address] Dr. Daya Simms Hematocrit (Bld) [Volume fraction] 28.6 % Critically low 36.0-48.0 [facility] Comment on above: Performed By: #### C BC #### [facility] [address] [place] [address] Dr. Daya Simms Hemoglobin (Bld) [Mass/Vol] 9.7 g/dL Critically low 12.0-16.0 [facility] Comment on above: Performed By: #### C BC #### [facility] [address] [place] [address] Dr. Daya Simms IG # 0.08 10e3/ul Critically high 0.00-0.03 [facility] Comment on above: Performed By: #### C BC #### [facility] [address] [place] [address] Dr. Daya Simms IG % 0.7 % Critically high 0.0-0.5 [facility] Comment on above: Performed By: #### C BC #### [facility] [address] [place] [address] Dr. Daya Simms LYMPH # 2.3 103/ul Normal 1.2-3.8 [facility] Comment on above: Performed By: #### C BC #### [facility] [address] [place] [address] Dr. Daya Simms Lymphocytes/100 WBC (Bld) 20.4 % Critically low 20.5-60.0 [facility] Comment on above: Performed By: #### C BC #### [facility] [address] [place] [address] Dr. Daya Simms MANUAL DIFF REQ NO Normal [facility] Comment on above: Performed By: #### C BC #### [facility] [address] [place] [address] Dr. Daya Simms MCH (RBC) [Entitic mass] 29.4 pg Normal 26.7-34.0 [facility] Comment on above: Performed By: #### C BC #### [facility] [address] [place] [address] Dr. Daya Simms MCHC (RBC) [Mass/Vol] 33.9 g/dL Normal 29.9-35.2 [facility] Comment on above: Performed By: #### C BC #### [facility] [address] [place] [address] Dr. Daya Simms MCV (RBC) [Entitic vol] 86.7 fL Normal 81.0-99.0 [facility] Comment on above: Performed By: #### C BC #### [facility] [address] [place] [address] Dr. Daya Simms MONO # 0.7 103/ul Normal 0.3-0.8 [facility] Comment on above: Performed By: #### C BC #### [facility] [address] [place] [address] Dr. Daya Simms Monocytes/100 WBC (Bld) 6.3 % Normal 1.7-12.0 [facility] Comment on above: Performed By: #### C BC #### [facility] [address] [place] [address] Dr. Daya Simms NEUT # 8.2 103/ul Critically high 1.4-6.5 [facility] Comment on above: Performed By: #### C BC #### [facility] [address] [place] [address] Dr. Daya Simms Neutrophils/100 WBC (Bld) 71.0 % Normal 43.0-75.0 [facility] Comment on above: Performed By: #### C BC #### [facility] [address] [place] [address] Dr. Daya Simms Platelet mean volume (Bld) [Entitic vol] 9.7 fL Normal 9.5-13.5 [facility] Comment on above: Performed By: #### C BC #### [facility] [address] [place] [address] Dr. Daya Simms PLT 200 103/ul Normal 150-450 [facility] Comment on above: Performed By: #### C BC #### [facility] [address] [place] [address] Dr. Daya Simms RBC 3.30 106/ul Critically low 4.20-5.40 [facility] Comment on above: Performed By: #### C BC #### [facility] [address] [place] [address] Dr. Daya Simms WBC 11.5 103/ul Critically high 4.0-11.0 [facility] Comment on above: Performed By: #### C BC #### [facility] [address] [place] [address] Dr. Daya Simms SCREENon 12-24-2022 SCREEN Negative Normal [facility] Comment on above: Performed By: #### C BC #### [facility] [address] [place] [address] Dr. Daya Simms CBC AUTO DIFFon 12-22-2022 BASO # 0.1 103/ul Normal 0.0-0.1 [facility] Comment on above: Performed By: #### C BC #### [facility] [address] [address] [address] Daya Simms Basophils/100 WBC (Bld) 0.5 % Normal 0.2-2.0 [facility] Comment on above: Performed By: #### C BC #### [facility] [address] [place] [address] Dr. Daya Simms EO # 0.1 103/ul Normal 0.0-0.7 [facility] Comment on above: Performed By: #### C BC #### [facility] [address] [place] [address] Dr. Daya Simms Eosinophils/100 WBC (Bld) 0.7 % Critically low 0.9-7.0 [facility] Comment on above: Performed By: #### C BC #### [facility] [address] [place] [address] Dr. Daya Simms Erythrocyte distribution width (RBC) [Ratio] 13.1 % Normal 11.0-15.0 [facility] Comment on above: Performed By: #### C BC #### [facility] [address] [place] [address] Dr. Daya Simms Hematocrit (Bld) [Volume fraction] 37.5 % Normal 36.0-48.0 [facility] Comment on above: Performed By: #### C BC #### [facility] [address] [place] [address] Dr. Daya Simms Hemoglobin (Bld) [Mass/Vol] 13.5 g/dL Normal 12.0-16.0 [facility] Comment on above: Performed By: #### C BC #### [facility] [address] [place] [address] Dr. Daya Simms IG # 0.06 10e3/ul Critically high 0.00-0.03 [facility] Comment on above: Performed By: #### C BC #### [facility] [address] [place] [address] Dr. Daya Simms IG % 0.5 % Normal 0.0-0.5 [facility] Comment on above: Performed By: #### C BC #### [facility] [address] [place] [address] Dr. Daya Simms LYMPH # 2.9 103/ul Normal 1.2-3.8 [facility] Comment on above: Performed By: #### C BC #### [facility] [address] [place] [address] Dr. Daya Simms Lymphocytes/100 WBC (Bld) 22.1 % Normal 20.5-60.0 [facility] Comment on above: Performed By: #### C BC #### [facility] [address] [place] [address] Dr. Daya Simms MANUAL DIFF REQ NO Normal [facility] Comment on above: Performed By: #### C BC #### [facility] [address] [place] [address] Dr. Daya Simms MCH (RBC) [Entitic mass] 29.8 pg Normal 26.7-34.0 [facility] Comment on above: Performed By: #### C BC #### [facility] [address] [place] [address] Dr. Daya Simms MCHC (RBC) [Mass/Vol] 36.0 g/dL Critically high 29.9-35.2 [facility] Comment on above: Performed By: #### C BC #### [facility] [address] [place] [address] Dr. Daya Simms MCV (RBC) [Entitic vol] 82.8 fL Normal 81.0-99.0 [facility] Comment on above: Performed By: #### C BC #### [facility] [address] [place] [address] Dr. Daya Simms MONO # 0.9 103/ul Critically high 0.3-0.8 [facility] Comment on above: Performed By: #### C BC #### [facility] [address] [place] [address] Dr. Daya Simms Monocytes/100 WBC (Bld) 6.6 % Normal 1.7-12.0 [facility] Comment on above: Performed By: #### C BC #### [facility] [address] [address] [address] Daya Simms NEUT # 9.3 103/ul Critically high 1.4-6.5 [facility] Comment on above: Performed By: #### C BC #### [facility] [address] [id number] Daya Simms Neutrophils/100 WBC (Bld) 69.6 % Normal 43.0-75.0 [facility] Comment on above: Performed By: #### C BC #### [facility] [address] [place] [address] Dr. Daya Simms Platelet mean volume (Bld) [Entitic vol] 9.5 fL Normal 9.5-13.5 [facility] Comment on above: Performed By: #### C BC #### [facility] [address] [place] [address] Dr. Daya Simms PLT 313 103/ul Normal 150-450 [facility] Comment on above: Performed By: #### C BC #### [facility] [address] [place] [address] Dr. Daya Simms RBC 4.53 106/ul Normal 4.20-5.40 [facility] Comment on above: Performed By: #### C BC #### [facility] [address] [place] [address] Dr. Daya Simms WBC 13.3 103/ul Critically high 4.0-11.0 [facility] Comment on above: Performed By: #### C BC #### [facility] [address] [place] [address] Dr. Daya Simms CULTURE URINEon 12-22-2022 CULTURE URINE Culture Observations : NO GROWTH. Normal [facility] Comment on above: Performed By: #### U RCX #### [facility] [address] [place] [address] Dr. Daya Simms DRUG SCREEN RAPID (URINE)on 12-22-2022 AMP Negative Normal NEGATIVE [facility] Comment on above: Performed By: #### D RUGRPD #### [facility] [address] [place] [address] Dr. Daya Simms BAR Negative Normal NEGATIVE [facility] Comment on above: Performed By: #### D RUGRPD #### [facility] [address] [place] [address] Dr. Daya Simms BUP Negative Normal NEGATIVE [facility] Comment on above: Performed By: #### D RUGRPD #### [facility] [address] [place] [address] Dr. Daya Simms BZO Negative Normal NEGATIVE [facility] Comment on above: Performed By: #### D RUGRPD #### [facility] [address] [place] [address] Dr. Daya Simms MOY Negative Normal NEGATIVE [facility] Comment on above: Performed By: #### D RUGRPD #### [facility] [address] [place] [address] Dr. Daya Simms CUT-OFFS SEE BELOW Normal [facility] Comment on above: Result Comment: AMP (Amphetamine): 500ng/mL, BAR (Barbituates): 200 ng/mL, BZO (Benzodiazepines): 150 ng/mL, BUP (Buprenorphine): 10 ng/mL, MOY (Cocaine): 150 ng/mL, mAMP (Methamphetamine): 500 ng/mL, MTD (Methadone): 200 ng/mL, OPI (Opiates): 100 ng/mL, OXY (Oxycodone): 100 ng/mL, PCP (Phencyclidine): 25 ng/mL, PPX (Propoxyphene): 300 ng/mL, THC (Cannabinoids): 50 ng/mL, TCA (Trycyclic Antidepressants): 300 ng/mL Performed By: #### D RUGRPD #### [facility] [address] [place] [address] Dr. Daya Simms DRUG CUT HEADER DRUG CLASS TEST SYSTEM CUT-OFF CONCENTRATIONS ARE FOLLOWS: Normal [facility] Comment on above: Performed By: #### D RUGRPD #### [facility] [address] [place] [address] Dr. Daya Simms mAMP Negative Normal NEGATIVE [facility] Comment on above: Performed By: #### D RUGRPD #### [facility] [address] [place] [address] Dr. Daya Simms MTD Negative Normal NEGATIVE [facility] Comment on above: Performed By: #### D RUGRPD #### [facility] [address] [address] [address] Daya Simms OPI Negative Normal NEGATIVE [facility] Comment on above: Performed By: #### D RUGRPD #### [facility] [address] [place] [address] Dr. Daya Simms OXY Negative Normal NEGATIVE [facility] Comment on above: Performed By: #### D RUGRPD #### [facility] [address] [place] [address] Dr. Daya Simms PCP Negative Normal NEGATIVE [facility] Comment on above: Performed By: #### D RUGRPD #### [facility] [address] [place] [address] Dr. Daya Simms PPX Negative Normal NEGATIVE [facility] Comment on above: Performed By: #### D RUGRPD #### [facility] [address] [place] [address] Dr. Daya Simms TCA Negative Normal NEGATIVE [facility] Comment on above: Performed By: #### D RUGRPD #### [facility] [address] [place] [address] Dr. Daya Simms THC Negative Normal NEGATIVE [facility] Comment on above: Performed By: #### D RUGRPD #### [facility] [address] [place] [address] Dr. Daya Simms TYPE AND SCREENon 12-22-2022 TYPE AND SCREEN Negative Normal [facility] Comment on above: Performed By: #### T NS #### [facility] [address] [place] [address] Dr. Daya Simms UA (CLEAN/CATCH) CERTIFIED TECHNICIAN SPECIALIST/MICRO I F IND.on 12-22-2022 Bilirubin Ql (U) Negative Normal NEGATIVE [facility] Comment on above: Performed By: #### C BC #### [facility] [address] [place] [address] Dr. Daya Simms Clarity (U) CLEAR Normal CLEAR [facility] Comment on above: Performed By: #### C BC #### [facility] [address] [address] [address] Daya Simms Color (U) LT. YELLOW Normal YELLOW [facility] Comment on above: Performed By: #### C BC #### [facility] [address] [place] [address] Dr. Daya Simms Glucose Ql (U) Negative Normal NEGATIVE [facility] Comment on above: Performed By: #### C BC #### [facility] [address] [place] [address] Dr. Daya Simms Hemoglobin Ql (U) MODERATE Abnormal NEGATIVE [facility] Comment on above: Performed By: #### C BC #### [facility] [address] [place] [address] Dr. Daya Simms Ketones Ql (U) Negative Normal NEGATIVE [facility] Comment on above: Performed By: #### C BC #### [facility] [address] [place] [address] Dr. Daya Simms LEUKOCYTES MODERATE Abnormal NEGATIVE [facility] Comment on above: Performed By: #### C BC #### [facility] [address] [place] [address] Dr. Daya Simms Nitrite Ql (U) Negative Normal NEGATIVE [facility] Comment on above: Performed By: #### C BC #### [facility] [address] [place] [address] Dr. Daya Simms pH (U) 7.0 [pH] Normal 5-9 [facility] Comment on above: Performed By: #### C BC #### [facility] [address] [place] [address] Dr. Daya Simms SPEC GRAVITY <=1.005 Abnormal 1.005-<=1.02 5 [facility] Comment on above: Performed By: #### C BC #### [facility] [address] [place] [address] Dr. Daya Simms UA PROTEIN Negative Normal NEGATIVE/ TRACE [facility] Comment on above: Performed By: #### C BC #### [facility] [address] [place] [address] Dr. Daya Simms UR MICRO IND INDICATED Normal [facility] Comment on above: Performed By: #### C BC #### [facility] [address] [place] [address] Dr. Daya Simms Urobilinogen Qn (U) 0.2 {Marily'U}/dL Normal 0.2 - 1. 0 [facility] Comment on above: Performed By: #### C BC #### [facility] [address] [place] [address] Dr. Daya Simms URINE MICROSCOPIC ONLYon BACTERIA SMALL Abnormal NONE SEEN [facility] Comment on above: Performed By: #### C BC #### [facility] [address] [place] [address] Dr. Daya Simms Bacteria identified Cx Nom (U) INDICATED Normal [facility] Comment on above: Performed By: #### C BC #### [facility] [address] [place] [address] Dr. Daya Simms CAST NONE SEEN Normal NONE SEEN [facility] Comment on above: Performed By: #### C BC #### [facility] [address] [place] [address] Dr. Daya Simms Crystals LM Nom (Urine sed) NONE SEEN Normal NONE SEEN [facility] Comment on above: Performed By: #### C BC #### [facility] [address] [place] [address] Dr. Daya Simms Epithelial cells LM Ql (Urine sed) MODERATE Abnormal NONE SEEN /RARE [facility] Comment on above: Performed By: #### C BC #### [facility] [address] [place] [address] Dr. Daya Simms MUCOUS NONE SEEN Normal NONE SEEN [facility] Comment on above: Performed By: #### C BC #### [facility] [address] [place] [address] Dr. Daya Simms RBC 2-5 Abnormal 0-2 [facility] Comment on above: Performed By: #### C BC #### [facility] [address] [place] [address] Dr. Daya Simms WBC 5-10 Abnormal NONE SEEN [facility] Comment on above: Performed By: #### C BC #### [facility] [address] [id number] Daya Simms GROUP B STREP CULTUREon 11-26 S. agalactiae Ag Ql (Unsp spec) Culture Observations: NEGATIVE FOR GROUP B STREPTOCOCCUS. Normal [facility] Comment on above: Performed By: #### C BC #### [facility] Laboratory [address] [address] [address] Daya Simms CHEMISTRYOrdered By: SYSTEM SYSTEM on 11-23-2022 Albumin [...] mg/dL Low 8.9 - 11. 1 mg/dL [facility] Chloride [Moles/Vol] 106 mmol/L Normal 101 - 1 11 mmol/L [facility] CO2 [Moles/Vol] 21 mmol/L Normal 21 - 31 mmol/L [facility] Creatinine [Mass/Vol] 0.5 mg/dL Normal 0.5 - 1.3 mg/dL [facility] GFR/1.73 sq M.predicted among blacks MDRD (S/P/Bld) [Vol rate/Area] mL/min/1.73 m2 Normal >=59mL/min/1 .73 m2 [facility] S GFR/1.73 sq M.predicted among non-blacks MDRD (S/P/Bld) [Vol rate/Area] mL/min/1.73 m2 Normal >=59mL/min/1 .73 m2 [facility] Chem S Globulin (S) [...] 6 mg/dL Normal 5 - 21 mg/dL [facility] Urea nitrogen/Creatinine [Mass ratio] 12 mg/mg Normal 10 - 20 [facility] HEMATOLOGYOrdered By: SYSTEM SYSTEM on 11-23-2022 Basophils/100 WBC (Bld) 1.2 % Normal 0.0 - 2.0 % [facility] HemeAutoSS Basophils/Leukocytes Auto (Bld) [Pure # fraction] 0.1 E9/L Normal 0.0 - 0.2 E9/L [facility] HemeAutoSS Eosinophils/100 WBC (Bld) 1.9 % Normal 0.0 - 8.0 % [facility] HemeAutoSS Eosinophils/Leukocyte s Auto (Bld) [Pure # fraction] 0.2 E9/L Normal 0.0 - 0.5 E9/L [facility] HemeAutoSS Lymphocytes/100 WBC (Bld) 24.6 % Normal 14.0 - 50.0 % [facility] HemeAutoSS Lymphocytes/Leukocyte s Auto (Bld) [Pure # fraction] 2.4 E9/L Normal 1.0 - 4.0 E9/L [facility] HemeAutoSS Monocytes/100 WBC (Bld) 6.4 % Normal 4.0 - 14.0 % [facility] HemeAutoSS Monocytes/Leukocytes Auto (Bld) [Pure # fraction] 0.6 E9/L Normal 0.2 - 1.0 E9/L [facility] HemeAutoSS Neutrophils/100 WBC (Bld) 65.9 % Normal 36.0 - 75.0 % [facility] HemeAutoSS Neutrophils/Leukocyte s Auto (Bld) [Pure # fraction] 6.5 E9/L [...] 7.6 fL Normal 6.4 - 10.8 fL [facility] HemeAutoSS Platelets (Bld) [#/Vol] 298.0 E9/L Normal 150.0 - 500.0 E9/L [facility] HemeAutoSS RBC (Bld) [#/Vol] 4.1 E12/L Low 4.3 - 5.9 E12/L [facility] HemeAutoSS WBC corrected for nucl RBC Auto (Bld) [#/Vol] 9.8 E9/L Normal 4.0 - 11.0 E9/L [facility] HemeAutoSS TYPE AND SCREENon 11-16-2022 TYPE AND SCREEN Negative Normal [facility] Comment on above: Performed By: #### T NS #### [facility] [address] [place] [address] Dr. Daya Simms GLUCOSE - 1HRon 10-14-2022 Glucose [Mass/Vol] 118 mg/dL Critically high 74-106 T he [facility] Comment on above: Performed By: #### G LU1HR #### [facility] [address] [place] [address] Dr. Daya Simms PAP ACOG PANEL 2: 30 to 65on 10-05-2022 . . Normal [facility] Comment on above: Result Comment: Perf ormed at: WB Performed By: #### C BC #### [facility] [address] [address] [address] Daya Simms Age Gdln ACOG Testing 30-65 Normal [facility] Comment on above: Performed By: #### C BC #### [facility] [address] [place] [address] Dr. Daya Simms DIAGNOSIS: Comment Normal [facility] Comment on above: Result Comment: NEGA TIVE FOR INTRAEPITHELIAL LESION OR MALIGNANCY. FUNGAL ORGANISMS MORPHOLOGICALLY CONSISTENT WITH BRANDY SPECIES ARE PRESENT. Performed at: WB Performed By: #### C BC #### [facility] [address] [place] [address] Dr. Daya Simms HPV Aptima Negative Normal Negative [facility] Comment on above: Result Comment: This nucleic acid amplification test detects fourteen high-risk HPV types (16,18,31,33,35,39,45,51,52,56,58,59,66,68) without differentiation. Performed at: =G Performed By: #### C BC #### [facility] [address] [place] [address] Dr. Daya Simms HPV Genotype Reflex Comment Normal [facility] Comment on above: Result Comment: Crit eria not met, HPV Genotype not performed. Performed at: WB Performed By: #### C BC #### [facility] [address] [place] [address] Dr. Daya Simms Methodology: Comment Normal [facility] Comment on above: Result Comment: This liquid based ThinPrep(R) pap test was screened with the use of an image guided system. Performed at: WB Performed By: #### C BC #### [facility] [address] [place] [address] Dr. Daya Simms Note: Comment Normal [facility] Comment on above: Result Comment: The Pap smear is a screening test designed to aid in the detection of premalignant and malignant conditions of the uterine cervix. It is not a diagnostic procedure and should not be used as the sole means of detecting cervical cancer. Both false-positive and false-negative reports do occur. . Performed at: WB Performed By: #### C BC #### [facility] [address] [place] [address] Dr. Daya Simms Performed by: Comment Normal [facility] Comment on above: Result Comment: Marisa Flores, Second Steward (ASCP) Performed at: WB Performed By: #### C BC #### [facility] [address] [place] [address] Dr. aDya Simms Specimen adequacy: Comment Normal [facility] Comment on above: Result Comment: Sati sfactory for evaluation. No endocervical component is identified. Performed at: WB Performed By: #### C BC #### [facility] [address] [place] [address] Dr. Daya Simms VAGINITIS/VAGINOSIS DNA PROB Deep 09-30-2022 Brandy species Positive Abnormal Negative [facility] Comment on above: Performed By: #### H BSANS #### [facility] [address] [place] [address] Dr. Daya Simms Gardnerella vaginalis Negative Normal Negative [facility] Comment on above: Performed By: #### H BSANS #### [facility] [address] [place] [address] Dr. Daya Simms Trichomonas vaginalis Negative Normal Negative [facility] Comment on above: Performed By: #### H BSANS #### [facility] [address] [place] [address] Dr. Daya Simms CHLAMYDIA/GONOCOCCUS ASAEL (SW AB/URINE/PAPon 09-29-2022 Chlamydia trachomatis, ASAEL Negative Normal Negative [facility] Comment on above: Performed By: #### H BSANS #### [facility] [address] [place] [address] Dr. Daya Simms Neisseria gonorrhoeae, ASAEL Negative Normal Negative [facility] Comment on above: Performed By: #### H BSANS #### [facility] [address] [address] [address] Daya Simms US PREG ANATOMY SINGLEon US PREG ANATOMY SINGLE EXAMINATION: US PREG ANATOMY SINGLE HISTORY: anatomy study COMPARISON: No [...] RUTH VALENTINE Date: 2022-08-22 17:27 Normal [facility] HEP B SURFACE ANTIGEN SCREEN on 07-04-2022 HBsAg Screen Negative Normal Negative [facility] Comment on above: Performed By: #### H BSANS #### [facility] [address] [place] [address] Dr. Daya Simms HEPATITIS C VIRUS AB W/ REFL EX QUANTon 07-04-2022 HCV AB <0.1 Normal 0.0-0.9 [facility] Comment on above: Performed By: #### C BC #### [facility] [address] [place] [address] Dr. Daya Simms Interpretation: Comment Normal [facility] Comment on above: Result Comment: Nega tive Not infected with HCV, unless recent infection is suspected or other evidence exists to indicate HCV infection. Performed By: #### C BC #### [facility] [address] [place] [address] Dr. Daya Simms HIV 1 AND 2 WITH REFLEXon HIV Screen 4th Generation wRfx Non-Reactive Normal Non Reactive [facility] Comment on above: Result Comment: HIV Negative HIV-1/HIV-2 antibodies and HIV-1 p24 antigen were NOT detected. There is no laboratory evidence of HIV infection. Performed By: #### H BSANS #### [facility] [address] [place] [address] Dr. Daya Simms RPR QUANTon 07-04-2022 Rapid Plasma Reagin, Quant Non-Reactive Normal NonRea<1:1 [facility] Comment on above: Result Comment: Va rae Note: This test does not meet current guidelines for screening and diagnosis of syphilis. This test is intended for following treatment response in patients being treated for syphilis infection. To screen for syphilis infection, a reflex cascade that includes both RPR and a treponema-specific assay should be utilized, such as Treponema pallidum (Syphilis) Screening [place] (821855) or Rapid Plasma Reagin (RPR) Test With Reflex to Quantitative RPR and Confirmatory Treponema pallidum Antibodies (094738). Performed By: #### R PRQ #### [facility] [address] [place] [address] Dr. Daya Simms RUBELLA AB IGGon 07-04-2022 Rubella Antibodies, IgG 25.70 index Normal Immune >0.99 [facility] Comment on above: Result Comment: Non- immune <0.90 Equivocal 0.90 - 0.99 Immune >0.99 Performed By: #### H BSANS #### [facility] [address] [place] [address] Dr. Daya Simms CBC AUTO DIFFon 07-03-2022 BASO # 0.0 103/ul Normal 0.0-0.1 [facility] Comment on above: Performed By: #### C BC #### [facility] [address] [place] [address] Dr. Daya Simms Basophils/100 WBC (Bld) 0.5 % Normal 0.2-2.0 [facility] Comment on above: Performed By: #### C BC #### [facility] [address] [place] [address] Dr. Daya Simms EO # 0.2 103/ul Normal 0.0-0.7 [facility] Comment on above: Performed By: #### C BC #### [facility] [address] [place] [address] Dr. Daya Simms Eosinophils/100 WBC (Bld) 3.2 % Normal 0.9-7.0 [facility] Comment on above: Performed By: #### C BC #### [facility] [address] [place] [address] Dr. Daya Simms Erythrocyte distribution width (RBC) [Ratio] 13.4 % Normal 11.0-15.0 [facility] Comment on above: Performed By: #### C BC #### [facility] [address] [place] [address] Dr. Daya Simms Hematocrit (Bld) [Volume fraction] 42.0 % Normal 36.0-48.0 [facility] Comment on above: Performed By: #### C BC #### [facility] [address] [place] [address] Dr. Daya Simms Hemoglobin (Bld) [Mass/Vol] 13.9 g/dL Normal 12.0-16.0 [facility] Comment on above: Performed By: #### C BC #### [facility] [address] [place] [address] Dr. Daya Smims IG # 0.02 10e3/ul Normal 0.00-0.03 [facility] Comment on above: Performed By: #### C BC #### [facility] [address] [place] [address] Dr. Daya Simms IG % 0.3 % Normal 0.0-0.5 [facility] Comment on above: Performed By: #### C BC #### [facility] [address] [place] [address] Dr. Daya Simms LYMPH # 1.5 103/ul Normal 1.2-3.8 [facility] Comment on above: Performed By: #### C BC #### [facility] [address] [place] [address] Dr. Daya Simms Lymphocytes/100 WBC (Bld) 20.0 % Critically low 20.5-60.0 [facility] Comment on above: Performed By: #### C BC #### [facility] [address] [place] [address] Dr. Daya Simms MANUAL DIFF REQ NO Normal [facility] Comment on above: Performed By: #### C BC #### [facility] [address] [place] [address] Dr. Daya Simms MCH (RBC) [Entitic mass] 29.7 pg Normal 26.7-34.0 [facility] Comment on above: Performed By: #### C BC #### [facility] [address] [place] [address] Dr. Daya Simms MCHC (RBC) [Mass/Vol] 33.1 g/dL Normal 29.9-35.2 [facility] Comment on above: Performed By: #### C BC #### [facility] [address] [place] [address] Dr. Daya Simms MCV (RBC) [Entitic vol] 89.7 fL Normal 81.0-99.0 [facility] Comment on above: Performed By: #### C BC #### [facility] [address] [place] [address] Dr. Daya Simms MONO # 0.4 103/ul Normal 0.3-0.8 [facility] Comment on above: Performed By: #### C BC #### [facility] [address] [place] [address] Dr. Daya Simms Monocytes/100 WBC (Bld) 4.8 % Normal 1.7-12.0 [facility] Comment on above: Performed By: #### C BC #### [facility] [address] [place] [address] Dr. Daya Simms NEUT # 5.4 103/ul Normal 1.4-6.5 [facility] Comment on above: Performed By: #### C BC #### [facility] [address] [place] [address] Dr. Daya Simms Neutrophils/100 WBC (Bld) 71.2 % Normal 43.0-75.0 [facility] Comment on above: Performed By: #### C BC #### [facility] [address] [place] [address] Dr. Daya Simms Platelet mean volume (Bld) [Entitic vol] 9.2 fL Critically low 9.5-13.5 [facility] Comment on above: Performed By: #### C BC #### [facility] [address] [place] [address] Dr. Daya Simms PLT 232 103/ul Normal 150-450 [facility] Comment on above: Performed By: #### C BC #### [facility] [address] [place] [address] Dr. Daya Simms RBC 4.68 106/ul Normal 4.20-5.40 [facility] Comment on above: Performed By: #### C BC #### [facility] [address] [place] [address] Dr. Daya Simms WBC 7.6 103/ul Normal 4.0-11.0 [facility] Comment on above: Performed By: #### C BC #### [facility] [address] [place] [address] Dr. Daya Simms CULTURE URINEon 07-03-2022 CULTURE URINE Culture Observations : LIGHT GROWTH OF MIXED GENITAL JERRY. NO POTENTIAL PATHOGENS SEEN. Normal [facility] Comment on above: Performed By: #### U RCX #### [facility] [address] [place], [place] [id number] Dr. Daya Simms GLYCOHEMOGLOBIN A1Con 2021 ADA RECOMMENDATION SEE BELOW Normal [facility] Comment on above: Result Comment: ADA RECOMMENDED LIMIT 4.0 - 6.0 ADA THERAPEUTIC TARGET < 7.0 ACTION SUGGESTED > 7.0 Performed By: #### H BSANS #### [facility] [address] [address] [address] Daya Simms Glucose [Mass/Vol] 74 mg/dL Normal [facility] Comment on above: Performed By: #### H BSANS #### [facility] [address] [address] [address] Daya Simms HbA1c (Bld) [Mass fraction] 4.2 % Critically low 4.5-6.2 [facility] Comment on above: Performed By: #### H BSANS #### [facility] [address] [place] [address] Dr. Daya Simms TYPE AND SCREENon 07-03-2022 TYPE AND SCREEN Negative Normal [facility] Comment on above: Performed By: #### T NS #### [facility] [address] [place] [address] Dr. Daya Simms US PREG TVon 06-16-2022 [...] by: VALDEMAR CHE Date: 2022-06-16 16:15 Normal [facility] Vital Signs Date Time Vital Sign Value Performing Clinician Facility 09-15-2024 15:54-0400 Body mass index (BMI) [Ratio] 22.64 kg/m2 Anjum Los DO Work Phone: [facility] 09-15-2024 15:54-0400 Body weight 62.2 kg Anjum Los DO Work Phone: [facility] 09-15-2024 15:54-0400 Diastolic blood pressure 64 mm[Hg] Anjum Los DO Work Phone: [facility] 09-15-2024 15:54-0400 Systolic blood pressure 120 mm[Hg] Anjum Los DO Work Phone: [facility] 08-27-2024 14:50-0400 Blood Pressure Location Annika Browncross [facility] 08-27-2024 14:50-0400 Body temperature 98.24 [degF] Annika Browncross [facility] 08-27-2024 14:50-0400 Diastolic blood pressure 62 mm[Hg] Annika Browncross [facility] 08-27-2024 14:50-0400 Heart rate 102 /min Annika Browncross [facility] 08-27-2024 14:50-0400 SaO2% (BldA) [Mass fraction] 100 % Annika Thompson [facility] 08-27-2024 14:50-0400 Systolic blood pressure 110 mm[Hg] Annika Browncross [facility] 01-03-2023 10:57-0500 Diastolic blood pressure 68 mm[Hg] Violeta Missler [facility] 01-03-2023 10:57-0500 Heart rate 93 /min Violeta Missler [facility] 01-03-2023 10:57-0500 Respiratory rate 18 /min Violeta Missler [facility] 01-03-2023 10:57-0500 SaO2% (BldA) [Mass fraction] 98 % Violeta Arce [facility] 01-03-2023 10:57-0500 Systolic blood pressure 116 mm[Hg] Violeta Arce [facility] 11-23-2022 04:08-0500 Diastolic blood pressure 70 mm[Hg] Vinod Ulysses [facility] 11-23-2022 04:08-0500 Heart rate 91 /min Vinod Ulysses [facility] 11-23-2022 04:08-0500 Respiratory rate 20 /min Vinod Ulysses [facility] 11-23-2022 04:08-0500 SaO2% (BldA) [Mass fraction] 99 % Vinod Ulysses [facility] 11-23-2022 04:08-0500 Systolic blood pressure 122 mm[Hg] Vinod Ulysses [facility] 11-23-2022 01:55-0500 Body temperature 97.52 [degF] Vinod Ulysses [facility] 11-23-2022 01:55-0500 Diastolic blood pressure 83 mm[Hg] Vinod Ulysses [facility] 11-23-2022 01:55-0500 Heart rate 97 /min Vinod Ulysses [facility] 11-23-2022 01:55-0500 Respiratory rate 20 /min Vinod Ulysses [facility] 11-23-2022 01:55-0500 SaO2% (BldA) [Mass fraction] 99 % Vinod Ulysses [facility] 11-23-2022 01:55-0500 Systolic blood pressure 127 mm[Hg] Vinod Arora [facility] Encounters Encounter Date Encounter Type Care Provider Facility Start: 09-15-2024 End: 09-15-2024 flow sheet Anjum Los DO Work Phone: [facility] Comment on above: 13 weeks gestation o f ; Urinary tract infection without hematuria, site unspecified; Axillary lump, bilateral Start: 09-15-2024 End: 09-15-2024 ambulatory ANJUM LOS Not Available Start: 09-10-2024 End: 09-10-2024 ambulatory Anjum R LOS Facility:[facility] Start: 09-10-2024 End: 09-10-2024 Patient encounter procedure Anjum R LOS [facility] Start: 09-08-2024 End: 09-08-2024 ambulatory Annika Thompson Facility:[facility] Start: 09-08-2024 End: 09-08-2024 Patient encounter procedure Annika Thompson [facility] Start: 08-27-2024 End: 08-27-2024 ambulatory Annika Thompson Facility:[facility] Start: 08-27-2024 End: 08-27-2024 Patient encounter procedure Annika Thompson [facility] Start: 08-14-2024 End: 08-14-2024 ambulatory ANJUM LOS Not Available Start: 10-08-2023 End: 10-08-2023 ambulatory ANJUM LOS Not Available Start: 01-03-2023 End: 01-03-2023 Patient encounter procedure Violeta Arce [facility] Start: 12-22-2022 End: 12-24-2022 Evaluation and management of inpatient DR MALLORY MORELOS Facility:[facility] Start: 12-14-2022 End: 12-14-[address] ANJUM MADISON Facility:[facility] Start: 11-23-2022 End: 11-23-2022 Emergency department patient visit Vinod Arora [facility] Start: 11-16-2022 End: 11-16-[address] ANJUM MADISON Facility:[facility] Start: 10-14-2022 End: 10-15-[address] KARLA ARROYO Facility:[facility] Start: 09-28-2022 End: 09-28-[address] ANJUM MADISON Facility:[facility] Start: 08-22-2022 End: 08-23-[address] RUTH VALENTINE Facility:[facility] Start: 07-03-2022 End: 07-04-[address] ANJUM MADISON Facility:[facility] Start: 06-16-2022 End: 06-17-[address] ANJUM MADISON Facility:[facility] Procedures Date Procedure Procedure Detail Performing Clinician Start: 12-23-2022 Delivery of Products of Conception, External Approach DR ANJUM MADISON Start: 12-23-2022 Division of Female P erineum, External Approach DR AJNUM MADISON Start: 12-23-2022 Repair Perineum Musc le, Open Approach DR ANJUM MADISON Start: 11-26-2012 Loop electrosurgical excision procedure Vinod Arora Colposcopy Vinod Arora Comment on above: 2007, 2012, 2014 Tooth extraction, multiple K sharmaine Arora Comment on above: wisdom teeth Plan of Treatment Date Care Activity Detail Author Start: 10-16-2024 End: 10-16-2024 Patient encounter procedure 10/16/2024 3:20 PM EST Routine [facility] [address] [place] [address] Richa Mortensen PA [address] [place] [address] [facility] Start: 2017 Screening for malign ant neoplasm of cervix [facility] Start: 2008 Screening for malign ant neoplasm of cervix Pap Smear [facility] Immunizations Immunization Date Immunization Notes Care Provider Fa cility 09-14-2021 influenza virus vaccine, unspecified formulation Violeta Arce [facility] 04-29-2021 SARS-CoV-2 (COVID-19 ) mRNA-1273 vaccine Vinod Arora [facility] Comment on above: Result Comment: [facility] 04-01-2021 SARS-CoV-2 (COVID-19 ) mRNA-1273 vaccine Vinod Arora [facility] Comment on above: Result Comment: [facility] 09-21-2020 influenza virus vaccine, unspecified formulation Violeta Arce [facility] 09-06-2020 influenza virus vaccine, unspecified formulation Vinod Arora [facility] 11-12-2013 HPV, unspecified formulation Violeta Arce [facility] 07-16-2013 HPV, unspecified formulation Violeta rAce [facility] 05-14-2013 HPV, unspecified formulation Violeta Arce [facility] 09-10-2011 tetanus toxoid, redu arnoldo diphtheria toxoid, and acellular pertussis vaccine, adsorbed Vinod Ulysses [facility] Payers Date Payer Category Payer Private Health Insurance [employer] [id number] 1987 Unknown [id number] [id number]. 593 1987 Unknown [id number] 2.16.840.1.734462.3.579.2. 593 1987 Unknown [id number] 2.16.840.1.073298.3.579.2. 593 1987 Unknown [id number] 2.16.840.1.818439.3.579.2. 593 1987 Unknown [id number] 2.16840.1.799591.3.579.2. 593 1987 Unknown [id number] 2.16.840.1.973619.3.579.2. 593 1987 Unknown [id number] 2.16.840.1.183049.3.579.2. 593 1987 Unknown [id number] 2.16.840.1.755164.3.579.2. 593 1987 Unknown [id number] 2.16.840.1.535265.3.579.2. 727 1987 Unknown [id number] 2.16.840.1.748050.3.579.2. 727 1987 Unknown [id number] 2.16.840.1.567167.3.579.2. 727 1987 Unknown [id number] 2.16.840.1.703723.3.579.2. 1259 1987 Unknown [id number] 2.16.840.1.003849.3.579.2. 1259 1987 Unknown [id number] 2.16.840.1.229505.3.579.2. 1259 1959 Unknown [id number] 1959 Unknown [id number] Social History Date Type Detail Facility Tobacco Never smoker [facility] Comment on above: Denies. Tobacco smoking status No Smokin g Status Entered [facility] Start: 09-24-2023 Sex Assigned At Female F [facility] Start: 01-03-2023 End: 09-24-2023 Tobacco smoking status Never smoked tobacco (finding) [facility] Tobacco smoking status Never [facility] [facility] Start: 09-15-2024 Alcoholic beverage intake Current drinker of alcohol (finding) [facility] Start: 09-24-2023 History of Social function [facility] Start: 09-24-2023 Alcohol Comment caffeine: 2-3 cups per day [facility] Start: 06-24-2024 [facility] Start: 1985 Sex assigned at Not on file [facility] Functional Status Date Assessment Result Facility 08-27-2024 Functional Status N/A [facility] 01-03-2023 Functional Status N/A [facility] 11-23-2022 Functional Status N/A [facility] Clinical Notes 11-23-2022 to 09-15-2024 Sanam Bustamante LPN - 09/15/2024 3:20 PM EDT Note Date & Type Note Facility 09-15-2024 History of Present illness Narrative Reason for Appointment: Patient ID: Shobha Galvan is a 39 y.o. female who presents for Routine Visit Patient presents today for Return OB appointment. MEDICATIONS Current Outpatient Medications Medication Instructions Albuterol-Budesonide 90-80 MCG/ACT aerosol 2 puff(s), Inhalation, q6hr, 8 gm, Refill(s) 0, [id number], 169, cm, 08/27/24 14:59:00 EDT, Height/Length Dosing, 62.2, kg, 08/27/24 14:59:00 EDT, Weight Dosing azithromycin (Zithromax Z-Dennis) 250 MG tablet As directed magnesium oxide (MAG-OX) 400 mg, Oral, Daily magnesium oxide (MAG-OX) 400 mg, Daily Hfhwhyok-Xgr-Pr-FA ( 1 + IRON PO) ALLERGIES No Known Allergies PROBLEMS Active Ambulatory Problems Diagnosis Date Noted No Active Ambulatory Problems Resolved Ambulatory Problems Diagnosis Date Noted No Resolved Ambulatory Problems Past Medical History: Diagnosis Date Anemia Lump of breast, right Migraines (CMS/HCC) HISTORY PAST MEDICAL HISTORY SOCIAL HISTORY Past Medical History: Diagnosis Date Anemia Lump of breast, right Migraines (CMS/HCC) Social History Tobacco Use Smoking status: Never Smokeless tobacco: Not on file Substance Use Topics Alcohol use: Yes Comment: caffeine: 2-3 cups per day Drug use: Never FAMILY HISTORY Family History Problem Relation Name Age of Onset Anemia Sister Diabetes Maternal Grandmother Cancer Maternal Grandmother Hypertension Paternal Grandfather Heart disease Paternal Grandfather Melanoma Neg Hx SURGICAL HISTORY Past Surgical History: Procedure Laterality Date CERVICAL BIOPSY W/ LOOP ELECTRODE EXCISION 2013 LEEP WISDOM TOOTH EXTRACTION wisdom teeth REVIEW OF SYSTEMS Review of Systems: Review of Systems All other systems reviewed and are negative. OBJECTIVE Objective: Physical Exam Constitutional: Appearance: Normal appearance. She is well-developed. Cardiovascular: Rate and Rhythm: Normal rate and regular rhythm. Pulmonary: Effort: Pulmonary effort is normal. Breath sounds: Normal breath sounds. Abdominal: General: Bowel sounds are normal. There is no distension. Palpations: Abdomen is soft. Tenderness: There is no abdominal tenderness. There is no guarding or rebound. Musculoskeletal: General: No swelling. Normal range of motion. Right lower leg: No edema. Left lower leg: No edema. Neurological: Mental Status: She is alert and oriented to person, place, and time. Skin: General: Skin is warm and dry. Psychiatric: Mood and Affect: Mood normal. Behavior: Behavior normal. Vitals and nursing note reviewed. Exam conducted with a metal temperer present. Vitals: Estimated body mass index is 22.64 kg/m as calculated from the following: Height as of 03/14/23: 5' 5.25 . Weight as of this encounter: 137 lb 1.9 oz. BP: 120/64 Patient's last menstrual period was 06/10/2024. ASSESSMENT & PLAN ICD-10-CM 1. 13 weeks gestation of Z3A.13 New OB: Patient presents today for 1st time obstetrics appointment with provider. Patient is currently 13w6d . Patients history has been reviewed in great detail including any potential risks. Patient stated she currently has no complaints. Expectations throughout regarding labs, ultrasounds, and appointments have been discussed with the patient in detail. It was reiterated that the patient is to drink 6-8 glasses of water a day, eat 6 small meals a day, do not consume raw or undercooked meat, and stay away from [facility]. Patient has been consulted regarding any further do's and don'ts of . Patient voiced understanding and all questions and concerns were answered. Patient made aware of UTI and amoxicillin will be sent to pharmacy for GBS in urine. Patient aware that she will be treated during labor and delivery with antibiotics due to GBS. Patient has palpable bilateral axillary lumps that have reappeared since stopping breast feeding previously. Follow Up: Patient is to return in 4 weeks for routine OB appointment. Documented by Sanam Bustamante LPN on behalf of: Anjum Madison DO documented in this encounter [facility] 09-10-2024 Evaluation + Plan note Diagnostic Tests PendingRPR with Conf Rfx 09/10/24Rubella Antibody IgG 09/10/24Urine Culture 09/10/24CV Antibody RFX to Quant PCR 09/10/24IV Screen 4th Generation wRfx 09/10/24epatitis B Surface Antigen 09/10/24 [facility] 08-27-2024 Hospital Discharge instructions Patient Education 08/27/2024 16:03:40 Cough, Adult, Qdzq-zk-Uumk Cough, Adult A cough helps to clear your throat and lungs. It may be a sign of an illness or another condition. A short-term (acute) cough may last 2 3 weeks. A long-term (chronic) cough may last 8 or more weeks. Many things can cause a cough. They include: Illnesses such as: ?An infection in your throat or lungs. ?Asthma or other heart or lung problems. ?Gastroesophageal reflux. This is when acid comes back up from your stomach. Breathing in things that bother (irritate) your lungs. Allergies. Postnasal drip. This is when mucus runs down the back of your throat. Smoking. Some medicines. Follow these instructions at home: Medicines Take qwnt-qot-aodrgtc and prescription medicines only as told by your doctor. Talk with your doctor before you take cough medicine (cough suppressants). Eating and drinking Do not drink alcohol. Do not drink caffeine. Drink enough fluid to keep your pee (urine) pale yellow. Lifestyle Stay away from cigarette smoke. Do not smoke or use any products that contain nicotine or tobacco. If you need help quitting, ask your doctor. Stay away from things that make you cough. These may include perfume, candles, cleaning products, or campfire smoke. General instructions Watch for any changes to your cough. Tell your doctor about them. Always cover your mouth when you cough. If the air is dry in your home, use a cool mist vaporizer or humidifier. If your cough is worse at night, try using extra pillows to raise your head up higher while you sleep. Rest as needed. Contact a doctor if: You have new symptoms. Your symptoms get worse. You cough up pus. You have a fever that does not go away. Your cough does not get better after 2 3 weeks. Cough medicine does not help, and you are not sleeping well. You have pain that gets worse or is not helped with medicine. You are losing weight and do not know why. You have night sweats. Get help right away if: You cough up blood. You have trouble breathing. Your heart is beating very fast. These symptoms may be an emergency. Get help right away. Call 911. Do not wait to see if the symptoms will go away. Do not drive yourself to the hospital. This information is not intended to replace advice given to you by your health care provider. Make sure you discuss any questions you have with your health care provider. Document Revised: 07/13/2023 Document Reviewed: 07/13/2023 [employer] Patient Education 2023 [employer]. Follow Up Care 08/27/2024 08:04:45 With:Annika Mcdowell Address:Unknown When: Unknown [facility] 08-27-2024 Note Patient Education ENT Cough, Adult A cough helps to clear your throat and lungs. It may be a sign of an illness or another condition. A short-term (acute) cough may last 2?3 weeks. A long-term (chronic) cough may last 8 or more weeks. Many things can cause a cough. They include: ? Illnesses such as: ? An infection in your throat or lungs. ? Asthma or other heart or lung problems. ? Gastroesophageal reflux. This is when acid comes back up from your stomach. ? Breathing in things that bother (irritate) your lungs. ? Allergies. ? Postnasal drip. This is when mucus runs down the back of your throat. ? Smoking. ? Some medicines. Follow these instructions at home: Medicines ? Take krbi-nqk-tfltpnm and prescription medicines only as told by your doctor. ? Talk with your doctor before you take cough medicine (cough suppressants). Eating and drinking ? Do not drink alcohol. ? Do not drink caffeine. ? Drink enough fluid to keep your pee (urine) pale yellow. Lifestyle ? Stay away from cigarette smoke. ? Do not smoke or use any products that contain nicotine or tobacco. If you need help quitting, ask your doctor. ? Stay away from things that make you cough. These may include perfume, candles, cleaning products, or campfire smoke. General instructions ? Watch for any changes to your cough. Tell your doctor about them. ? Always cover your mouth when you cough. ? If the air is dry in your home, use a cool mist vaporizer or humidifier. ? If your cough is worse at night, try using extra pillows to raise your head up higher while you sleep. ? Rest as needed. Contact a doctor if: ? You have new symptoms. ? Your symptoms get worse. ? You cough up pus. ? You have a fever that does not go away. ? Your cough does not get better after 2?3 weeks. ? Cough medicine does not help, and you are not sleeping well. ? You have pain that gets worse or is not helped with medicine. ? You are losing weight and do not know why. ? You have night sweats. Get help right away if: ? You cough up blood. ? You have trouble breathing. ? Your heart is beating very fast. These symptoms may be an emergency. Get help right away. Call 911. ? Do not wait to see if the symptoms will go away. ? Do not drive yourself to the hospital. This information is not intended to replace advice given to you by your health care provider. Make sure you discuss any questions you have with your health care provider. Document Revised: 07/13/2023 Document Reviewed: 07/13/2023 Elsevier Patient Education ? 2023 [employer] [facility] Hospital Discharge instructions Patient Education 01/03/2023 11:40:07 Otitis Media, [...] pain. Follow these instructions at home: Take erui-ghx-qjqhauu and prescription medicines only as told by [...] 08/17/2005 Document Revised: 10/25/2018 Document Reviewed: 11/02/2017 [employer] Patient Education 2020 [employer]. 01/03/2023 11:40:02 Sinusitis, Adult, Vkdo-jk-Tnbx Sinusitis, Adult Sinusitis is soreness and swelling [...] at home: Medicines Take, use, or apply cteh-peg-uoexnvg and prescription medicines only as told by [...] is no soap and water, use hand plug maker. Do not smoke. Avoid being around people [...] 04/30/2009 Document Revised: 04/14/2019 Document Reviewed: 04/14/2019 [employer] Patient Education 2020 [employer]. Follow Up Care 01/03/2023 07:52:06 With:Violeta Constantino Address: [address] [place] [address] [place], [facility] [place] [address]- When: only if needed [facility] 11-23-2022 Evaluation + Plan note Extrac maryan [...] hours on and 12 hours off daily, [id number], 170, cm, 11/23/22 1:58:00 EST, Height/Length Dosing, [...] day(s), # 8 tab(s), Refills(s) 0, Pharmacy: [facility] #[id number], 170, cm, 11/23/22 1:58:00 EST, Height/Length Dosing, 70.3, kg, 11/23/22 1:58:00 EST, Weight Dosing predniSONE, 40 mg = 2 tab(s), Tab, Oral, Once, Stop date 11/23/22 3:52:00 EST, STAT, Start date 11/23/22 3:52:00 EST, 11/23/22 3:52:00 EST Automated Diff CBC w/ Auto Diff Comprehensive Metabolic Panel ECG 12 Lead Adult eGFR Lipase Level Troponin XR Ribs Unilat 3 Views Right w/ PA Chest [facility]12-29-2022 Hospital Discharge instructions Patient Education 11/23/2022 03:55:56 Nonspecific Chest [...] Follow these instructions at home: Medicines Take fsyi-irj-fhtzkmb and prescription medicines only as told by [...] health care provider about them or any newsymptoms. Avoid any activities that cause chest pain. [...] 08/22/2006 Document Revised: 05/15/2019 Document Reviewed: 05/15/2019 [employer] Patient Education 2020 [employer]. 11/23/2022 03:55:56 Cough, Adult Cough, Adult Coughing [...] Follow these instructions at home: Medicines Take qzqt-seg-ctlsnib and prescription medicines only as told by [...] of a condition that needs treatment. Take shjm-ngl-rcizrfc and prescription medicines only as told by your health care provider. Always cover your mouth when you cough. Contact a health care provider if you have new symptoms or a cough that does not get better after 23 weeks or gets worse. This information is not intended to replace advice given to you by your health care provider. Make sure you discuss any questions you have with your health care provider. Document Released: 05/10/2012 Document Revised: 12/01/2019 Document Reviewed: 12/01/2019 [employer] Patient Education 2020 [employer]. Follow Up Care 11/23/2022 01:54:01 With:Anjum MADISON Address: [address] [place] [address]- Business (1) When:11/26/2022 Comments:Call Dr. Madison to discuss your ED visit.Take Tylenol extra strength scheduled for the next 5 days. Use Lidoderm patches.Take steroid as prescribed. With:Pedrito SILVESTRE Address: Rajiv Modi, [facility] [address] [address]- Business (1) When:11/26/2022 Comments:Call the office of [...] legs, or any new or worsening symptoms. [facility] Future Appointments Appointment Date:09/08/2024 04:00:00 PM Scheduled Provider:Annika Mcdowell Location:[facility] Appointment Type: Open [facility] Evaluation note* Diagnosis 13 weeks gestation of Urinary tract infection without hematuria, site unspecified Axillary lump, bilateral [facility] Narrative No data available for this section [facility] No data available for this section [facility] Progress note No data available for this section [facility] Summary Purpose Family History No Family History Records Found No data available for this section No Family History Records Found No data available for this section No data available for this section No Family History Records FoundNo Family History [...] n (unrecognized section and content) Personnel Name: KONRAD SIEGEL Pedrito Packer Address: Address: [address], [address] [facility] [address] [place], [facility]- Personnel Name: Jason HURT MD Address: Address: [facility] [address] [place] [address]- Personnel Name: Jason HURT MD Address: Address: [facility] hospital [address] [place], [facility]- Personnel Name: Jason HURT MD Address: Address: [facility] access hospital [address] [place], [facility]- Personnel Name: Jason HURT MD Address: Address: Critical access hospital [address] [place], [place] [address]- INFORMATION SOURCE (unrecogn ized section and content) DATE CREATED AUTHOR 12/27/2022 [facility] DATE CREATED AUTHOR AUTHOR'S ORGANIZ ATION 09/10/2024 [facility] DATE CREATED AUTHOR AUTHOR'S ORGANIZ ATION 09/12/2024 [facility] DATE CREATED AUTHOR AUTHOR'S ORGANIZ ATION 09/13/2024 [facility] DATE CREATED AUTHOR AUTHOR'S ORGANIZ ATION 09/17/2024 [facility] DATE CREATED AUTHOR AUTHOR'S ORGANIZ ATION 09/17/2024 [facility] Reason for Visit (unrecogniz ed section and content) Reason Comments Routine Visit FOR RECORDS PERTAINING TO PATIENTS WHO ARE [...] BE BASED ON THE PRIMARY CLINICAL RECORDS. [facility] [employer] [facility]. provides no warranty or guarantee of the accuracy or completeness of information in this document.
== END 2024-10-27 14:30 | disposition home or self-care (01) ==
LOC: NOMS 14:29
PROVIDERS: Visit Provider Obstetrics & Gynecology
DX: Z36.89 Encounter for other specified antenatal screening (principal); Z3A.20 20 weeks gestation of pregnancy
CPT/HCPCS: 76805; 76817

== ENCOUNTER 2024-12-01 20:21 | Outpatient (OUT) | payer OTHER, SELFPAY ==
[2024-12-03 20:07] LABS: Age Gdln ACOG Testing Note (.); HPV Aptima Negative (Negative); IGP, Aptima HPV, rfx 16/18,45 Note (.)
== END 2024-12-01 20:22 | disposition home or self-care (01) ==
LOC: INF 20:27 → LAB 20:44
PROVIDERS: Visit Provider Physician Assistant
DX: Z01.419 Encounter for gynecological examination (general) (routine) without abnormal findings (principal)
CPT/HCPCS: 87624; 88175

== ENCOUNTER 2025-02-17 12:21 | Outpatient (REF) | payer OTHER, SELFPAY | END 2025-02-17 12:22 | disposition home or self-care (01) | LOC: LAB 12:21 | PROVIDERS: Visit Provider Obstetrics & Gynecology | DX: Z34.93 Encounter for supervision of normal pregnancy, unspecified, third trimester (principal); Z3A.36 36 weeks gestation of pregnancy | CPT/HCPCS: 36415; 87081 ==